=== PATIENT | female | born 1940 | race Caucasian/White ===

== ENCOUNTER 2020-09-13 15:53 | Emergency (ER) | payer MEDICARE, SELFPAY ==
[2020-08-11 14:41] VITALS: BMI 22.4
[2020-09-13 15:55] VITALS: BP 172/141; PULSE 96; RESP 16; TEMP 36.2; O2SAT 94; BMI 20.7
--- NOTE | 2020-09-13 16:03 | EKG12_ITS ---
Test Reason : NEURO Blood Pressure : / mmHG Vent. Rate : 099 BPM Atrial Rate : 104 BPM P-R Int : 000 ms QRS Dur : 072 ms QT Int : 366 ms P-R-T Axes : 000 054 046 degrees QTc Int : 469 ms Atrial fibrillation Abnormal ECG Confirmed by MARTIN BELLAMY, RENNY ([id number]), newspaper managing editor STEFANIA ALBERT ([id number]) on 09/16/2020 10:01:17 AM Referred By: Confirmed By:RENNY SALAZAR MD
--- NOTE | 2020-09-13 16:03 | CT_ITS ---
STUDY: CT BRAIN WITHOUT CONTRAST REASON FOR EXAM: Female, 80 years old. SYNCOPE RADIATION DOSAGE (If Supplied By Facility): CTDIvol = ( 38.43 ) mGy, DLP = ( 698.28 ) mGycm TECHNIQUE: Transaxial CT imaging of the brain was performed without administration of intravenous contrast material. Individualized dose optimization techniques were used for this CT. COMPARISON: No relevant priors. FINDINGS: Normal soft tissue structures. Normal calvarium. There is mild cerebral atrophy with widening of the extra-axial spaces and ventricular dilatation. There are areas of decreased attenuation within the white matter tracts of the supratentorial brain, consistent with microvascular disease changes. Old lacunar infarcts in the basal ganglia. Normal brainstem. There is mild cerebellar atrophy. There is no intracranial hemorrhage. There are no findings of an acute ischemic infarction. Normal visualized paranasal sinuses. CT/Brain/Head without Contrast IMPRESSION: Chronic involutional changes of the brain. No acute hemorrhage Electronically Signed: Jamey Givens MD at 16:43 EDT , Service support ,
--- NOTE | 2020-09-13 16:30 | RAD_ITS ---
STUDY: X-RAY CHEST REASON FOR EXAM: Female, 80 years old. Chest pain/pressure TECHNIQUE: PA and lateral views of the chest. COMPARISON: None. FINDINGS: Lungs are mildly hyperexpanded with chronic interstitial changes, no superimposed acute pulmonary process There is no demonstrated pleural abnormality. Normal size heart. Normal mediastinum and beth. Normal visualized pulmonary arteries. Normal visualized aortic arch and descending thoracic aorta. There are diffuse degenerative changes of the visualized thoracic spine. There is degenerative osteoarthritis of the bilateral shoulders. There is no demonstrated abnormality of the visualized soft tissue structures of the upper abdomen. RAD/Chest PA and Lateral IMPRESSION: Mildly hyperexpanded lungs with chronic interstitial changes, no superimposed acute pulmonary process Electronically Signed: Jamey Givens MD at 16:44 EDT , Service support ,
--- NOTE | 2020-09-13 16:32 | NURSING ---
NO OLD EKGS
--- NOTE | 2020-09-13 18:21 | EDS_ITS ---
HPI History of Present Illness Chief Complaint: Headache Informant: patient and spouse/S.O. Narrative Narrative: History is obtained from multiple people. Patient does have a history of dementia. She states that last she had a pulling sensation in the back of her head. This sensation is actually chronic and has been going on a long time. It is not pain but it is a pulling feeling. She states when she woke up the next day, she feels her vision is off and her balance is off. She states she cannot read the newspaper. However, her family contradicts this. Her states she was reading the newspaper for a while this morning with no problems whatsoever. They state that sometimes her vision comes and goes and is better and worse. states that the patient's been walking around the house is normal. She has some days where she steadier than others but he has noted no difference in the last 10 days. She does have a role levator as well as a cane but she does not usually use those. The patient's son states that 4 days ago she was great. Another family member who is not here thought she was a little bit unsteady today. The story I get from each individual is quite variable. But they all agree that she has had all the symptoms off and on in the past. She does have a history of TIAs or strokes. She had a left carotid stenting. She has a history of atrial fibrillation but takes baby aspirin and Coumadin. [facility] Medical History Anxiety BPPV (benign paroxysmal positional vertigo) CKD (chronic kidney disease) stage 3, GFR 30-59 ml/min COPD (chronic obstructive pulmonary disease) Diverticulosis of colon Essential hypertension GERD (gastroesophageal reflux disease) History of CVA (cerebrovascular accident) Hyperlipidemia Nonrheumatic mitral (valve) insufficiency Osteoarthritis Pericardial effusion Persistent atrial fibrillation PVD (peripheral vascular disease) Stenosis of left carotid artery Syncope Vascular dementia Home Medications acidophilus 7.5 mg (30 million cell)-pectin, citrus 100 mg capsule cap PO 08/10/20 [History Last Taken Unknown] aspirin 81 mg tablet,delayed release 81 mg PO DAILY 08/10/20 [History Last Taken Unknown] atorvastatin 40 mg tablet 40 mg PO QHS 08/10/20 [History Last Taken Unknown] budesonide-formoterol HFA 160 mcg-4.5 mcg/actuation aerosol inhaler 2 puff INHALATION BID 08/10/20 [History Last Taken Unknown] donepezil 10 mg tablet 10 mg PO QHS 08/10/20 [History Last Taken Unknown] ipratropium 0.5 mg-albuterol 3 mg (2.5 mg base)/3 mL nebulization soln 3 ml INHALATION Q6H PRN 08/10/20 [History Last Taken Unknown] metoprolol tartrate 25 mg tablet 25 mg PO BID 08/10/20 [History Last Taken Unk nown] paroxetine HCl 10 mg tablet 10 mg PO DAILY 08/10/20 [History Last Taken Unknown] tiotropium bromide 18 mcg capsule with inhalation device 1 cap INHALATION DAILY 08/10/20 [History Last Taken Unknown] docusate sodium 100 mg capsule 100 mg PO BID 08/11/20 [History Last Taken Unknown] guaifenesin 600 mg tablet, extended release 12 hr 600 mg PO DAILY tab 08/11/20 [History Last Taken Unknown] lisinopril 5 mg tablet 5 mg PO DAILY #90 tab 08/11/20 [Rx Last Taken Unknown] warfarin 2 mg tablet 2 mg PO .COMPLEX #1 tab 08/11/20 [Rx Last Taken Unknown] furosemide [Lasix] 40 mg PO DAILY 09/13/20 [History Last Taken Unknown] Allergy/AdvReac Type Severity Reaction Status Date / Time esomeprazole [From Nexium] Allergy Unknown unknown Verified 08/11/20 14:47 levofloxacin [From Levaquin] Allergy Unknown Rash Verified 08/11/20 14:47 mannitol [From Reclast] Allergy Unknown unknown Verified 08/11/20 14:47 omeprazole Allergy Unknown stomach Verified 08/11/20 14:47 cramps Sulfa (Sulfonamide Allergy Unknown unknown Verified 08/11/20 14:47 Antibiotics) water for injection,sterile Allergy Unknown unknown Verified 08/11/20 14:47 [From Reclast] zoledronic acid Allergy Unknown unknown Verified 08/11/20 14:47 [From Reclast] Family History Mother Parkinson's disease dementia Brother Lupus Sister Sayre's chorea Surgical History History of bilateral cataract extraction History of left common carotid artery stent placement (11/19/19) History of total abdominal hysterectomy History of tubal ligation Social History Smoking Status: Former smoker Tobacco: How many years used: 40 alcohol intake: current substance use type: does not use caffeine: Yes Type: coffee ROS ROS ED Constitutional Constitutional ED: Denies fever(s) or subjective Eyes Eyes: Reports blurry vision and change in vision; Denies diplopia ENT ENT ED: Denies rhinorrhea Cardiovascular Cardiovascular: Denies chest pain or palpitations Respiratory/Chest Respiratory/Chest: Denies cough or dyspnea Gastrointestinal Gastrointestinal: Denies abdominal pain, nausea or vomiting Genitourinary Genitourinary ED: Denies dysuria Musculoskeletal Musculoskeletal: Denies back pain or neck pain Integumentary Denies rash Neurologic Neurologic: Reports other; Denies headache(s), paresthesias or weakness Allergic/Immunologic Allergic/Immunologic ED: Denies urticaria EXAM Physical Exam Const Vital Signs: 09/13/20 15:55 09/13/20 18:28 09/13/20 20:10 Temperature 97.2 F L Temperature Source Temporal Pulse Rate 96 55 L 102 H Respiratory Rate 16 21 H 18 Blood Pressure 172/141 H 118/76 114/84 H Blood Pressure Mean 151 90 94 Pulse Ox 94 92 95 Oxygen Delivery Method Room Air Room Air Room Air Positive well nourished and well developed General Appearance ED: well developed and NAD HEENT Negative for trauma or tenderness Eyes EOMs intact bilaterally Chest Wall inspection of chest normal Resp normal respiratory effort and clear to auscultation bilaterally Cardio regular rate Rhythm: abnormal rhythm GI normal to inspection, nondistended, normoactive bowel sounds and non-tender Palpation: soft Back/Spine no CVA tenderness General Back: Negative for CVA tenderness Extremity normal to inspection Neuro oriented x3 Neuro Narrative: Patient even changed her story on occasion. I got her up and she walked well in the room. There is no discoordination. I find no focal deficit. By her history she states she was not seeing well but she sees well now. She states she can see this morning but according to her she was reading the paper. Sensorium / Orientation: alert Psych mental status grossly normal Skin no rashes or lesions noted MDM MDM MDM Narrative Medical decision making narrative: Patient's electrolytes show mild elevation in creatinine. I do not have old to compare to. CBC is overall normal. INR is just minimally low at 1.8. This is overall still relatively therapeutic. CT of the head shows chronic changes. Patient speech is clear. Her neuro exam is. Normal. She can read here. She is gotten up and walked. She walked to the bathroom. She is stable. She states she has been having trouble reading and walking but her family denies this. I am not sure if this is dementia. Even if this was a small TIA, it happened about 10 or 11 days ago and symptoms are really resolved. She is already on maximal therapy. I do not think the combination of all symptoms require admission. Lab Data Labs: Laboratory Results - last 24 hr 09/13/20 09/13/20 09/13/20 18:15 18:15 18:40 WBC 10.3 RBC 4.53 Hgb 13.0 Hct 42.6 MCV 94.0 MCH 28.7 MCHC 30.5 L RDW Std Deviation 55.7 H RDW Coeff of Jonathan 16.3 H Plt Count 169 MPV 11.8 Immature Gran % (Auto) 0.500 Neut % (Auto) 55.8 Lymph % (Auto) 32.4 [place] % (Auto) 8.2 Eos % (Auto) 2.6 Baso % (Auto) 0.5 Absolute Neuts (auto) 5.8 Absolute Lymphs (auto) 3.35 Nucleated RBC % 0 PT 19.8 H INR 1.8 Sodium 142 Potassium 4.0 Chloride 104 Carbon Dioxide 34.0 H Anion Gap 4 L BUN 26 H Creatinine 1.48 H Estim Creat Clear Calc 22.11 Est GFR (MDRD) Af Amer 43 L Est GFR (MDRD) Non-Af 36 L BUN/Creatinine Ratio 17.6 Glucose 94 Calcium 9.4 Radiography Diagnostic Testing: Radiology Impression Brain CT 09/13/20 16:03 IMPRESSION: Chronic involutional changes of the brain. No acute hemorrhage Electronically Signed: Jamey Givens MD at 16:43 EDT , Service support , Chest X-Ray 09/13/20 16:30 IMPRESSION: Mildly hyperexpanded lungs with chronic interstitial changes, no superimposed acute pulmonary process Electronically Signed: Jamey Givens MD at 16:44 EDT , Service support , EKG Initial EKG: Comments: EKG shows atrial fibrillation which is chronic. Overall rate is controlled at 99. No ventricular ectopy. No acute ST elevation or depression. QRS duration and QTc are normal. Discharge Plan Triage Chief Complaint: Headache ED Provider: Ar Nicole Dx/Rx/DC Orders Clinical Impression: Pressure in head Instructions: ED Headache Unspecified Prescriptions: No Action warfarin 2 mg tablet 2 mg PO .COMPLEX Qty: 1 RF: 0 guaifenesin [Mucus Relief ER] 600 mg tablet extended release 12hr 600 mg PO DAILY RF: 0 docusate sodium [Dulcolax Stool Softener (dss)] 100 mg capsule 100 mg PO BID RF: 0 lisinopril 5 mg tablet 5 mg PO DAILY Qty: 90 RF: 3 acidophilus-pectin, citrus 7.5 mg (30 mill cell)-100 mg capsule PO RF: 0 ipratropium-albuterol 0.5 mg-3 mg(2.5 mg base)/3 mL solution for nebulization 3 ml inhalation Q6H PRN (Reason: Wheezing) RF: 0 aspirin [Adult Low Dose Aspirin] 81 mg tablet,delayed release (DR/EC) 81 mg PO DAILY RF: 0 atorvastatin 40 mg tablet 40 mg PO QHS RF: 0 metoprolol tartrate 25 mg tablet 25 mg PO BID RF: 0 paroxetine HCl 10 mg tablet 10 mg PO DAILY RF: 0 donepezil 10 mg tablet 10 mg PO QHS RF: 0 Spiriva with HandiHaler 18 mcg capsule, w/inhalation device 1 cap inhalation DAILY RF: 0 budesonide-formoterol [Symbicort] 160-4.5 mcg/actuation HFA aerosol inhaler 2 puff inhalation BID RF: 0 furosemide [Lasix] 40 mg tablet 40 mg PO DAILY RF: 0 Primary Care Provider: Manfred Grewal Referrals: Manfred Grewal MD [Primary Care Provider] - 3-5 Days Disposition Disposition: Home, Self Care
[2020-09-13 18:28] VITALS: BP 118/76; PULSE 55; RESP 21; O2SAT 92
[2020-09-13 18:45] LABS: Absolute Lymphocyte Count 3.35 X10^3/uL (0.83-4.51); Absolute Neutrophil Count 5.8 X10^3/uL (2.0-7.7); Basophil# 0.05 X10^3/uL; Basophil% 0.5 % (0-1); Eosinophil# 0.27 X10^3/uL; Eosinophils% 2.6 % (0-5); Hematocrit 42.6 % (37-47); Lymphocyte # 3.35 X10^3/ul (0.83-4.51); Lymphocyte % 32.4 % (19-41); Mean Corp Hgb Conc 30.5 g/dL (32-36); Mean Corpuscular Hgb 28.7 pg (27.0-32.0); Mean Platelet Vol. 11.8 fl (6.2-12.0); Monocyte# 0.85 X10^3/uL; Monocyte% 8.2 % (0-10); NRBC Flagged by Analyzer 0 % (0-5); Neutrophil # 5.76 X10^3/uL (2.7-7.7); Neutrophil % 55.8 % (47-70); Platelet Count 169 K/mm3 (150-450); RBC Distribution Width CV 16.3 % (11.6-14.6); RBC Distribution Width SD 55.7 fl (35.1-43.9); Red Blood Count 4.53 M/mm3 (4.2-5.4); White Blood Count 10.3 K/mm3 (4.4-11.0)
[2020-09-13 19:08] LABS: Anion Gap 4 (5-15); BUN 26 mg/dL (7-18); BUN/Creat Ratio 17.6 RATIO (10-20); Calcium,Total 9.4 mg/dL (8.5-10.1); Chloride 104 mmol/L (98-107); Creatinine, Serum 1.48 mg/dL (0.55-1.02); EST Glomerular Filtration Rate 36 mL/min (>60); Est Glom Filt Rate - Afr Amer 43 mL/min (>60); Estimated Creatinine Clearance 22.11 ml/min; Glucose 94 mg/dL (74-106); Sodium Level 142 mmol/L (136-145)
[2020-09-13 19:18] LABS: International Normalized Ratio 1.8; Prothrombin Time (Protime)PT. 19.8 SECONDS (11.7-14.9)
[2020-09-13 20:10] VITALS: BP 114/84; PULSE 102; RESP 18; O2SAT 95
[2020-09-13 20:50] VITALS: BP 114/84; PULSE 85; RESP 21; O2SAT 95
== END 2020-09-13 20:51 | disposition home or self-care (01) ==
PROVIDERS: Emergency Provider Emergency Medicine; PCP Internal Medicine
DX: R51.9 Headache, unspecified (principal); I48.20 Chronic atrial fibrillation, unspecified; E78.5 Hyperlipidemia, unspecified; F01.50 Vascular dementia, unspecified severity, without behavioral disturbance, psychotic disturbance, mood disturbance, and anxiety; F41.9 Anxiety disorder, unspecified; I12.9 Hypertensive chronic kidney disease with stage 1 through stage 4 chronic kidney disease, or unspecified chronic kidney disease; J44.9 Chronic obstructive pulmonary disease, unspecified; K21.9 Gastro-esophageal reflux disease without esophagitis; M19.90 Unspecified osteoarthritis, unspecified site; K57.30 Diverticulosis of large intestine without perforation or abscess without bleeding; N18.30 Chronic kidney disease, stage 3 unspecified; Z79.01 Long term (current) use of anticoagulants; Z79.82 Long term (current) use of aspirin; Z79.899 Other long term (current) drug therapy; Z86.73 Personal history of transient ischemic attack (TIA), and cerebral infarction without residual deficits; Z87.891 Personal history of nicotine dependence
CPT/HCPCS: 70450; 71046; 80048; 85025; 85610; 93005; 99284; J7030

== ENCOUNTER 2022-06-08 08:30 | Outpatient (RCR) | payer MEDICARE, SELFPAY ==
[2022-05-25 09:10] VITALS: BP 105/60; PULSE 99; RESP 16; TEMP 35.5
--- NOTE | 2022-05-25 10:46 | PCM.WC.HP ---
History of Present Illness Date of Service: 05/25/22 Chief Complaint: Left lower extremity wound x2 History of Wound: Patient is an 81-year-old female who was referred to the wound care center for left lower extremity ulceration x2. She is a resident of [facility]. 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 Prior to being seen in the wound care center she was being treated by Anushka Dong CNP. She has undergone LEAS on 05/15/2022. She is not currently on antibiotics. Review of the notes state ulceration to the left anterior lower extremity is secondary to bumping her leg, while the posterior left lower extremity ulceration started as a eschar on the back of the leg and subsequently broke down. Patient states these wounds may have been present for a year, however her history seems poor. Stamp Pad Finisher states wounds have been present for a few weeks. [facility] Medical History (Updated 05/25/22 @ 12:[address] Asad Asher DPM) Anxiety BPPV (benign paroxysmal positional vertigo) CKD (chronic kidney disease) stage 3, GFR 30-59 ml/min COPD (chronic obstructive pulmonary disease) Diverticulosis of colon Essential hypertension GERD (gastroesophageal reflux disease) History of CVA (cerebrovascular accident) Hyperlipidemia Nonrheumatic mitral (valve) insufficiency Osteoarthritis Pericardial effusion Persistent atrial fibrillation PVD (peripheral vascular disease) Stenosis of left carotid artery Syncope Vascular dementia Home Medications acidophilus 7.5 mg (30 million cell)-pectin, citrus 100 mg capsule cap PO 08/10/20 [History Last Taken Unknown] aspirin 81 mg tablet,delayed release (Adult Low Dose Aspirin) 81 mg PO DAILY 08/10/20 [History Last Taken Unknown] atorvastatin 40 mg tablet 40 mg PO QHS 08/10/20 [History Last Taken Unknown] budesonide-formoterol HFA 160 mcg-4.5 mcg/actuation aerosol inhaler (Symbicort) 2 puff inhalation BID 08/10/20 [History Last Taken Unknown] donepezil 10 mg tablet 10 mg PO QHS 08/10/20 [History Last Taken Unknown] ipratropium 0.5 mg-albuterol 3 mg (2.5 mg base)/3 mL nebulization soln 3 ml inhalation Q6H PRN Wheezing 08/10/20 [History Last Taken Unknown] metoprolol tartrate 25 mg tablet 25 mg PO BID 08/10/20 [History Last Taken Unknown] paroxetine HCl 10 mg tablet 10 mg PO DAILY 08/10/20 [History Last Taken Unknown] tiotropium bromide 18 mcg capsule with inhalation device (Spiriva with HandiHaler) 1 cap inhalation DAILY 08/10/20 [History Last Taken Unknown] docusate sodium 100 mg capsule (Dulcolax Stool Softener (docusate)) 100 mg PO BID 08/11/20 [History Last Taken Unknown] guaifenesin 600 mg tablet, extended release 12 hr (Mucus Relief ER) 600 mg PO DAILY 08/11/20 [History Last Taken Unknown] lisinopril 5 mg tablet 5 mg PO DAILY #90 tabs 08/11/20 [Rx Last Taken Unknown] warfarin 2 mg tablet 2 mg PO .COMPLEX #1 TAB 08/11/20 [Rx Last Taken Unknown] furosemide 40 mg tablet (Lasix) 40 mg PO DAILY 09/13/20 [History Last Taken Unknown] Allergy/AdvReac Type Severity Reaction Status Date / Time esomeprazole [From Nexium] Allergy Unknown unknown Verified 08/11/20 14:47 levofloxacin [From Levaquin] Allergy Unknown Rash Verified 08/11/20 14:47 mannitol [From Reclast] Allergy Unknown unknown Verified 08/11/20 14:47 omeprazole Allergy Unknown stomach Verified 08/11/20 14:47 cramps Sulfa (Sulfonamide Allergy Unknown unknown Verified 08/11/20 14:47 Antibiotics) water for injection,sterile Allergy Unknown unknown Verified 08/11/20 14:47 [From Reclast] zoledronic acid Allergy Unknown unknown Verified 08/11/20 14:47 [From Reclast] Family History Mother Parkinson's disease dementia Brother Lupus Sister Donald's chorea Surgical History History of bilateral cataract extraction History of left common carotid artery stent placement (11/19/19) History of total abdominal hysterectomy History of tubal ligation Social History Smoking Status: Former smoker Tobacco: How many years used: 40 alcohol intake: current substance use type: does not use caffeine: Yes Type: coffee ROS Constitutional Constitutional: Denies chills, fatigue, fever(s) or malaise Eyes Eyes: Denies blurry vision, change in vision or eye pain ENT HEENT: Denies dysphagia, nasal congestion or sore throat Cardiovascular Cardiovascular: Denies chest pain, claudication or palpitations Respiratory/Chest Respiratory/Chest: Denies cough or shortness of breath at rest Gastrointestinal Gastrointestinal: Denies abdominal pain, constipation, diarrhea, nausea or vomiting Genitourinary Genitourinary: Denies dysuria, hematuria or urinary frequency Musculoskeletal Musculoskeletal: Denies back pain, joint pain, joint stiffness or joint swelling Integumentary Integumentary: Denies lesions, pruritus or rash Neurologic Neurologic: Denies dizziness, numbness or seizures Psychiatric Psychiatric: Reports anxiety Endocrine Endocrinology: Denies cold intolerance or heat intolerance Vital Signs Vital Signs Vital Signs: 05/25/22 09:10 Temperature 95.9 F L Temperature Source Temporal Pulse Rate 99 Respiratory Rate 16 Blood Pressure 105/60 Blood Pressure Mean 75 Blood Pressure Source Monitor Blood Pressure Position Sitting Blood Pressure Location Right Arm Oxygen Delivery Method Nasal Cannula Oxygen Flow Rate (L/min) 2 Physical Exam Const alert, oriented x3 and no apparent distress General Appearance: cooperative HEENT normocephalic Eyes General Eye: normal appearance of both eyes Neck General: normal visual inspection Lymph Lymphatic: no lymphadenopathy noted and no lymphedema noted Resp normal respiratory effort Cardio regular rate and regular rhythm Extremity normal capillary refill, no calf tenderness and no pedal edema Extremity Narrative: DP and PT pulses nonpalpable and monophasic on Doppler. Capillary fill time is delayed to the digits. Normal temperature gradient with absent hair growth to the digits. +2 pitting edema about the lower extremity. No pedal edema is noted. Musculoskeletal: Muscle strength 5/5 and age-appropriate. Skin no rashes or lesions noted, skin turgor normal and no jaundice Wound Narrative: Left lower extremity: Anterior leg ulceration with mixed fibrogranular layer and friable skin about the border of the wound. Posterior medial ulceration demonstrates mixed fibrogranular layer about the outer margins with thick dense eschar at the central aspect of the wound with slight malodor secondary to eschar breakdown and localized erythema about the wound margin. Ulcerations demonstrate no purulent drainage, no palpable fluctuance/bogginess, no visible abscess formation, no lymphangitis. Neuro moves all extremities Debridement Note Debridement Note Wound debrided: Left lower extremity x2 Laterality: Left Wound Grade/Stage: Chappell stage I Type of Debridement: Excisional debridement Anesthesia Used: 5% Lidocaine Gel Depth: Down to and including healthy tissue and in the subcutaneous layer Percentage of wound debrided: 100 Instrument Used: - (4 cc 1% lidocaine with epinephrine) Severity: Fat Layer Exposed Amount of bleeding with debridement: Mild Bleeding Controlled with: Compression and gauze Patient tolerated procedure: Patient tolerated procedure well Post-Debridement Measurements and Additional Note: Post-Debridement Measurements/Treatment - Nurse 1 - General Ulcer Assessment Start: 05/25/22 09:10 Freq: Status: Active Protocol: KENDALL Activity Type Activity Date Activity User E-sign Co-sign Detail Recorded Client Recorded Date Recorded By Document 05/25/22 09:10 DEBBY [id number] 05/25/22 09:21 DEBBY 05/25/22 09:10 - Today's Visit Information Type of service Initial Visit Arrival Mode Wheelchair Transfer Assistance Other Transfer Assist (Other) 2 stand by Accompanied by nurse Patient Identification Verified (Name & Yes ) Patient Requires Transmission-Based No Precautions Vital Signs Temperature (97.8 F-99.1 F) 95.9 F L Temperature Source Temporal Pulse Rate (60-100) 99 Pulse Location Monitor Respiratory Rate (12-18) 16 Respiratory rate source Observation Oxygen Delivery Method Nasal Cannula O2 L/MIN 2 Blood Pressure (90/60-120/80) 105/60 Blood Pressure Mean 75 Source Monitor Position Sitting Blood Pressure Location Right Arm History Since Last Visit- (Skip if this is Patient's initial visit) Left Footwear Regular Shoe Right Footwear Regular Shoe Pain Scale: 0-10 Numeric Is Patient Pain Free? Yes Communication Assessment Preferred language Ivorian Water Pollution Scientist Required No Right Hearing Abillity Hard of Hearing Left Hearing Abillity Hard of Hearing Visual Assistive Devices Glasses Teaching Assessment Preferences Verbal,Written, Audio/Visual, Demonstration Barriers to Learning None Anxiety Level Calm Cooperation Cooperative [facility] Nurse 1 - General Ulcer Measurement Start: 05/25/22 09:10 Freq: Status: Active Protocol: Activity Type Activity Date Activity User E-sign Co-sign Detail Recorded Client Recorded Date Recorded By Document 05/25/22 09:10 [id number] 05/25/22 09:21 05/25/22 09:10 Wound Center Nurse 1 #2- L MED CALF -Combined with other wound No -Current Size (cm) - Length 5.7 -Current Size (cm) - Width 3 -Current Size (cm) - Depth 0.3 -Total Square Cm 17.1 -Date of Last Picture (Recall this 05/25/22 field) -Photo Taken Yes -Epithelialization None Present -Tunneling No -Undermining/Tunneling No -Circular Undermining No -Exudate Amt Medium -Exudate Type Serosanguineous -Wound Margin Distinct, Outline Attached -Granulation Amt None Present (0 %) -Slough/Fibrin Yes -Necrosis Amt Large (67-100%) -Necrotic Tissue Type Eschar -Texture (Senia-wound Skin Appearance) Assessed, Scarring -Moisture (Senia-wound Skin Appearance) Assessed -Color (Senia-wound Skin Appearance) Assessed, Erythema -Temperature (Senia-wound Skin No Abnormality Appearance) (Pt Warm) -Tenderness on Palpation (Senia-wound No Skin Appearance) -Ulcer Cleansing Rinsed/ Irrigated with Saline -Foul Odor after Cleansing No -Anesthetic Used 5% Lidocaine Gel #1- L GARDNER -Combined with other wound No -Current Size (cm) - Length 0.7 -Current Size (cm) - Width 0.8 -Current Size (cm) - Depth 0.1 -Total Square Cm 0.56 -Date of Last Picture (Recall this 05/25/22 field) -Photo Taken Yes -Epithelialization None Present -Tunneling No -Undermining/Tunneling No -Circular Undermining No -Exudate Amt Medium -Exudate Type Serosanguineous -Wound Margin Distinct, Outline Attached -Granulation Amt Small (1-33%) -Granulation Quality Red -Slough/Fibrin Yes -Necrosis Amt Large (67-100%) -Necrotic Tissue Type Adherent Slough -Texture (Senia-wound Skin Appearance) Assessed, Scarring -Moisture (Senia-wound Skin Appearance) Assessed -Color (Senia-wound Skin Appearance) Assessed, Erythema -Temperature (Senia-wound Skin No Abnormality Appearance) (Pt Warm) -Tenderness on Palpation (Senia-wound Yes Skin Appearance) -Ulcer Cleansing Rinsed/ Irrigated with Saline -Foul Odor after Cleansing No -Anesthetic Used 5% Lidocaine Gel Lower Limb Edema Present Yes Right Calf (cm) 27.6 Right Ankle (cm) 21 Left Calf (cm) 28.5 Left Ankle (cm) 23.3 WC - Nurse 2 - General Ulcer CM Notes Start: 05/25/22 09:10 Freq: Status: Active Protocol: Activity Type Activity Date Activity User E-sign Co-sign Detail Recorded Client Recorded Date Recorded By Document 05/25/22 09:38 PL [id number] 05/25/22 09:41 PL Document 05/25/22 09:47 PL [id number] 05/25/22 10:14 PL 05/25/22 05/25/22 09:38 09:47 Wound Center Nurse 2 #2- L MED CALF -Time 09:50 -Correct Patient Yes -Correct Side, Site, Position Yes -Correct Procedure Yes -Procedure Performed Yes -Type of Procedure Debridement -Clinical Debridement Subcutaneous -Tissue Removed Epidermis, Subcutaneous -Post Debridement (cm) - Length 0.5 -Post Debridement (cm) - Width 0.6 -Post Debridement (cm) - Depth 0.1 -Total Square (Post) (cm) 0.30 -Area of Debridement (cm) - Length 0.5 -Area of Debridement (cm) - Width 0.6 -Total Square (Area) (cm) 0.30 -Tunneling No -Undermining/Tunneling No -Circular Undermining No -Wound/Ulcer Outcome Not Healed -Ulcer Cleansing Rinsed/ Irrigated with Saline -Foul Odor after Cleansing No -Bioengineered Tissue No -Bleeding Controlled with Pressure -Treatment Response Procedure Tolerated Well -Debridement - Subq, 1st 20sq cm No #1- L GARDNER -Time 09:50 -Correct Patient Yes -Correct Side, Site, Position Yes -Correct Procedure Yes -Procedure Performed Yes -Type of Procedure Debridement -Clinical Debridement Subcutaneous -Tissue Removed Subcutaneous -Post Debridement (cm) - Length 0.5 -Post Debridement (cm) - Width 0.5 -Post Debridement (cm) - Depth 0.1 -Total Square (Post) (cm) 0.25 -Area of Debridement (cm) - Length 0.5 -Area of Debridement (cm) - Width 0.5 -Total Square (Area) (cm) 0.25 -Tunneling No -Undermining/Tunneling No -Circular Undermining No -Wound/Ulcer Outcome Not Healed -Ulcer Cleansing Rinsed/ Irrigated with Saline -Foul Odor after Cleansing No -Bioengineered Tissue No -Bleeding Controlled with Pressure -Treatment Response Procedure Tolerated Well -Debridement - Subq, 1st 20sq cm Yes Pain Scale: 0-10 Numeric Is Patient Pain Free? Yes Yes - Nurse 3 - General Ulcer D/C NN Start: 05/25/22 09:10 Freq: Status: Active Protocol: Activity Type Activity Date Activity User E-sign Co-sign Detail Recorded Client Recorded Date Recorded By Document 05/25/22 10:20 [facility] [id number] 05/25/22 10:21 [facility] 05/25/22 10:20 Wound Care Center Nurse 3 #2- L MED CALF -Ulcer Cleansing Rinsed/ Irrigated with Saline -Foul Odor after Cleansing No -Primary Dressing Applied Promogran Nargis Matter -Other Dressing ABD -Primary Dressing Covered/Secured with Dry Gauze & Roll Gauze, Secured with Tape -Promogran Nargis Matter 1 #1- L GARDNER -Ulcer Cleansing Rinsed/ Irrigated with Saline -Foul Odor after Cleansing No -Primary Dressing Applied Promogran Nargis Matter -Primary Dressing Covered/Secured with Dry Gauze & Roll Gauze, Secured with Tape -Promogran Nargis Matter 0 Left -Tubular Bandage Single Layer -Size of Tubigrip Used Size C -Size C ($) 1 Treatment Response Procedure Tolerated Well Pain Scale: 0-10 Numeric Is Patient Pain Free? Yes - Visit Discharge Discharge Condition Stable Ambulatory Status Wheelchair Transportation ECF Facility Type Group Home Care Facility Assessment/Plan Assessment/Plan (1) CHF (congestive heart failure), NYHA class III: CODE(S): I50.9 - Heart failure, unspecified (2) Essential hypertension: CODE(S): I10 - Essential (primary) hypertension (3) Hyperlipidemia: CODE(S): E78.5 - Hyperlipidemia, unspecified (4) CKD (chronic kidney disease) stage 3, GFR 30-59 ml/min: CODE(S): N18.30 - Chronic kidney disease, stage 3 unspecified (5) Difficulty in walking, not elsewhere classified: CODE(S): R26.2 - Difficulty in walking, not elsewhere classified (6) Unspecified severe protein-calorie malnutrition: CODE(S): E43 - Unspecified severe protein-calorie malnutrition (7) Atherosclerosis of unga arteries of left leg with ulceration of calf: CODE(S): I70.242 - Atherosclerosis of unga arteries of left leg with ulceration of calf (8) Non-pressure chronic ulcer of left calf with fat layer exposed: CODE(S): L97.222 - Non-pressure chronic ulcer of left calf with fat layer exposed (9) PVD (peripheral vascular disease): CODE(S): I73.9 - Peripheral vascular disease, unspecified PLAN: Plan Patient seen and evaluated She did undergo LEAS on 05/15/2022. Doppler evaluation of bilateral lower extremity arteries was obtained and waveforms were noted to be multiphasic and monophasic continuously bilaterally. Velocities are as follows: Right: Common femoral artery 114; SFA proximal, mid, and distal 98, 98, and 45; popliteal artery 38; posterior tibial artery 12 mono; DP not visualized. Left: Common femoral artery 40 to continuity/parvus; SFA proximal, mid, distal 39, 24, 22 mono continuous/parvus; popliteal artery 19 mono continuous/parvus; posterior tibial artery not visualized; dorsalis pedis artery not visualized. Conclusion: Nonvisualization of bilateral dorsalis pedis and right posterior tibial does not exclude occlusion. There is greater than 50% stenosis throughout the entire left lower extremity and there is left aortoiliac disease. She will be referred to vascular surgeon, Dr. Easton for further evaluation. She has 2 left lower extremity ulcerations: #1 anterior leg ulceration with mixed fibrogranular layer and friable skin about the border of the wound measures 0.3 cm x 0.5 cm x 0.1 cm. No signs of infection. #2 posterior medial ulceration demonstrates mixed fibrogranular layer about the outer margins with thick dense eschar at the central aspect of the wound with slight malodor secondary to eschar breakdown and localized erythema about the wound margin, ulceration measures 5.5 cm x 3.1 cm x 0.1 cm. Ulcerations underwent debridement as noted in the clinical panel above. Due to the localized redness about the rim of the ulcerative site of the posterior medial wound she was placed on oral doxycycline 100 mg twice daily x 10 days. Nargis applied to the ulcerative sites and dressed with dry sterile dressing. Tubigrip compression applied to the left lower extremity. snf facility to change dressings daily. Encouraged pressure reduction of the site by ensuring the leg does not hang off the edge of the bed or have anything resting against the back of the leg this is including her contralateral heel as she often sleeps on her side. Encouraged continued protein intake and healthy amount of calories to aid in healing of her ulcerative sites. Signs and symptoms of infection were discussed today with the skilled nursing facilities professional and patient. She was instructed if she notices increasing redness about the wound site moving up the leg, any purulent drainage from the ulcer sites, increasing foul odor, or if she experiences fever greater than 101 degree, nausea, vomiting, or chills that these are signs of a progressing infection and she should report to the ED for IV antibiotics. The following work up and care recommendations were made: Dressing: Nargis dry sterile dressing, Tubigrip compression Wash: Tissue growth optimization: Offload: Offload left lower extremity at all times for pressure reduction about the ulcerative site Vascular: LEAS performed on 05/15/2022 demonstrate moderate arterial stenosis of the left lower extremity. Referral to vascular surgery placed with Dr. Easton Edema: Tubigrip compression and elevation of lower extremities at times of rest Pain: May take [id number] Tylenol extra strength for discomfort Host factors: PVD I answered all the patient's questions. To return to the wound healing center in 1 week or call sooner if the patient has any questions or concerns.
[2022-06-01 08:34] VITALS: BP 96/54; PULSE 99; RESP 16; TEMP 36.8
--- NOTE | 2022-06-01 08:47 | PCM.WC.PN ---
History of Present Illness Date of Service: 06/01/22 Chief Complaint: Left lower extremity wound x2 History of Wound: Patient is an 81-year-old female who was referred to the wound care center for left lower extremity ulceration x2. She is a resident of [facility]. 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 Prior to being seen in the wound care center she was being treated by Anushka Dong CNP. She has undergone LEAS on 05/15/2022. She is not currently on antibiotics. Review of the notes state ulceration to the left anterior lower extremity is secondary to bumping her leg, while the posterior left lower extremity ulceration started as a eschar on the back of the leg and subsequently broke down. Patient states these wounds may have been present for a year, however her history seems poor. Software Quality Assurance Engineer states wounds have been present for a few weeks. Subjective Subjective Patient is an 81-year-old female who presents to the wound care center for follow-up of to left lower extremity ulcerations. Nursing facility has been changing the dressings daily. She denies any constitutional symptoms today. Denies any further complaints today. Objective Data Objective Data Vital Signs: Vital Signs Temp Pulse Resp BP O2 Del Method O2 Flow Rate 98.3 F 99 16 96/54 L Nasal Cannula 2 06/01/22 08:34 06/01/22 08:34 06/01/22 08:34 06/01/22 08:34 05/25/22 09:10 05/25/22 09:10 Oxygen Flow Rate (L/min) 2 Oxygen Delivery Method Nasal Cannula Physical Exam Const alert, oriented x3 and no apparent distress General Appearance: cooperative HEENT normocephalic Eyes General Eye: normal appearance of both eyes Neck General: normal visual inspection Lymph Lymphatic: no lymphadenopathy noted and no lymphedema noted Resp normal respiratory effort Cardio regular rate and regular rhythm Extremity normal capillary refill, no calf tenderness and no pedal edema Extremity Narrative: DP and PT pulses nonpalpable and monophasic on Doppler. Capillary fill time is delayed to the digits. Normal temperature gradient with absent hair growth to the digits. +2 pitting edema about the lower extremity. No pedal edema is noted. Musculoskeletal: Muscle strength 5/5 and age-appropriate. Skin no rashes or lesions noted, skin turgor normal and no jaundice Wound Narrative: Left lower extremity: Anterior leg ulceration with mixed fibrogranular layer and friable skin about the border of the wound. Posterior medial ulceration demonstrates mixed fibrogranular layer about the outer margins with thick dense eschar at the central aspect of the wound with slight malodor secondary to eschar breakdown and localized erythema about the wound margin. Ulcerations demonstrate no purulent drainage, no palpable fluctuance/bogginess, no visible abscess formation, no lymphangitis. Neuro moves all extremities Debridement Note Debridement Note Wound debrided: Left lower extremity x2 Laterality: Left Wound Grade/Stage: Chappell stage I Type of Debridement: Excisional debridement Anesthesia Used: 5% Lidocaine Gel Depth: Down to and including healthy tissue and in the subcutaneous layer Percentage of wound debrided: 100 Instrument Used: 5mm curette Tissue Removed: Fibrous, devitalized subcutaneous, biofilm, slough Severity: Fat Layer Exposed Amount of bleeding with debridement: Mild Bleeding Controlled with: Compression and gauze Patient tolerated procedure: Patient tolerated procedure well Post-Debridement Measurements and Additional Note: Post-Debridement Measurements/Treatment - Nurse 1 - General Ulcer Assessment Start: 05/25/22 09:10 Freq: Status: Active Protocol: [email or web address].TIA Activity Type Activity Date Activity User E-sign Co-sign Detail Recorded Client Recorded Date Recorded By Document 05/25/22 09:10 [id number] 05/25/22 09:21 Document 06/01/22 08:34 [id number] 06/01/22 08:39 05/25/22 06/01/22 09:10 08:34 - Today's Visit Information Type of service Initial Visit Follow-up Visit (Physician/COMPENSATION ADMINISTRATOR ) Arrival Mode Wheelchair Wheelchair Transfer Assistance Other Manual Transfer Assist (Other) 2 stand by Accompanied by nurse Patient Identification Verified (Name & Yes Yes ) Patient Requires Transmission-Based No No Precautions Vital Signs Temperature (97.8 F-99.1 F) 95.9 F L 98.3 F Temperature Source Temporal Temporal Pulse Rate (60-100) 99 99 Pulse Location Monitor Monitor Respiratory Rate (12-18) 16 16 Respiratory rate source Observation Observation Oxygen Delivery Method Nasal Cannula O2 L/MIN (L/min) 2 Blood Pressure (90/60-120/80) 105/60 96/54 L Blood Pressure Mean (mm Hg) 75 68 Source Monitor Monitor Position Sitting Semi-Fowlers Blood Pressure Location Right Arm Right Arm History Since Last Visit- (Skip if this is Patient's initial visit) Have you changed medications since your No last visit? Any new allergies or adverse reactions No Had a fall/change in ADL's that may No increase risk of falls Signs or symptoms of abuse and/or No neglect since last visit Have you been in the hospital since your No last visit? Has dressing in place as prescribed Yes Has compression in place as prescribed Yes Has offloadiing in place as prescribed N/A Experienced any changes in pain level or No management Left Footwear Regular Shoe Slipper Right Footwear Regular Shoe Slipper Pain Scale: 0-10 Numeric Is Patient Pain Free? Yes Yes Communication Assessment Preferred language [place] Fiberglass Tube Molder Required No Right Hearing Abillity Hard of Hearing Left Hearing Abillity Hard of Hearing Visual Assistive Devices Glasses Teaching Assessment Preferences Verbal,Written, Audio/Visual, Demonstration Barriers to Learning None Anxiety Level Calm Cooperation Cooperative WC - Nurse 1 - General Ulcer Measurement Start: 05/25/22 09:10 Freq: Status: Active Protocol: Activity Type Activity Date Activity User E-sign Co-sign Detail Recorded Client Recorded Date Recorded By Document 05/25/22 09:10 [id number] 05/25/22 09:21 Document 06/01/22 08:34 [id number] 06/01/22 08:39 05/25/22 06/01/22 09:10 08:34 Wound Center Nurse 1 #2- L MED CALF -Combined with other wound No No -Current Size (cm) - Length 5.7 5.6 -Current Size (cm) - Width 3 2.8 -Current Size (cm) - Depth 0.3 0.9 -Total Square Cm 17.1 15.68 -Date of Last Picture (Recall this 05/25/22 field) -Photo Taken Yes Yes -Epithelialization None Present Small 1-33% -Tunneling No No -Undermining/Tunneling No No -Circular Undermining No No -Exudate Amt Medium Medium -Exudate Type Serosanguineous Serosanguineous -Wound Margin Distinct, Flat & Intact Outline Attached -Granulation Amt None Present (0 None Present (0 %) %) -Slough/Fibrin Yes Yes -Necrosis Amt Large (67-100%) Large (67-100%) -Necrotic Tissue Type Eschar Adherent Slough -Structure Exposed N/A -Texture (Senia-wound Skin Appearance) Assessed, Assessed Scarring -Moisture (Senia-wound Skin Appearance) Assessed Assessed,Dry/ Scaly -Color (Senia-wound Skin Appearance) Assessed, Assessed, Erythema Erythema -Temperature (Senia-wound Skin No Abnormality No Abnormality Appearance) (Pt Warm) (Pt Warm) -Tenderness on Palpation (Senia-wound No No Skin Appearance) -Ulcer Cleansing Rinsed/ Wound Cleanser Irrigated with Saline -Foul Odor after Cleansing No No -Anesthetic Used 5% Lidocaine 5% Lidocaine Gel Gel #1- L GARDNER -Combined with other wound No No -Current Size (cm) - Length 0.7 0.5 -Current Size (cm) - Width 0.8 0.5 -Current Size (cm) - Depth 0.1 0.1 -Total Square Cm 0.56 0.25 -Date of Last Picture (Recall this 05/25/22 field) -Photo Taken Yes Yes -Epithelialization None Present None Present -Tunneling No No -Undermining/Tunneling No No -Circular Undermining No No -Exudate Amt Medium None Present -Exudate Type Serosanguineous -Wound Margin Distinct, Fibrotic Scar, Outline Thickened Scar Attached -Granulation Amt Small (1-33%) None Present (0 %) -Granulation Quality Red -Slough/Fibrin Yes Yes -Necrosis Amt Large (67-100%) Large (67-100%) -Necrotic Tissue Type Adherent Slough Adherent Slough -Structure Exposed N/A -Texture (Senia-wound Skin Appearance) Assessed, Assessed, Scarring Localized Edema -Moisture (Senia-wound Skin Appearance) Assessed Assessed,Dry/ Scaly -Color (Senia-wound Skin Appearance) Assessed, Assessed Erythema -Temperature (Senia-wound Skin No Abnormality No Abnormality Appearance) (Pt Warm) (Pt Warm) -Tenderness on Palpation (Senia-wound Yes No Skin Appearance) -Ulcer Cleansing Rinsed/ Rinsed/ Irrigated with Irrigated with Saline Saline -Foul Odor after Cleansing No No -Anesthetic Used 5% Lidocaine 5% Lidocaine Gel Gel Lower Limb Edema Present Yes Yes Right Calf (cm) 27.6 Right Ankle (cm) 21 Left Calf (cm) 28.5 26.7 Left Ankle (cm) 23.3 22.3 WC - Nurse 2 - General Ulcer CM Notes Start: 05/25/22 09:10 Freq: Status: Active Protocol: Activity Type Activity Date Activity User E-sign Co-sign Detail Recorded Client Recorded Date Recorded By Document 05/25/22 09:38 PL [id number] 05/25/22 09:41 PL Document 05/25/22 09:47 PL [id number] 05/25/22 10:14 PL 05/25/22 05/25/22 09:38 09:47 Wound Center Nurse 2 #2- L MED CALF -Time 09:50 -Correct Patient Yes -Correct Side, Site, Position Yes -Correct Procedure Yes -Procedure Performed Yes -Type of Procedure Debridement -Clinical Debridement Subcutaneous -Tissue Removed Epidermis, Subcutaneous -Post Debridement (cm) - Length 0.5 -Post Debridement (cm) - Width 0.6 -Post Debridement (cm) - Depth 0.1 -Total Square (Post) (cm) 0.30 -Area of Debridement (cm) - Length 0.5 -Area of Debridement (cm) - Width 0.6 -Total Square (Area) (cm) 0.30 -Tunneling No -Undermining/Tunneling No -Circular Undermining No -Wound/Ulcer Outcome Not Healed -Ulcer Cleansing Rinsed/ Irrigated with Saline -Foul Odor after Cleansing No -Bioengineered Tissue No -Bleeding Controlled with Pressure -Treatment Response Procedure Tolerated Well -Debridement - Subq, 1st 20sq cm No #1- L GARDNER -Time 09:50 -Correct Patient Yes -Correct Side, Site, Position Yes -Correct Procedure Yes -Procedure Performed Yes -Type of Procedure Debridement -Clinical Debridement Subcutaneous -Tissue Removed Subcutaneous -Post Debridement (cm) - Length 0.5 -Post Debridement (cm) - Width 0.5 -Post Debridement (cm) - Depth 0.1 -Total Square (Post) (cm) 0.25 -Area of Debridement (cm) - Length 0.5 -Area of Debridement (cm) - Width 0.5 -Total Square (Area) (cm) 0.25 -Tunneling No -Undermining/Tunneling No -Circular Undermining No -Wound/Ulcer Outcome Not Healed -Ulcer Cleansing Rinsed/ Irrigated with Saline -Foul Odor after Cleansing No -Bioengineered Tissue No -Bleeding Controlled with Pressure -Treatment Response Procedure Tolerated Well -Debridement - Subq, 1st 20sq cm Yes Pain Scale: 0-10 Numeric Is Patient Pain Free? Yes Yes - Nurse 3 - General Ulcer D/C NN Start: 05/25/22 09:10 Freq: Status: Active Protocol: Activity Type Activity Date Activity User E-sign Co-sign Detail Recorded Client Recorded Date Recorded By Document 05/25/22 10:20 [facility] [id number] 05/25/22 10:21 [facility] 05/25/22 10:20 Wound Care Center Nurse 3 #2- L MED CALF -Ulcer Cleansing Rinsed/ Irrigated with Saline -Foul Odor after Cleansing No -Primary Dressing Applied Promogran Nargis Matter -Other Dressing ABD -Primary Dressing Covered/Secured with Dry Gauze & Roll Gauze, Secured with Tape -Promogran Nargis Matter 1 #1- L GARDNER -Ulcer Cleansing Rinsed/ Irrigated with Saline -Foul Odor after Cleansing No -Primary Dressing Applied Promogran Nargis Matter -Primary Dressing Covered/Secured with Dry Gauze & Roll Gauze, Secured with Tape -Promogran Nargis Matter 0 Left -Tubular Bandage Single Layer -Size of Tubigrip Used Size C -Size C ($) 1 Treatment Response Procedure Tolerated Well Pain Scale: 0-10 Numeric Is Patient Pain Free? Yes - Visit Discharge Discharge Condition Stable Ambulatory Status Wheelchair Transportation [facility]CF Facility [facility] Assessment/Plan Assessment/Plan (1) CHF (congestive heart failure), NYHA class III: CODE(S): I50.9 - Heart failure, unspecified (2) Essential hypertension: CODE(S): I10 - Essential (primary) hypertension (3) Hyperlipidemia: CODE(S): E78.5 - Hyperlipidemia, unspecified (4) CKD (chronic kidney disease) stage 3, GFR 30-59 ml/min: CODE(S): N18.30 - Chronic kidney disease, stage 3 unspecified (5) Difficulty in walking, not elsewhere classified: CODE(S): R26.2 - Difficulty in walking, not elsewhere classified (6) Unspecified severe protein-calorie malnutrition: CODE(S): E43 - Unspecified severe protein-calorie malnutrition (7) Atherosclerosis of [place] arteries of left leg with ulceration of calf: CODE(S): I70.242 - Atherosclerosis of [place] arteries of left leg with ulceration of calf (8) Non-pressure chronic ulcer of left calf with fat layer exposed: CODE(S): L97.222 - Non-pressure chronic ulcer of left calf with fat layer exposed (9) PVD (peripheral vascular disease): CODE(S): I73.9 - Peripheral vascular disease, unspecified PLAN: Plan Patient seen and evaluated She did undergo LEAS on 05/15/2022. Doppler evaluation of bilateral lower extremity arteries was obtained and waveforms were noted to be multiphasic and monophasic continuously bilaterally. Velocities are as follows: Right: Common femoral artery 114; SFA proximal, mid, and distal 98, 98, and 45; popliteal artery 38; posterior tibial artery 12 mono; DP not visualized. Left: Common femoral artery 40 to continuity/parvus; SFA proximal, mid, distal 39, 24, 22 mono continuous/parvus; popliteal artery 19 mono continuous/parvus; posterior tibial artery not visualized; dorsalis pedis artery not visualized. Conclusion: Nonvisualization of bilateral dorsalis pedis and right posterior tibial does not exclude occlusion. There is greater than 50% stenosis throughout the entire left lower extremity and there is left aortoiliac disease. She will be referred to vascular surgeon, Dr. Easton for further evaluation. She has 2 left lower extremity ulcerations: #1 anterior leg ulceration with mixed fibrogranular layer and friable skin about the border of the wound measures 1.0 cm x 0.4 cm x 0.1 cm. No signs of infection. #2 posterior medial ulceration demonstrates mixed fibrogranular layer about the outer margins with thick dense eschar at the central aspect of the wound with slight malodor secondary to eschar breakdown and localized erythema about the wound margin, ulceration measures 5.6 cm x 3.0 cm x 0.1 cm. Ulcerations underwent debridement as noted in the clinical panel above. Due to the localized redness about the rim of the ulcerative site of the posterior medial wound she was placed on oral doxycycline 100 mg twice daily x 10 days. Nargis applied to the ulcerative sites and dressed with dry sterile dressing. Tubigrip compression applied to the left lower extremity. senior care facility to change dressings daily. She is taking oral doxycycline and was instructed to finish the antibiotic to completion. Localized erythema has resolved. Due to returning eschar at the posterior medial ulceration I am prescribing application of Santyl to the wound site daily to aid in debridement. We will seek application of advanced wound care product. Encouraged pressure reduction of the site by ensuring the leg does not hang off the edge of the bed or have anything resting against the back of the leg this is including her contralateral heel as she often sleeps on her side. Encouraged continued protein intake and healthy amount of calories to aid in healing of her ulcerative sites. Signs and symptoms of infection were discussed today with the maintenance worker swimming pool and patient. She was instructed if she notices increasing redness about the wound site moving up the leg, any purulent drainage from the ulcer sites, increasing foul odor, or if she experiences fever greater than 101 degree, nausea, vomiting, or chills that these are signs of a progressing infection and she should report to the ED for IV antibiotics. The following work up and care recommendations were made: Dressing: Nargis dry sterile dressing, Tubigrip compression Wash: Tissue growth optimization: Offload: Offload left lower extremity at all times for pressure reduction about the ulcerative site Vascular: LEAS performed on 05/15/2022 demonstrate moderate arterial stenosis of the left lower extremity. Referral to vascular surgery placed with Dr. Easton Edema: Tubigrip compression and elevation of lower extremities at times of rest Pain: May take [id number] Tylenol extra strength for discomfort Host factors: PVD I answered all the patient's questions. To return to the wound healing center in 1 week or call sooner if the patient has any questions or concerns.
[2022-06-08 08:54] VITALS: BP 108/52; PULSE 102; RESP 16; TEMP 35.2
--- NOTE | 2022-06-08 09:23 | PCM.WC.PN ---
History of Present Illness Date of Service: 06/08/22 Chief Complaint: Left lower extremity wound x2 History of Wound: Patient is an 81-year-old female who was referred to the wound care center for left lower extremity ulceration x2. She is a resident of [facility] [address]. 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 Prior to being seen in the wound care center she was being treated by Anushka Dong CNP. She has undergone LEAS on 05/15/2022. She is not currently on antibiotics. Review of the notes state ulceration to the left anterior lower extremity is secondary to bumping her leg, while the posterior left lower extremity ulceration started as a eschar on the back of the leg and subsequently broke down. Patient states these wounds may have been present for a year, however her history seems poor. [employer] states wounds have been present for a few weeks. Subjective Subjective Patient is an 81-year-old female who presents to the wound care center for follow-up of to left lower extremity ulcerations.? Nursing facility has been changing the dressings daily. Nursing states they are using the Santyl daily and are worried about the depth. [employer] today is unsure of offloading at her facility.? She denies any constitutional symptoms today.? Denies any further complaints today. Objective Data Objective Data Vital Signs: Vital Signs Temp Pulse Resp BP O2 Del Method O2 Flow Rate 95.3 F L 102 H 16 108/52 L Nasal Cannula 2 06/08/22 08:54 06/08/22 08:54 06/08/22 08:54 06/08/22 08:54 06/08/22 08:54 05/25/22 09:10 Oxygen Flow Rate (L/min) 2 Oxygen Delivery Method Nasal Cannula Physical Exam Const alert, oriented x3 and no apparent distress General Appearance: cooperative HEENT normocephalic Eyes General Eye: normal appearance of both eyes Neck General: normal visual inspection Lymph Lymphatic: no lymphadenopathy noted and no lymphedema noted Resp normal respiratory effort Cardio regular rate and regular rhythm Extremity normal capillary refill, no calf tenderness and no pedal edema Extremity Narrative: DP and PT pulses nonpalpable and monophasic on Doppler. Capillary fill time is delayed to the digits. Normal temperature gradient with absent hair growth to the digits. +2 pitting edema about the lower extremity. No pedal edema is noted. Musculoskeletal: Muscle strength 5/5 and age-appropriate. Skin no rashes or lesions noted, skin turgor normal and no jaundice Wound Narrative: Left lower extremity: Anterior leg ulceration with mixed fibrogranular layer and friable skin about the border of the wound. Posterior medial ulceration demonstrates mixed fibrogranular layer about the outer margins with thick dense eschar at the central aspect of the wound with slight malodor secondary to eschar breakdown. Ulcerations demonstrate no purulent drainage, no palpable fluctuance/bogginess, no visible abscess formation, no lymphangitis. Neuro moves all extremities Debridement Note Debridement Note Wound debrided: Left posterior medial leg Laterality: Left Wound Grade/Stage: Pressure ulcer stage IV Type of Debridement: Excisional debridement Anesthesia Used: 5% Lidocaine Gel Depth: Down to and including healthy tissue, in the subcutaneous layer and to muscle Percentage of wound debrided: 100 Instrument Used: #15 blade, Forceps and - (Misonix) Tissue Removed: Fibrous, devitalized subcutaneous, biofilm, slough Severity: Necrosis of Muscle Amount of bleeding with debridement: Mild Bleeding Controlled with: Compression and gauze Patient tolerated procedure: Patient tolerated procedure well Post-Debridement Measurements and Additional Note: Post-Debridement Measurements/Treatment - Nurse 1 - General Ulcer Assessment Start: 05/25/22 09:10 Freq: Status: Active Protocol: .LOWEXT Activity Type Activity Date Activity User E-sign Co-sign Detail Recorded Client Recorded Date Recorded By Document 05/25/22 09:10 [id number] 05/25/22 09:21 Document 06/01/22 08:34 [id number] 06/01/22 08:39 Document 06/08/22 08:54 [facility] [id number] 06/08/22 08:58 [facility] 05/25/22 06/01/22 06/08/22 09:10 08:34 08:54 - Today's Visit Information Type of service Initial Visit Follow-up Visit Follow-up Visit (Physician/MILITARY COMMUNICATIONS SPECIALIST (Physician/MILITARY COMMUNICATIONS SPECIALIST ) ) Arrival Mode Wheelchair Wheelchair Wheelchair Transfer Assistance Other Manual Other Transfer Assist (Other) 2 stand by 2 Accompanied by nurse caregiver Patient Identification Verified (Name & Yes Yes Yes ) Patient Requires Transmission-Based No No No Precautions Vital Signs Temperature (97.8 F-99.1 F) 95.9 F L 98.3 F 95.3 F L Temperature Source Temporal Temporal Temporal Pulse Rate (60-100) 99 99 102 H Pulse Location Monitor Monitor Monitor Respiratory Rate (12-18) 16 16 16 Respiratory rate source Observation Observation Observation Oxygen Delivery Method Nasal Cannula Nasal Cannula O2 L/MIN (L/min) 2 Blood Pressure (90/60-120/80) 105/60 96/54 L 108/52 L Blood Pressure Mean (mm Hg) 75 68 70 Source Monitor Monitor Monitor Position Sitting Semi-Fowlers Sitting Blood Pressure Location Right Arm Right Arm Right Arm History Since Last Visit- (Skip if this is Patient's initial visit) Have you changed medications since your No No last visit? Any new allergies or adverse reactions No No Had a fall/change in ADL's that may No No increase risk of falls Signs or symptoms of abuse and/or No No neglect since last visit Have you been in the hospital since your No No last visit? Has dressing in place as prescribed Yes Yes Has compression in place as prescribed Yes Yes Has offloadiing in place as prescribed N/A N/A Experienced any changes in pain level or No No management Left Footwear Regular Shoe Slipper Right Footwear Regular Shoe Slipper Pain Scale: 0-10 Numeric Is Patient Pain Free? Yes Yes Yes Communication Assessment Preferred language Haitian Food Analyst Required No Right Hearing Abillity Hard of Hearing Left Hearing Abillity Hard of Hearing Visual Assistive Devices Glasses Teaching Assessment Preferences Verbal,Written, Audio/Visual, Demonstration Barriers to Learning None Anxiety Level Calm Cooperation Cooperative - Nurse 1 - General Ulcer Measurement Start: 05/25/22 09:10 Freq: Status: Active Protocol: Activity Type Activity Date Activity User E-sign Co-sign Detail Recorded Client Recorded Date Recorded By Document 05/25/22 09:10 [id number] 05/25/22 09:21 Document 06/01/22 08:34 [id number] 06/01/22 08:39 Document 06/08/22 08:54 [facility] [id number] 06/08/22 08:58 [facility] 05/25/22 06/01/22 06/08/22 09:10 08:34 08:54 Wound Center Nurse 1 #2- L MED CALF -Combined with other wound No No No -Current Size (cm) - Length 5.7 5.6 6.8 -Current Size (cm) - Width 3 2.8 2.6 -Current Size (cm) - Depth 0.3 0.9 2.3 -Total Square Cm 17.1 15.68 17.68 -Date of Last Picture (Recall this 05/25/22 06/08/22 field) -Photo Taken Yes Yes Yes -Epithelialization None Present Small 1-33% None Present -Tunneling No No No -Undermining/Tunneling No No No -Circular Undermining No No No -Exudate Amt Medium Medium Large -Exudate Type Serosanguineous Serosanguineous Serosanguineous -Wound Margin Distinct, Flat & Intact Distinct, Outline Outline Attached Attached -Granulation Amt None Present (0 None Present (0 None Present (0 %) %) %) -Slough/Fibrin Yes Yes Yes -Necrosis Amt Large (67-100%) Large (67-100%) Large (67-100%) -Necrotic Tissue Type Eschar Adherent Slough Eschar -Structure Exposed N/A -Texture (Senia-wound Skin Appearance) Assessed, Assessed Assessed, Scarring Localized Edema ,Scarring -Moisture (Senia-wound Skin Appearance) Assessed Assessed,Dry/ Assessed Scaly -Color (Senia-wound Skin Appearance) Assessed, Assessed, Assessed, Erythema Erythema Erythema -Temperature (Senia-wound Skin No Abnormality No Abnormality No Abnormality Appearance) (Pt Warm) (Pt Warm) (Pt Warm) -Tenderness on Palpation (Senia-wound No No No Skin Appearance) -Ulcer Cleansing Rinsed/ Wound Cleanser Soap and Water Irrigated with Saline -Foul Odor after Cleansing No No No -Anesthetic Used 5% Lidocaine 5% Lidocaine 5% Lidocaine Gel Gel Gel #1- L GARDNER -Combined with other wound No No No -Current Size (cm) - Length 0.7 0.5 0.5 -Current Size (cm) - Width 0.8 0.5 0.4 -Current Size (cm) - Depth 0.1 0.1 0.1 -Total Square Cm 0.56 0.25 0.20 -Date of Last Picture (Recall this 05/25/22 06/08/22 field) -Photo Taken Yes Yes Yes -Epithelialization None Present None Present None Present -Tunneling No No No -Undermining/Tunneling No No No -Circular Undermining No No No -Exudate Amt Medium None Present None Present -Exudate Type Serosanguineous -Wound Margin Distinct, Fibrotic Scar, Distinct, Outline Thickened Scar Outline Attached Attached -Granulation Amt Small (1-33%) None Present (0 None Present (0 %) %) -Granulation Quality Red -Slough/Fibrin Yes Yes Yes -Necrosis Amt Large (67-100%) Large (67-100%) Large (67-100%) -Necrotic Tissue Type Adherent Slough Adherent Slough Eschar -Structure Exposed N/A -Texture (Senia-wound Skin Appearance) Assessed, Assessed, Assessed, Scarring Localized Edema Scarring -Moisture (Senia-wound Skin Appearance) Assessed Assessed,Dry/ Assessed,Dry/ Scaly Scaly -Color (Senia-wound Skin Appearance) Assessed, Assessed Assessed Erythema -Temperature (Senia-wound Skin No Abnormality No Abnormality No Abnormality Appearance) (Pt Warm) (Pt Warm) (Pt Warm) -Tenderness on Palpation (Senia-wound Yes No No Skin Appearance) -Ulcer Cleansing Rinsed/ Rinsed/ Soap and Water Irrigated with Irrigated with Saline Saline -Foul Odor after Cleansing No No No -Anesthetic Used 5% Lidocaine 5% Lidocaine 5% Lidocaine Gel Gel Gel Lower Limb Edema Present Yes Yes Right Calf (cm) 27.6 Right Ankle (cm) 21 Left Calf (cm) 28.5 26.7 28.5 Left Ankle (cm) 23.3 22.3 22.6 WC - Nurse 2 - General Ulcer CM Notes Start: 05/25/22 09:10 Freq: Status: Active Protocol: Activity Type Activity Date Activity User E-sign Co-sign Detail Recorded Client Recorded Date Recorded By Document 05/25/22 09:38 PL [id number] 05/25/22 09:41 PL Document 05/25/22 09:47 PL [id number] 05/25/22 10:14 PL Document 06/01/22 09:39 PL [id number] 06/01/22 09:42 PL 05/25/22 05/25/22 06/01/22 09:38 09:47 09:39 Wound Center Nurse 2 #2- L MED CALF -Time 09:50 09:30 -Correct Patient Yes Yes -Correct Side, Site, Position Yes Yes -Correct Procedure Yes Yes -Procedure Performed Yes Yes -Type of Procedure Debridement Debridement -Clinical Debridement Subcutaneous Subcutaneous -Tissue Removed Epidermis, Subcutaneous Subcutaneous -Post Debridement (cm) - Length 0.5 5.6 -Post Debridement (cm) - Width 0.6 3.0 -Post Debridement (cm) - Depth 0.1 0.1 -Total Square (Post) (cm) 0.30 16.80 -Area of Debridement (cm) - Length 0.5 5.6 -Area of Debridement (cm) - Width 0.6 3.0 -Total Square (Area) (cm) 0.30 16.80 -Tunneling No No -Undermining/Tunneling No No -Circular Undermining No No -Wound/Ulcer Outcome Not Healed Not Healed -Ulcer Cleansing Rinsed/ Irrigated with Saline -Foul Odor after Cleansing No -Bioengineered Tissue No -Bleeding Controlled with Pressure Pressure -Treatment Response Procedure Procedure Tolerated Well Tolerated Well -Debridement - Subq, 1st 20sq cm No Yes #1- L GARDNER -Time 09:30 -Correct Patient Yes Yes -Correct Side, Site, Position Yes Yes -Correct Procedure Yes Yes -Procedure Performed Yes Yes -Type of Procedure Debridement Debridement -Clinical Debridement Subcutaneous Subcutaneous -Tissue Removed Subcutaneous Subcutaneous -Post Debridement (cm) - Length 0.5 1.0 -Post Debridement (cm) - Width 0.5 0.4 -Post Debridement (cm) - Depth 0.1 0.1 -Total Square (Post) (cm) 0.25 0.40 -Area of Debridement (cm) - Length 0.5 1.0 -Area of Debridement (cm) - Width 0.5 0.4 -Total Square (Area) (cm) 0.25 0.40 -Tunneling No No -Undermining/Tunneling No No -Circular Undermining No No -Wound/Ulcer Outcome Not Healed Not Healed -Ulcer Cleansing Rinsed/ Rinsed/ Irrigated with Irrigated with Saline Saline -Foul Odor after Cleansing No No -Bioengineered Tissue No No -Bleeding Controlled with Pressure Pressure -Treatment Response Procedure Procedure Tolerated Well Tolerated Well -Debridement - Subq, 1st 20sq cm Yes No Pain Scale: 0-10 Numeric Is Patient Pain Free? Yes Yes Yes WC - Nurse 3 - General Ulcer D/C NN Start: 05/25/22 09:10 Freq: Status: Active Protocol: Activity Type Activity Date Activity User E-sign Co-sign Detail Recorded Client Recorded Date Recorded By Document 05/25/22 10:20 [facility] [id number] 05/25/22 10:21 [facility] Document 06/01/22 09:55 RB [id number] 06/01/22 09:56 RB 05/25/22 06/01/22 10:20 09:55 Wound Care Center Nurse 3 #2- L MED CALF -Ulcer Cleansing Rinsed/ Irrigated with Saline -Foul Odor after Cleansing No -Primary Dressing Applied Promogran Nargis Matter -Other Dressing ABD hydrogel -Primary Dressing Covered/Secured with Dry Gauze & Dry Gauze,Dry Roll Gauze, Gauze & Roll Secured with Gauze,Secured Tape with Tape -Promogran Nargis Matter 1 #1- L GARDNER -Ulcer Cleansing Rinsed/ Irrigated with Saline -Foul Odor after Cleansing No -Primary Dressing Applied Promogran Promogran Nargis Matter Nargis Matter -Primary Dressing Covered/Secured with Dry Gauze & Dry Gauze,Dry Roll Gauze, Gauze & Roll Secured with Gauze,Secured Tape with Tape -Promogran Nargis Matter 0 1 Left -Tubular Bandage Single Layer -Size of Tubigrip Used Size C -Size C ($) 1 Treatment Response Procedure Procedure Tolerated Well Tolerated Well Pain Scale: 0-10 Numeric Is Patient Pain Free? Yes Yes WC - Visit Discharge Discharge Condition Stable Stable Ambulatory Status Wheelchair Wheelchair Transportation ECF Private Auto Medication Reconcilliation completed & No provided to patient/care provider Clinical Summary of Care Provided Yes Facility Type [employer] Condition[employer] Install[facility] Supervisor Care Facility Assessment/Plan Assessment/Plan (1) CHF (congestive heart failure), NYHA class III: CODE(S): I50.9 - Heart failure, unspecified (2) Essential hypertension: CODE(S): I10 - Essential (primary) hypertension (3) Hyperlipidemia: CODE(S): E78.5 - Hyperlipidemia, unspecified (4) CKD (chronic kidney disease) stage 3, GFR 30-59 ml/min: CODE(S): N18.30 - Chronic kidney disease, stage 3 unspecified (5) Difficulty in walking, not elsewhere classified: CODE(S): R26.2 - Difficulty in walking, not elsewhere classified (6) Unspecified severe protein-calorie malnutrition: CODE(S): E43 - Unspecified severe protein-calorie malnutrition (7) Atherosclerosis of tolowa dee-ni' arteries of left leg with ulceration of calf: CODE(S): I70.242 - Atherosclerosis of tolowa dee-ni' arteries of left leg with ulceration of calf (8) Non-pressure chronic ulcer of left calf with fat layer exposed: CODE(S): L97.222 - Non-pressure chronic ulcer of left calf with fat layer exposed (9) PVD (peripheral vascular disease): CODE(S): I73.9 - Peripheral vascular disease, unspecified PLAN: Plan Patient seen and evaluated She did undergo LEAS on 05/15/2022. Doppler evaluation of bilateral lower extremity arteries was obtained and waveforms were noted to be multiphasic and monophasic continuously bilaterally. Velocities are as follows: Right: Common femoral artery 114; SFA proximal, mid, and distal 98, 98, and 45; popliteal artery 38; posterior tibial artery 12 mono; DP not visualized. Left: Common femoral artery 40 to continuity/parvus; SFA proximal, mid, distal 39, 24, 22 mono continuous/parvus; popliteal artery 19 mono continuous/parvus; posterior tibial artery not visualized; dorsalis pedis artery not visualized. Conclusion: Nonvisualization of bilateral dorsalis pedis and right posterior tibial does not exclude occlusion. There is greater than 50% stenosis throughout the entire left lower extremity and there is left aortoiliac disease. She was referred to vascular surgeon, Dr. Easton for further evaluation. She needs to follow with vascular prior to further debridement. She has 2 left lower extremity ulcerations: #1 anterior leg ulceration with mixed fibrogranular layer and friable skin about the border of the wound measures 0.9 cm x 0.4 cm x 0.1 cm. No signs of infection. #2 posterior medial ulceration demonstrates mixed fibrogranular layer about the outer margins with thick dense eschar at the central aspect of the wound with slight malodor secondary to eschar breakdown and involvement of deep muscle, ulceration measures 6.4 cm x 3.0 cm x 1.7 cm. Ulcerations underwent debridement as noted in the clinical panel above. She has finished her oral antibiotic, Doxycycline. Santyl applied to anterior leg and Dakin's to posterior leg wound and dressed with dry sterile dressing. Tubigrip compression applied to the left lower extremity. [facility] facility to change dressings daily. She has been approved for application of advanced wound care product, will hold from placement at current time. Discussed with biostatistics manager taking patient to the OR for debridement with application of advanced wound care product following her vascular referral. Encouraged pressure reduction of the site by ensuring the leg does not hang off the edge of the bed or have anything resting against the back of the leg this is including her contralateral heel as she often sleeps on her side. Encouraged continued protein intake and healthy amount of calories to aid in healing of her ulcerative sites. Signs and symptoms of infection were discussed today with the biostatistics manager and patient. She was instructed if she notices increasing redness about the wound site moving up the leg, any purulent drainage from the ulcer sites, increasing foul odor, or if she experiences fever greater than 101 degree, nausea, vomiting, or chills that these are signs of a progressing infection and she should report to the ED for IV antibiotics. The following work up and care recommendations were made: Dressing: Santyl and dry sterile dressing anterior leg, Dakin's wet to dry posterior, Tubigrip compression Wash: Dakin's Tissue growth optimization: Santyl Offload: Offload left lower extremity at all times for pressure reduction about the ulcerative site Vascular: LEAS performed on 05/15/2022 demonstrate moderate arterial stenosis of the left lower extremity. Referral to vascular surgery placed with Dr. Easton Edema: Tubigrip compression and elevation of lower extremities at times of rest Pain: May take [id number] Tylenol extra strength for discomfort Host factors: PVD I answered all the patient's questions. To return to the wound healing center in 1 week or call sooner if the patient has any questions or concerns.
== END 2022-06-18 23:59 | disposition home or self-care (01) ==
LOC: WC 08:30
PROVIDERS: PCP Internal Medicine; Referring Provider Internal Medicine; Visit Provider Student in an Organized Health Care Education/Training Program
DX: L97.823 Non-pressure chronic ulcer of other part of left lower leg with necrosis of muscle (principal); L97.222 Non-pressure chronic ulcer of left calf with fat layer exposed; E43 Unspecified severe protein-calorie malnutrition; J44.9 Chronic obstructive pulmonary disease, unspecified; I13.0 Hypertensive heart and chronic kidney disease with heart failure and stage 1 through stage 4 chronic kidney disease, or unspecified chronic kidney disease; I50.9 Heart failure, unspecified; I73.9 Peripheral vascular disease, unspecified; N18.30 Chronic kidney disease, stage 3 unspecified; E78.5 Hyperlipidemia, unspecified; I65.22 Occlusion and stenosis of left carotid artery; R26.2 Difficulty in walking, not elsewhere classified; Z87.891 Personal history of nicotine dependence
CPT/HCPCS: 11042; 99213; G0463

== ENCOUNTER → 2022-06-16 | Outpatient (CLI) | payer MEDICARE, MEDICAID, SELFPAY ==
--- NOTE | 2022-06-16 10:01 | ART_ITS ---
Reason For Study: LLE Ulcer Procedure A bilateral lower extremity continuous wave Doppler with analog waveform analysis,segmental pressures,and ankle brachial indexes without exercise. Left Segmental Pressures Left brachial= 95mmHg. Left thigh = 46mmHg. Left calf = 48mmHg. Left posterior tibial artery = 43mmHg. Left dorsalis pedis artery = 37mmHg. The left posterior tibial artery waveforms are monophasic. The left dorsalis pedis waveforms are monophasic. Right Segmental Pressures Right brachial= 99mmHg. Right thigh = 100mmHg. Right calf = 79mmHg. Right posterior tibial artery = 90mmHg. Right dorsalis pedis artery = 89mmHg. The right posterior tibial artery waveforms are triphasic. The right dorsalis pedis waveforms are biphasic. Indices The right ankle brachial index by the posterior tibial artery is 0.91. The right ankle brachial index by the dorsalis pedis is 0.90. The left ankle brachial index by the posterior tibial artery is 0.43. The left ankle brachial index by the dorsalis pedis is 0.37. VL/Lower Ext Art Exam w/o Exercis Interpretation Summary Right LCO 0.91, mild arterial insufficiency. Doppler/PVR waveforms and segmenta l pressures reveal distal SFA/popliteal disease. Left LOC 0.43, severe arterial insufficiency. Doppler/PVR waveforms and segment al pressures reveal [id number] femoral disease Ordering Physician: Lulu Red Referring Physician: Yonatan Easton MD Performed By: Christiano Menjivar, RVT
== END | disposition home or self-care (01) ==
LOC: CVS 10:01
PROVIDERS: PCP Internal Medicine; Referring Provider Physician Assistant; Visit Provider Physician Assistant
DX: I73.9 Peripheral vascular disease, unspecified (principal)
CPT/HCPCS: 93923

== ENCOUNTER 2022-07-13 08:30 | Outpatient (RCR) | payer MEDICARE, SELFPAY ==
[2022-06-19 00:11] VITALS: BP 108/52; PULSE 102; RESP 16; TEMP 35.2
[2022-06-22 08:21] VITALS: BP 113/86; PULSE 104; RESP 20; TEMP 36.1
--- NOTE | 2022-06-22 08:36 | PCM.WC.PN ---
History of Present Illness Date of Service: 06/22/22 Chief Complaint: Left lower extremity wound x2 History of Wound: Patient is an 81-year-old female who was referred to the wound care center for left lower extremity ulceration x2. She is a resident of [facility]. She has history of PVD, atherosclerosis of [place] arteries of the leg, COPD, dementia, hypertension, occlusion and stenosis of the left carotid artery, and nonhealing ulceration to the left lower leg. Prior to being seen in the wound care center she was being treated by Anushka Dong CNP. She has undergone LEAS on 05/15/2022. She is not currently on antibiotics. Review of the notes state ulceration to the left anterior lower extremity is secondary to bumping her leg, while the posterior left lower extremity ulceration started as a eschar on the back of the leg and subsequently broke down. Patient states these wounds may have been present for a year, however her history seems poor. Press Tender states wounds have been present for a few weeks. Subjective Subjective Patient is an 81-year-old female who presents to the wound care center for follow-up of to left lower extremity ulcerations.? Nursing facility has been changing the dressings daily. They are changing dressings daily with Dakin's wet-to-dry. She denies any constitutional symptoms today.? Denies any further complaints today. Objective Data Objective Data Vital Signs: Vital Signs Temp Pulse Resp BP O2 Flow Rate 97.0 F L 104 H 20 H 113/86 H 2 06/22/22 08:21 06/22/22 08:21 06/22/22 08:21 06/22/22 08:21 06/19/22 00:11 Oxygen Flow Rate (L/min) 2 Physical Exam Const alert, oriented x3 and no apparent distress General Appearance: cooperative HEENT normocephalic Eyes General Eye: normal appearance of both eyes Neck General: normal visual inspection Lymph Lymphatic: no lymphadenopathy noted and no lymphedema noted Resp normal respiratory effort Cardio regular rate and regular rhythm Extremity no joint enlargement and no pedal edema Extremity Narrative: DP and PT pulses nonpalpable and monophasic on Doppler.? Capillary fill time is delayed to the digits.? Normal temperature gradient with absent hair growth to the digits.? +2 pitting edema about the lower extremity.? No pedal edema is noted. Musculoskeletal: Muscle strength 5/5 and age-appropriate. Skin no rashes or lesions noted, skin turgor normal and no jaundice Wound Narrative: Left lower extremity: Anterior leg ulceration with mixed fibrogranular layer and friable skin about the border of the wound.? Posterior medial ulceration demonstrates mixed fibrogranular layer about the outer margins with thick dense eschar at the central aspect of the wound with slight malodor secondary to eschar breakdown.? Ulcerations demonstrate no purulent drainage, no palpable fluctuance/bogginess, no visible abscess formation, no lymphangitis. Neuro moves all extremities Debridement Note Debridement Note Wound debrided: Left posterior leg Laterality: Left Wound Grade/Stage: Pressure wound stage IV Type of Debridement: Excisional debridement Anesthesia Used: 5% Lidocaine Gel Depth: Down to and including healthy tissue, in the subcutaneous layer and to muscle Percentage of wound debrided: 100 Instrument Used: 3mm curette Tissue Removed: Fibrous, devitalized subcutaneous, biofilm, slough Severity: Fat Layer Exposed Amount of bleeding with debridement: Mild Bleeding Controlled with: Compression and gauze Patient tolerated procedure: Patient tolerated procedure well Post-Debridement Measurements and Additional Note: Post-Debridement Measurements/Treatment - Nurse 1 - General Ulcer Assessment Start: 06/22/22 08:21 Freq: Status: Active Protocol: KENDALL Activity Type Activity Date Activity User E-sign Co-sign Detail Recorded Client Recorded Date Recorded By Document 06/22/22 08:21 [email or web address] [id number] 06/22/22 08:30 PL 06/22/22 08:21 - Today's Visit Information Type of service Follow-up Visit (Physician/AIRLINE MANAGERIAL SUPERVISOR ) Arrival Mode Wheelchair Transfer Assistance Manual Patient Identification Verified (Name & Yes ) Patient Requires Transmission-Based No Precautions Safety Precautions NA Vital Signs Temperature (97.8 F-99.1 F) 97.0 F L Temperature Source Temporal Pulse Rate (60-100) 104 H Respiratory Rate (12-18) 20 H Blood Pressure (90/60-120/80) 113/86 H Blood Pressure Mean (mm Hg) 95 History Since Last Visit- (Skip if this is Patient's initial visit) Have you changed medications since your No last visit? Any new allergies or adverse reactions No Had a fall/change in ADL's that may No increase risk of falls Signs or symptoms of abuse and/or No neglect since last visit Have you been in the hospital since your No last visit? Has dressing in place as prescribed Yes Has compression in place as prescribed Yes Has offloadiing in place as prescribed N/A Experienced any changes in pain level or No management Pain Scale: 0-10 Numeric Is Patient Pain Free? Yes WC - Nurse 1 - General Ulcer Measurement Start: 06/22/22 08:21 Freq: Status: Active Protocol: Activity Type Activity Date Activity User E-sign Co-sign Detail Recorded Client Recorded Date Recorded By Document 06/22/22 08:21 PL [id number] 06/22/22 08:30 PL 06/22/22 08:21 Wound Center Nurse 1 #2- L MED CALF -Current Size (cm) - Length 5.0 -Current Size (cm) - Width 2.5 -Current Size (cm) - Depth 0.5 -Total Square Cm 12.50 -Photo Taken No -Epithelialization Medium 34-66% -Tunneling No -Undermining/Tunneling No -Circular Undermining No -Granulation Amt Small (1-33%) -Granulation Quality [place] -Slough/Fibrin Yes -Necrosis Amt Large (67-100%) -Necrotic Tissue Type Adherent Slough -Texture (Senia-wound Skin Appearance) No Abnormality -Moisture (Senia-wound Skin Appearance) No Abnormality -Color (Senia-wound Skin Appearance) No Abnormality -Temperature (Senia-wound Skin No Abnormality Appearance) (Pt Warm) -Tenderness on Palpation (Senia-wound No Skin Appearance) -Ulcer Cleansing Rinsed/ Irrigated with Saline -Anesthetic Used 5% Lidocaine Gel #1- L GARD[place] -Current Size (cm) - Length 0.1 -Current Size (cm) - Width 0.1 -Current Size (cm) - Depth 0.1 -Total Square Cm 0.01 Assessment/Plan Assessment/Plan (1) Non-pressure chronic ulcer of left calf with fat layer exposed: CODE(S): L97.222 - Non-pressure chronic ulcer of left calf with fat layer exposed (2) PVD (peripheral vascular disease): CODE(S): I73.9 - Peripheral vascular disease, unspecified (3) Atherosclerosis of [place] arteries of left leg with ulceration of calf: CODE(S): I70.242 - Atherosclerosis of [place] arteries of left leg with ulceration of calf (4) Unspecified severe protein-calorie malnutrition: CODE(S): E43 - Unspecified severe protein-calorie malnutrition (5) Difficulty in walking, not elsewhere classified: CODE(S): R26.2 - Difficulty in walking, not elsewhere classified (6) Hyperlipidemia: CODE(S): E78.5 - Hyperlipidemia, unspecified (7) Essential hypertension: CODE(S): I10 - Essential (primary) hypertension (8) 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 Doppler evaluation of bilateral lower extremity arteries was obtained and waveforms were noted to be multiphasic and monophasic continuously bilaterally.? Velocities are as follows: Right: Common femoral artery 114; SFA proximal, mid, and distal 98, 98, and 45; popliteal artery 38; posterior tibial artery 12 mono; DP not visualized.? Left: Common femoral artery 40 to continuity/parvus; SFA proximal, mid, distal 39, 24, 22 mono continuous/parvus; popliteal artery 19 mono continuous/parvus; posterior tibial artery not visualized; dorsalis pedis artery not visualized.? Conclusion: Nonvisualization of bilateral dorsalis pedis and right posterior tibial does not exclude occlusion.? There is greater than 50% stenosis throughout the entire left lower extremity and there is left aortoiliac disease. She was referred to vascular surgeon, Dr. Easton for further evaluation. Dr. Easton performed updated LEAS on 06/19/2022 which demonstrated right LOC 0.91 mild arterial insufficiency, Doppler/PVR waveforms and segmental pressures demonstrate distal SFA/popliteal disease. Left LOC 0.43 severe arterial insufficiency, Doppler/PVR waveforms and segmental pressures demonstrate aortoiliac and proximal femoral disease. She has 2 left lower extremity ulcerations: #1 anterior leg ulceration has healed today. No signs of infection.?#2 posterior medial ulceration demonstrates mixed fibrogranular layer and involvement of deep muscle, ulceration measures 5.6 cm x 2.8 cm x 0.5 cm.? Ulcerations underwent debridement as noted in the clinical panel above. She has finished her oral antibiotic, Doxycycline.? Dakin's to posterior leg wound and dressed with dry sterile dressing.? Tubigrip compression applied to the left lower extremity.? nursing home facility to change dressings daily. Her ulcerations demonstrate improvement in healing from previous visit. She has been approved for application of advanced wound care product, will hold from placement at current time.? Discussed with part maker taking patient to the OR for debridement with application of advanced wound care product following her vascular referral if she fails to progress in healing. At this time she is healing well and I will consider application of the advanced wound care product at her next visit in the wound care center. Encouraged pressure reduction of the site by ensuring the leg does not hang off the edge of the bed or have anything resting against the back of the leg this is including her contralateral heel as she often sleeps on her side.? Encouraged continued protein intake and healthy amount of calories to aid in healing of her ulcerative sites. Signs and symptoms of infection were discussed today with the part maker and patient.? She was instructed if she notices increasing redness about the wound site moving up the leg, any purulent drainage from the ulcer sites, increasing foul odor, or if she experiences fever greater than 101 degree, nausea, vomiting, or chills that these are signs of a progressing infection and she should report to the ED for IV antibiotics. The following work up and care recommendations were made: Dressing: Dakin's wet to dry posterior, Tubigrip compression Wash: Dakin's Tissue growth optimization: None Offload: Offload left lower extremity at all times for pressure reduction about the ulcerative site Vascular: LEAS performed on 05/15/2022 demonstrate moderate arterial stenosis of the left lower extremity. Updated LEAS performed 06/19/2022 demonstrates severe arterial insufficiency of the left lower extremity. She is currently following with vascular surgery Dr. Easton Edema: Tubigrip compression and elevation of lower extremities at times of rest Pain: May take [id number] Tylenol extra strength for discomfort Host factors: PVD ? I answered all the patient's questions.? To return to the wound healing center in 1 week or call sooner if the patient has any questions or concerns.
--- NOTE | 2022-07-06 08:16 | PCM.WC.PN ---
History of Present Illness Chief Complaint: Left lower extremity wound x2 History of Wound: Patient is an 81-year-old female who was referred to the wound care center for left lower extremity ulceration x2. She is a resident of [facility]. 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 Prior to being seen in the wound care center she was being treated by Anushka Dong CNP. She has undergone LEAS on 05/15/2022. She is not currently on antibiotics. Review of the notes state ulceration to the left anterior lower extremity is secondary to bumping her leg, while the posterior left lower extremity ulceration started as a eschar on the back of the leg and subsequently broke down. Patient states these wounds may have been present for a year, however her history seems poor. Explosives Operator states wounds have been present for a few weeks. Subjective Subjective Patient is an 81-year-old female who presents to the wound care center for follow-up of to left lower extremity ulcerations.? Nursing facility has been changing the dressings daily.? They are changing dressings daily with Dakin's wet-to-dry.? She denies any constitutional symptoms today.? Denies any further complaints today. Objective Data Objective Data Vital Signs: Vital Signs Temp Pulse Resp BP O2 Flow Rate 97.0 F L 104 H 20 H 113/86 H 2 06/22/22 08:21 06/22/22 08:21 06/22/22 08:21 06/22/22 08:21 06/19/22 00:11 Oxygen Flow Rate (L/min) 2 Physical Exam Const alert, oriented x3 and no apparent distress General Appearance: cooperative HEENT normocephalic Eyes General Eye: normal appearance of both eyes Neck General: normal visual inspection Lymph Lymphatic: no lymphadenopathy noted and no lymphedema noted Resp normal respiratory effort Cardio regular rate and regular rhythm Extremity no joint enlargement and no pedal edema Extremity Narrative: DP and PT pulses nonpalpable and monophasic on Doppler.? Capillary fill time is delayed to the digits.? Normal temperature gradient with absent hair growth to the digits.? +2 pitting edema about the lower extremity.? No pedal edema is noted. Musculoskeletal: Muscle strength 5/5 and age-appropriate. Skin no rashes or lesions noted, skin turgor normal and no jaundice Wound Narrative: Left lower extremity: Anterior leg ulceration with mixed fibrogranular layer and friable skin about the border of the wound.? Posterior medial ulceration demonstrates mixed fibrogranular layer about the outer margins with thick dense eschar at the central aspect of the wound with slight malodor secondary to eschar breakdown.? Ulcerations demonstrate no purulent drainage, no palpable fluctuance/bogginess, no visible abscess formation, no lymphangitis. Neuro moves all extremities Debridement Note Debridement Note Post-Debridement Measurements and Additional Note: Post-Debridement Measurements/Treatment [id number] - Nurse 1 - General Ulcer Assessment Start: 06/22/22 08:21 Freq: Status: Active Protocol: KENDALL Activity Type Activity Date Activity User E-sign Co-sign Detail Recorded Client Recorded Date Recorded By Document 06/22/22 08:21 PL [id number] 06/22/22 08:30 PL 06/22/22 08:21 WC - Today's Visit Information Type of service Follow-up Visit (Physician/OFFICE MACHINE SERVICER ) Arrival Mode Wheelchair Transfer Assistance Manual Patient Identification Verified (Name & Yes ) Patient Requires Transmission-Based No Precautions Safety Precautions NA Vital Signs Temperature (97.8 F-99.1 F) 97.0 F L Temperature Source Temporal Pulse Rate (60-100) 104 H Respiratory Rate (12-18) 20 H Blood Pressure (90/60-120/80) 113/86 H Blood Pressure Mean (mm Hg) 95 History Since Last Visit- (Skip if this is Patient's initial visit) Have you changed medications since your No last visit? Any new allergies or adverse reactions No Had a fall/change in ADL's that may No increase risk of falls Signs or symptoms of abuse and/or No neglect since last visit Have you been in the hospital since your No last visit? Has dressing in place as prescribed Yes Has compression in place as prescribed Yes Has offloadiing in place as prescribed N/A Experienced any changes in pain level or No management Pain Scale: 0-10 Numeric Is Patient Pain Free? Yes - Nurse 1 - General Ulcer Measurement Start: 06/22/22 08:21 Freq: Status: Active Protocol: Activity Type Activity Date Activity User E-sign Co-sign Detail Recorded Client Recorded Date Recorded By Document 06/22/22 08:21 PL [id number] 06/22/22 08:30 PL 06/22/22 08:21 Wound Center Nurse 1 #1- L [place] -Current Size (cm) - Length 0.1 -Current Size (cm) - Width 0.1 -Current Size (cm) - Depth 0.1 -Total Square Cm 0.01 #2- L MED CALF -Current Size (cm) - Length 5.0 -Current Size (cm) - Width 2.5 -Current Size (cm) - Depth 0.5 -Total Square Cm 12.50 -Photo Taken No -Epithelialization Medium 34-66% -Tunneling No -Undermining/Tunneling No -Circular Undermining No -Granulation Amt Small (1-33%) -Granulation Quality [place] -Slough/Fibrin Yes -Necrosis Amt Large (67-100%) -Necrotic Tissue Type Adherent Slough -Texture (Senia-wound Skin Appearance) No Abnormality -Moisture (Senia-wound Skin Appearance) No Abnormality -Color (Senia-wound Skin Appearance) No Abnormality -Temperature (Senia-wound Skin No Abnormality Appearance) (Pt Warm) -Tenderness on Palpation (Senia-wound No Skin Appearance) -Ulcer Cleansing Rinsed/ Irrigated with Saline -Anesthetic Used 5% Lidocaine Gel WC - Nurse 2 - General Ulcer CM Notes Start: 06/22/22 08:21 Freq: Status: Active Protocol: Activity Type Activity Date Activity User E-sign Co-sign Detail Recorded Client Recorded Date Recorded By Document 06/22/22 08:49 [id number] 06/22/22 08:53 06/22/22 08:49 Wound Center Nurse 2 #1- L [place] -Correct Patient No -Correct Side, Site, Position No -Correct Procedure No -Procedure Performed No -Post Debridement (cm) - Length 0 -Post Debridement (cm) - Width 0 -Post Debridement (cm) - Depth 0 -Total Square (Post) (cm) 0 -Area of Debridement (cm) - Length 0 -Area of Debridement (cm) - Width 0 -Total Square (Area) (cm) 0 -Wound/Ulcer Outcome Healed- Epithelialized #2- L MED CALF -Time 08:49 -Correct Patient Yes -Correct Side, Site, Position Yes -Correct Procedure Yes -Procedure Performed Yes -Type of Procedure Debridement -Clinical Debridement Muscle / Fascia -Tissue Removed Muscle,Fascia -Post Debridement (cm) - Length 5.6 -Post Debridement (cm) - Width 2.8 -Post Debridement (cm) - Depth 0.5 -Total Square (Post) (cm) 15.68 -Area of Debridement (cm) - Length 5.6 -Area of Debridement (cm) - Width 2.8 -Total Square (Area) (cm) 15.68 -Tunneling No -Undermining/Tunneling No -Circular Undermining No -Wound/Ulcer Outcome Not Healed -Ulcer Cleansing Rinsed/ Irrigated with Saline -Foul Odor after Cleansing No -Bioengineered Tissue No -Bleeding Controlled with Pressure -Treatment Response Procedure Tolerated Well -Offloading No -Debridement - Subq, 1st 20sq cm No -Debridement - Muscle / Fascia, 1st Yes 20sq cm Pain Scale: 0-10 Numeric Is Patient Pain Free? Yes - Nurse 3 - General Ulcer D/C NN Start: 06/22/22 08:21 Freq: Status: Active Protocol: Activity Type Activity Date Activity User E-sign Co-sign Detail Recorded Client Recorded Date Recorded By Document 06/22/22 09:41 [email or web address] [id number] 06/22/22 09:42 PL 06/22/22 09:41 Wound Care Center Nurse 3 #2- L MED CALF -Ulcer Cleansing Rinsed/ Irrigated with Saline -Foul Odor after Cleansing No -Other Dressing Dakin gauze -Primary Dressing Covered/Secured with Dry Gauze & Roll Gauze, Secured with Tape Pain Scale: 0-10 Numeric Is Patient Pain Free? Yes - Visit Discharge Discharge Condition Stable Ambulatory Status Wheelchair Transportation Private Auto Assessment/Plan Assessment/Plan (1) Non-pressure chronic ulcer of left calf with fat layer exposed: CODE(S): L97.222 - Non-pressure chronic ulcer of left calf with fat layer exposed (2) PVD (peripheral vascular disease): CODE(S): I73.9 - Peripheral vascular disease, unspecified (3) Atherosclerosis of [place] arteries of left leg with ulceration of calf: CODE(S): I70.242 - Atherosclerosis of [place] arteries of left leg with ulceration of calf (4) Unspecified severe protein-calorie malnutrition: CODE(S): E43 - Unspecified severe protein-calorie malnutrition (5) Difficulty in walking, not elsewhere classified: CODE(S): R26.2 - Difficulty in walking, not elsewhere classified (6) Hyperlipidemia: CODE(S): E78.5 - Hyperlipidemia, unspecified (7) Essential hypertension: CODE(S): I10 - Essential (primary) hypertension (8) 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 Doppler evaluation of bilateral lower extremity arteries was obtained and waveforms were noted to be multiphasic and monophasic continuously bilaterally.? Velocities are as follows: Right: Common femoral artery 114; SFA proximal, mid, and distal 98, 98, and 45; popliteal artery 38; posterior tibial artery 12 mono; DP not visualized.? Left: Common femoral artery 40 to continuity/parvus; SFA proximal, mid, distal 39, 24, 22 mono continuous/parvus; popliteal artery 19 mono continuous/parvus; posterior tibial artery not visualized; dorsalis pedis artery not visualized.? Conclusion: Nonvisualization of bilateral dorsalis pedis and right posterior tibial does not exclude occlusion.? There is greater than 50% stenosis throughout the entire left lower extremity and there is left aortoiliac disease. She was referred to vascular surgeon, Dr. Easton for further evaluation. Dr. Easton performed updated LEAS on 06/19/2022 which demonstrated right LOC 0.91 mild arterial insufficiency, Doppler/PVR waveforms and segmental pressures demonstrate distal SFA/popliteal disease. Left LOC 0.43 severe arterial insufficiency, Doppler/PVR waveforms and segmental pressures demonstrate aortoiliac and proximal femoral disease. She has 2 left lower extremity ulcerations: #1 anterior leg ulceration has healed today. No signs of infection.?#2 posterior medial ulceration demonstrates mixed fibrogranular layer and involvement of deep muscle, ulceration measures 5.6 cm x 2.8 cm x 0.5 cm.? Ulcerations underwent debridement as noted in the clinical panel above. She has finished her oral antibiotic, Doxycycline.? Dakin's to posterior leg wound and dressed with dry sterile dressing.? Tubigrip compression applied to the left lower extremity.? [facility] to [facility] daily. Her ulcerations demonstrate improvement in healing from previous visit. She has been approved for application of advanced wound care product, will hold from placement at current time.? Discussed with business banking manager taking patient to the OR for debridement with application of advanced wound care product following her vascular referral if she fails to progress in healing. At this time she is healing well and I will consider application of the advanced wound care product at her next visit in the wound care center. Encouraged pressure reduction of the site by ensuring the leg does not hang off the edge of the bed or have anything resting against the back of the leg this is including her contralateral heel as she often sleeps on her side.? Encouraged continued protein intake and healthy amount of calories to aid in healing of her ulcerative sites. Signs and symptoms of infection were discussed today with the business banking manager and patient.? She was instructed if she notices increasing redness about the wound site moving up the leg, any purulent drainage from the ulcer sites, increasing foul odor, or if she experiences fever greater than 101 degree, nausea, vomiting, or chills that these are signs of a progressing infection and she should report to the ED for IV antibiotics. The following work up and care recommendations were made: Dressing: Dakin's wet to dry posterior, Tubigrip compression Wash: Dakin's Tissue growth optimization: None Offload: Offload left lower extremity at all times for pressure reduction about the ulcerative site Vascular: LEAS performed on 05/15/2022 demonstrate moderate arterial stenosis of the left lower extremity. Updated LEAS performed 06/19/2022 demonstrates severe arterial insufficiency of the left lower extremity. She is currently following with vascular surgery Dr. Easton Edema: Tubigrip compression and elevation of lower extremities at times of rest Pain: May take [id number] Tylenol extra strength for discomfort Host factors: PVD ? I answered all the patient's questions.? To return to the wound healing center in 1 week or call sooner if the patient has any questions or concerns.
[2022-07-13 08:32] VITALS: TEMP 35.6
--- NOTE | 2022-07-13 08:40 | PCM.WC.PN ---
History of Present Illness Date of Service: 07/13/22 Chief Complaint: Left lower extremity wound x2 History of Wound: Patient is an 81-year-old female who was referred to the wound care center for left lower extremity ulceration x2. She is a resident of [facility]. She has history of PVD, atherosclerosis of [place] arteries of the leg, COPD, dementia, hypertension, occlusion and stenosis of the left carotid artery, and nonhealing ulceration to the left lower leg. Prior to being seen in the wound care center she was being treated by Anushka Dong CNP. She has undergone LEAS on 05/15/2022. She is not currently on antibiotics. Review of the notes state ulceration to the left anterior lower extremity is secondary to bumping her leg, while the posterior left lower extremity ulceration started as a eschar on the back of the leg and subsequently broke down. Patient states these wounds may have been present for a year, however her history seems poor. Baler states wounds have been present for a few weeks. Subjective Subjective Patient is an 82-year-old female who presents to the wound care center for follow-up of to left lower extremity ulcerations.? Nursing facility has been changing the dressings daily.? They are changing dressings daily with Dakin's wet-to-dry.? States she recently got over COVID. She denies any constitutional symptoms today.? Denies any further complaints today. Objective Data Objective Data Vital Signs: Vital Signs Temp Pulse Resp BP O2 Flow Rate 96.1 F L 104 H 20 H 113/86 H 2 07/13/22 08:32 06/22/22 08:21 06/22/22 08:21 06/22/22 08:21 06/19/22 00:11 Oxygen Flow Rate (L/min) 2 Physical Exam Const alert, oriented x3 and no apparent distress General Appearance: cooperative HEENT normocephalic Eyes General Eye: normal appearance of both eyes Neck General: normal visual inspection Lymph Lymphatic: no lymphadenopathy noted and no lymphedema noted Resp normal respiratory effort Cardio regular rate and regular rhythm Extremity normal capillary refill, no joint enlargement, no calf tenderness and no pedal edema Extremity Narrative: DP and PT pulses nonpalpable and monophasic on Doppler.? Capillary fill time is delayed to the digits.? Normal temperature gradient with absent hair growth to the digits.? +2 pitting edema about the lower extremity.? No pedal edema is noted. Musculoskeletal: Muscle strength 5/5 and age-appropriate. Skin no rashes or lesions noted, skin turgor normal and no jaundice Wound Narrative: Left lower extremity: Anterior leg ulceration healed.? Posterior medial ulceration demonstrates mixed fibrogranular layer. Ulcerations demonstrate no purulent drainage, no palpable fluctuance/bogginess, no visible abscess formation, no lymphangitis. Neuro moves all extremities Debridement Note Debridement Note Wound debrided: Left posterior leg Laterality: Left Wound Grade/Stage: Grade 4 pressure ulcer Type of Debridement: Excisional debridement Anesthesia Used: 5% Lidocaine Gel Depth: Down to and including healthy tissue and in the subcutaneous layer Percentage of wound debrided: 100 Instrument Used: 5mm curette Tissue Removed: Fibrous, devitalized subcutaneous, biofilm, slough Severity: Fat Layer Exposed Amount of bleeding with debridement: Mild Bleeding Controlled with: Compression and gauze Patient tolerated procedure: Patient tolerated procedure well Post-Debridement Measurements and Additional Note: Post-Debridement Measurements/Treatment - Nurse 1 - General Ulcer Assessment Start: 06/22/22 08:21 Freq: Status: Active Protocol: [email or web address].TIA Activity Type Activity Date Activity User E-sign Co-sign Detail Recorded Client Recorded Date Recorded By Document 06/22/22 08:21 PL [id number] 06/22/22 08:30 PL Document 07/13/22 08:32 AK [id number] 07/13/22 08:40 AK 06/22/22 07/13/22 08:21 08:32 - Today's Visit Information Type of service Follow-up Visit Follow-up Visit (Physician/FURNITURE FINISHER APPRENTICE (Physician/FURNITURE FINISHER APPRENTICE ) ) Arrival Mode Wheelchair Wheelchair Transfer Assistance Manual Patient Identification Verified (Name & Yes Yes ) Patient Requires Transmission-Based No No Precautions Safety Precautions NA NA Vital Signs Temperature (97.8 F-99.1 F) 97.0 F L 96.1 F L Temperature Source Temporal Temporal Pulse Rate (60-100) 104 H Respiratory Rate (12-18) 20 H Blood Pressure (90/60-120/80) 113/86 H Blood Pressure Mean (mm Hg) 95 History Since Last Visit- (Skip if this is Patient's initial visit) Have you changed medications since your No No last visit? Any new allergies or adverse reactions No No Had a fall/change in ADL's that may No No increase risk of falls Signs or symptoms of abuse and/or No No neglect since last visit Have you been in the hospital since your No No last visit? Has dressing in place as prescribed Yes Yes Has compression in place as prescribed Yes N/A Has offloadiing in place as prescribed N/A N/A Experienced any changes in pain level or No No management Left Footwear Regular Shoe Right Footwear Regular Shoe Pain Scale: 0-10 Numeric Is Patient Pain Free? Yes No WC - Nurse 1 - General Ulcer Measurement Start: 06/22/22 08:21 Freq: Status: Active Protocol: Activity Type Activity Date Activity User E-sign Co-sign Detail Recorded Client Recorded Date Recorded By Document 06/22/22 08:21 PL [id number] 06/22/22 08:30 PL Document 07/13/22 08:32 AK [id number] 07/13/22 08:40 AK 06/22/22 07/13/22 08:21 08:32 Wound Center Nurse 1 #1- L GARDNER -Current Size (cm) - Length 0.1 -Current Size (cm) - Width 0.1 -Current Size (cm) - Depth 0.1 -Total Square Cm 0.01 #2- L MED CALF -Current Size (cm) - Length 5.0 5.3 -Current Size (cm) - Width 2.5 1.8 -Current Size (cm) - Depth 0.5 0.8 -Total Square Cm 12.50 9.54 -Date of Last Picture (Recall this 07/13/22 field) -Photo Taken No Yes -Epithelialization Medium 34-66% -Tunneling No No -Undermining/Tunneling No No -Circular Undermining No No -Change in Wound Grade/Stage No -Exudate Amt Medium -Exudate Type Serosanguineous -Wound Margin Distinct, Outline Attached -Granulation Amt Small (1-33%) Large (67-100%) -Granulation Quality [place] -Slough/Fibrin Yes Yes -Necrosis Amt Large (67-100%) Small (1-33%) -Necrotic Tissue Type Adherent Slough Adherent Slough -Structure Exposed N/A -Texture (Senia-wound Skin Appearance) No Abnormality Assessed, Localized Edema ,Scarring -Moisture (Senia-wound Skin Appearance) No Abnormality Assessed -Color (Senia-wound Skin Appearance) No Abnormality Assessed -Temperature (Senia-wound Skin No Abnormality No Abnormality Appearance) (Pt Warm) (Pt Warm) -Tenderness on Palpation (Senia-wound No No Skin Appearance) -Ulcer Cleansing Rinsed/ Rinsed/ Irrigated with Irrigated with Saline Saline -Foul Odor after Cleansing No -Anesthetic Used 5% Lidocaine 5% Lidocaine Gel Gel WC - Nurse 2 - General Ulcer CM Notes Start: 06/22/22 08:21 Freq: Status: Active Protocol: Activity Type Activity Date Activity User E-sign Co-sign Detail Recorded Client Recorded Date Recorded By Document 06/22/22 08:49 [id number] 06/22/22 08:53 [id number] 06/22/22 08:49 Wound Center Nurse 2 #1- L GARDNER -Correct Patient No -Correct Side, Site, Position No -Correct Procedure No -Procedure Performed No -Post Debridement (cm) - Length 0 -Post Debridement (cm) - Width 0 -Post Debridement (cm) - Depth 0 -Total Square (Post) (cm) 0 -Area of Debridement (cm) - Length 0 -Area of Debridement (cm) - Width 0 -Total Square (Area) (cm) 0 -Wound/Ulcer Outcome Healed- Epithelialized #2- L MED CALF -Time 08:49 -Correct Patient Yes -Correct Side, Site, Position Yes -Correct Procedure Yes -Procedure Performed Yes -Type of Procedure Debridement -Clinical Debridement Muscle / Fascia -Tissue Removed Muscle,Fascia -Post Debridement (cm) - Length 5.6 -Post Debridement (cm) - Width 2.8 -Post Debridement (cm) - Depth 0.5 -Total Square (Post) (cm) 15.68 -Area of Debridement (cm) - Length 5.6 -Area of Debridement (cm) - Width 2.8 -Total Square (Area) (cm) 15.68 -Tunneling No -Undermining/Tunneling No -Circular Undermining No -Wound/Ulcer Outcome Not Healed -Ulcer Cleansing Rinsed/ Irrigated with Saline -Foul Odor after Cleansing No -Bioengineered Tissue No -Bleeding Controlled with Pressure -Treatment Response Procedure Tolerated Well -Offloading No -Debridement - Subq, 1st 20sq cm No -Debridement - Muscle / Fascia, 1st Yes 20sq cm Pain Scale: 0-10 Numeric Is Patient Pain Free? Yes WC - Nurse 3 - General Ulcer D/C NN Start: 06/22/22 08:21 Freq: Status: Active Protocol: Activity Type Activity Date Activity User E-sign Co-sign Detail Recorded Client Recorded Date Recorded By Document 06/22/22 09:41 PL [id number] 06/22/22 09:42 PL 06/22/22 09:41 Wound Care Center Nurse 3 #2- L MED CALF -Ulcer Cleansing Rinsed/ Irrigated with Saline -Foul Odor after Cleansing No -Other Dressing Dakin gauze -Primary Dressing Covered/Secured with Dry Gauze & Roll Gauze, Secured with Tape Pain Scale: 0-10 Numeric Is Patient Pain Free? Yes WC - Visit Discharge Discharge Condition Stable Ambulatory Status Wheelchair Transportation Private Auto Assessment/Plan Assessment/Plan (1) Non-pressure chronic ulcer of left calf with fat layer exposed: CODE(S): L97.222 - Non-pressure chronic ulcer of left calf with fat layer exposed (2) PVD (peripheral vascular disease): CODE(S): I73.9 - Peripheral vascular disease, unspecified (3) Atherosclerosis of [place] arteries of left leg with ulceration of calf: CODE(S): I70.242 - Atherosclerosis of [place] arteries of left leg with ulceration of calf (4) Unspecified severe protein-calorie malnutrition: CODE(S): E43 - Unspecified severe protein-calorie malnutrition (5) Difficulty in walking, not elsewhere classified: CODE(S): R26.2 - Difficulty in walking, not elsewhere classified (6) Hyperlipidemia: CODE(S): E78.5 - Hyperlipidemia, unspecified (7) Essential hypertension: CODE(S): I10 - Essential (primary) hypertension (8) 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 Doppler evaluation of bilateral lower extremity arteries was obtained and waveforms were noted to be multiphasic and monophasic continuously bilaterally.? Velocities are as follows: Right: Common femoral artery 114; SFA proximal, mid, and distal 98, 98, and 45; popliteal artery 38; posterior tibial artery 12 mono; DP not visualized.? Left: Common femoral artery 40 to continuity/parvus; SFA proximal, mid, distal 39, 24, 22 mono continuous/parvus; popliteal artery 19 mono continuous/parvus; posterior tibial artery not visualized; dorsalis pedis artery not visualized.? Conclusion: Nonvisualization of bilateral dorsalis pedis and right posterior tibial does not exclude occlusion.? There is greater than 50% stenosis throughout the entire left lower extremity and there is left aortoiliac disease. She was referred to vascular surgeon, Dr. Easton for further evaluation.? Dr. Easton performed updated LEAS on 06/19/2022 which demonstrated right LOC 0.91 mild arterial insufficiency, Doppler/PVR waveforms and segmental pressures demonstrate distal SFA/popliteal disease.? Left LOC 0.43 severe arterial insufficiency, Doppler/PVR waveforms and segmental pressures demonstrate aortoiliac and proximal femoral disease. She has 2 left lower extremity ulcerations: #1 anterior leg ulceration remains healed. No signs of infection.?#2 posterior medial ulceration demonstrates mixed fibrogranular layer and involvement of deep muscle, ulceration measures 5.6 cm x 2.0 cm x 0.5 cm.? Ulcerations underwent debridement as noted in the clinical panel above. She has finished her oral antibiotic, Doxycycline.? Discontinued Dakin's to posterior leg wound. EpiFix graft #1 applied to posterior leg wound and dressed with Adaptic touch, Steri-Strip, and dry sterile dressing. Tubigrip compression applied to the left lower extremity.? [facility] facility to change outer dressings as needed. She was instructed to not get the site wet. Her ulcerations demonstrate improvement in healing from previous visit. Encouraged pressure reduction of the site by ensuring the leg does not hang off the edge of the bed or have anything resting against the back of the leg this is including her contralateral heel as she often sleeps on her side.? Encouraged continued protein intake and healthy amount of calories to aid in healing of her ulcerative sites. Signs and symptoms of infection were discussed today with the education and training manager and patient.? She was instructed if she notices increasing redness about the wound site moving up the leg, any purulent drainage from the ulcer sites, increasing foul odor, or if she experiences fever greater than 101 degree, nausea, vomiting, or chills that these are signs of a progressing infection and she should report to the ED for IV antibiotics. The following work up and care recommendations were made: Dressing: EpiFix, Adaptic touch, Steri-Strips, dry sterile dressing, Tubigrip compression Wash: Do not get wet Tissue growth optimization: EpiFix Offload: Offload left lower extremity at all times for pressure reduction about the ulcerative site Vascular: LEAS performed on 05/15/2022 demonstrate moderate arterial stenosis of the left lower extremity.? Updated LEAS performed 06/19/2022 demonstrates severe arterial insufficiency of the left lower extremity.? She is currently following with vascular surgery Dr. Easton Edema: Tubigrip compression and elevation of lower extremities at times of rest Pain: May take [id number] Tylenol extra strength for discomfort Host factors: PVD ? I answered all the patient's questions.? To return to the wound healing center in 1 week or call sooner if the patient has any questions or concerns.
== END 2022-07-19 23:59 | disposition home or self-care (01) ==
LOC: WC 08:30
PROVIDERS: PCP Internal Medicine; Referring Provider Internal Medicine; Visit Provider Student in an Organized Health Care Education/Training Program
DX: L97.223 Non-pressure chronic ulcer of left calf with necrosis of muscle (principal); I70.242 Atherosclerosis of native arteries of left leg with ulceration of calf; L97.222 Non-pressure chronic ulcer of left calf with fat layer exposed; E43 Unspecified severe protein-calorie malnutrition; J44.9 Chronic obstructive pulmonary disease, unspecified; I65.22 Occlusion and stenosis of left carotid artery; R26.2 Difficulty in walking, not elsewhere classified; I10 Essential (primary) hypertension; E78.5 Hyperlipidemia, unspecified
CPT/HCPCS: 11043; 15271; Q4186

== ENCOUNTER 2022-08-17 08:30 | Outpatient (RCR) | payer MEDICARE, MEDICAID, SELFPAY ==
[2022-07-20 00:15] VITALS: BP 113/86; PULSE 104; RESP 20; TEMP 35.6
--- NOTE | 2022-07-20 08:22 | PN.PCM_ITS ---
History of Present Illness
--- NOTE | 2022-07-20 08:22 | PCM.WC.PN ---
History of Present Illness Date of Service: 07/20/22 Chief Complaint: Left lower extremity wound x2 History of Wound: Patient is an 81-year-old female who was referred to the wound care center for left lower extremity ulceration x2. She is a resident of [facility]. 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 Prior to being seen in the wound care center she was being treated by Anushka Dong CNP. She has undergone LEAS on 05/15/2022. She is not currently on antibiotics. Review of the notes state ulceration to the left anterior lower extremity is secondary to bumping her leg, while the posterior left lower extremity ulceration started as a eschar on the back of the leg and subsequently broke down. Patient states these wounds may have been present for a year, however her history seems poor. Copy Director states wounds have been present for a few weeks. Subjective Subjective Patient is an 82-year-old female who presents to the wound care center for follow-up of to left lower extremity ulcerations.? Nursing facility has been changing the dressings as needed and have left graft in place.? She denies any constitutional symptoms today.? Denies any further complaints today. Objective Data Objective Data Vital Signs: Vital Signs Temp Pulse Resp BP O2 Flow Rate 96.1 F L 104 H 20 H 113/86 H 2 07/20/22 00:15 07/20/22 00:15 07/20/22 00:15 07/20/22 00:15 07/20/22 00:15 Oxygen Flow Rate (L/min) 2 Physical Exam Const alert, oriented x3 and no apparent distress General Appearance: cooperative HEENT normocephalic Eyes General Eye: normal appearance of both eyes Neck General: normal visual inspection Lymph Lymphatic: no lymphadenopathy noted and no lymphedema noted Resp normal respiratory effort Cardio regular rate and regular rhythm Extremity normal capillary refill, no joint enlargement, no calf tenderness and no pedal edema Extremity Narrative: DP and PT pulses nonpalpable and monophasic on Doppler.? Capillary fill time is delayed to the digits.? Normal temperature gradient with absent hair growth to the digits.? +2 pitting edema about the lower extremity - improved.? No pedal edema is noted. Musculoskeletal: Muscle strength 5/5 and age-appropriate. Skin no rashes or lesions noted, skin turgor normal and no jaundice Wound Narrative: Left lower extremity: Anterior leg ulceration healed.? Posterior medial ulceration demonstrates mixed fibrogranular layer. Ulcerations demonstrate no purulent drainage, no palpable fluctuance/bogginess, no visible abscess formation, no lymphangitis. Neuro moves all extremities Debridement Note Debridement Note Wound debrided: Left posterior leg Laterality: Left Wound Grade/Stage: Stage IV pressure ulcer Type of Debridement: Excisional debridement Anesthesia Used: 5% Lidocaine Gel Depth: Down to and including healthy tissue and in the subcutaneous layer Percentage of wound debrided: 100 Instrument Used: 5mm curette Tissue Removed: Fibrous, devitalized subcutaneous, biofilm, slough Severity: Fat Layer Exposed Amount of bleeding with debridement: Mild Bleeding Controlled with: Compression and gauze Patient tolerated procedure: Patient tolerated procedure well 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 (2) Non-pressure chronic ulcer of left calf with fat layer exposed: CODE(S): L97.222 - Non-pressure chronic ulcer of left calf with fat layer exposed (3) PVD (peripheral vascular disease): CODE(S): I73.9 - Peripheral vascular disease, unspecified (4) Atherosclerosis of [place] arteries of left leg with ulceration of calf: CODE(S): I70.242 - Atherosclerosis of [place] arteries of left leg with ulceration of calf (5) Unspecified severe protein-calorie malnutrition: CODE(S): E43 - Unspecified severe protein-calorie malnutrition (6) Difficulty in walking, not elsewhere classified: CODE(S): R26.2 - Difficulty in walking, not elsewhere classified (7) Hyperlipidemia: CODE(S): E78.5 - Hyperlipidemia, unspecified (8) Essential hypertension: CODE(S): I10 - Essential (primary) hypertension PLAN: Plan Patient seen and evaluated She did undergo LEAS on 05/15/2022.? Doppler evaluation of bilateral lower extremity arteries was obtained and waveforms were noted to be multiphasic and monophasic continuously bilaterally.? Velocities are as follows: Right: Common femoral artery 114; SFA proximal, mid, and distal 98, 98, and 45; popliteal artery 38; posterior tibial artery 12 mono; DP not visualized.? Left: Common femoral artery 40 to continuity/parvus; SFA proximal, mid, distal 39, 24, 22 mono continuous/parvus; popliteal artery 19 mono continuous/parvus; posterior tibial artery not visualized; dorsalis pedis artery not visualized.? Conclusion: Nonvisualization of bilateral dorsalis pedis and right posterior tibial does not exclude occlusion.? There is greater than 50% stenosis throughout the entire left lower extremity and there is left aortoiliac disease. She was referred to vascular surgeon, Dr. Easton for further evaluation.? Dr. Easton performed updated LEAS on 06/19/2022 which demonstrated right LOC 0.91 mild arterial insufficiency, Doppler/PVR waveforms and segmental pressures demonstrate distal SFA/popliteal disease.? Left LOC 0.43 severe arterial insufficiency, Doppler/PVR waveforms and segmental pressures demonstrate aortoiliac and proximal femoral disease. Recommended to patient to proceed with intervention to aid in her healing status. She has left lower extremity ulceration: #1 anterior leg ulceration remains healed. No signs of infection.?#2 posterior medial ulceration demonstrates mixed fibrogranular layer and involvement of deep muscle, ulceration measures 5.0 cm x 1.5 cm x 0.8 cm.? Ulcerations underwent debridement as noted in the clinical panel above. She has finished her oral antibiotic, Doxycycline.? Discontinued Dakin's to posterior leg wound.? EpiFix graft #2 applied to posterior leg wound and dressed with Adaptic touch, Steri-Strip, and dry sterile dressing.? Tubigrip compression applied to the left lower extremity.? care home facility to change outer dressings as needed.? She was instructed to not get the site wet. Her ulcerations demonstrate improvement in healing from previous visit. Encouraged pressure reduction of the site by ensuring the leg does not hang off the edge of the bed or have anything resting against the back of the leg this is including her contralateral heel as she often sleeps on her side.? Encouraged continued protein intake and healthy amount of calories to aid in healing of her ulcerative sites. Signs and symptoms of infection were discussed today with the electronics processor and patient.? She was instructed if she notices increasing redness about the wound site moving up the leg, any purulent drainage from the ulcer sites, increasing foul odor, or if she experiences fever greater than 101 degree, nausea, vomiting, or chills that these are signs of a progressing infection and she should report to the ED for IV antibiotics. The following work up and care recommendations were made: Dressing: EpiFix, Adaptic touch, Steri-Strips, dry sterile dressing, Tubigrip compression Wash: Do not get wet Tissue growth optimization: EpiFix Offload: Offload left lower extremity at all times for pressure reduction about the ulcerative site Vascular: LEAS performed on 05/15/2022 demonstrate moderate arterial stenosis of the left lower extremity.? Updated LEAS performed 06/19/2022 demonstrates severe arterial insufficiency of the left lower extremity.? She is currently following with vascular surgery Dr. Easton Edema: Tubigrip compression and elevation of lower extremities at times of rest Pain: May take [id number] Tylenol extra strength for discomfort Host factors: PVD ? I answered all the patient's questions.? To return to the wound healing center in 1 week or call sooner if the patient has any questions or concerns.
[2022-07-20 09:45] VITALS: BP 104/70; PULSE 95; TEMP 35.9
--- NOTE | 2022-07-27 08:19 | PCM.WC.PN ---
History of Present Illness Date of Service: 07/27/22 Chief Complaint: Left lower extremity wound x2 History of Wound: Patient is an 81-year-old female who was referred to the wound care center for left lower extremity ulceration x2. She is a resident of [facility]. 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 Prior to being seen in the wound care center she was being treated by Anushka Dong CNP. She has undergone LEAS on 05/15/2022. She is not currently on antibiotics. Review of the notes state ulceration to the left anterior lower extremity is secondary to bumping her leg, while the posterior left lower extremity ulceration started as a eschar on the back of the leg and subsequently broke down. Patient states these wounds may have been present for a year, however her history seems poor. [place] states wounds have been present for a few weeks. Subjective Subjective Patient is an 82-year-old female who presents to the wound care center for follow-up of to left lower extremity ulcerations.? Nursing facility has been changing the dressings as needed and have left graft in place. She states that her pain is improving. She denies any constitutional symptoms today.? Denies any further complaints today. Objective Data Objective Data Vital Signs: Vital Signs Temp Pulse Resp BP O2 Flow Rate 96.7 F L 95 20 H 104/70 2 07/20/22 09:45 07/20/22 09:45 07/20/22 00:15 07/20/22 09:45 07/20/22 00:15 Oxygen Flow Rate (L/min) 2 Physical Exam Const alert, oriented x3 and no apparent distress General Appearance: cooperative HEENT normocephalic Eyes General Eye: normal appearance of both eyes Neck General: normal visual inspection Lymph Lymphatic: no lymphadenopathy noted and no lymphedema noted Resp normal respiratory effort Cardio regular rate and regular rhythm Extremity normal capillary refill, no joint enlargement, no calf tenderness and no pedal edema Extremity Narrative: DP and PT pulses nonpalpable and monophasic on Doppler.? Capillary fill time is delayed to the digits.? Normal temperature gradient with absent hair growth to the digits.? +2 pitting edema about the lower extremity - improved.? No pedal edema is noted. Musculoskeletal: Muscle strength 5/5 and age-appropriate. Skin no rashes or lesions noted, skin turgor normal and no jaundice Wound Narrative: Left lower extremity: Anterior leg ulceration healed.? Posterior medial ulceration demonstrates mixed fibrogranular layer. Ulcerations demonstrate no purulent drainage, no palpable fluctuance/bogginess, no visible abscess formation, no lymphangitis. Neuro moves all extremities Debridement Note Debridement Note Wound debrided: Left lower extremity Laterality: Left Wound Grade/Stage: Stage IV pressure ulcer Type of Debridement: Excisional debridement Anesthesia Used: 5% Lidocaine Gel Depth: Down to and including healthy tissue and in the subcutaneous layer Percentage of wound debrided: 100 Instrument Used: 5mm curette Tissue Removed: Fibrous, devitalized subcutaneous, biofilm, slough Severity: Fat Layer Exposed Amount of bleeding with debridement: Mild Bleeding Controlled with: Compression and gauze Patient tolerated procedure: Patient tolerated procedure well Post-Debridement Measurements and Additional Note: Post-Debridement Measurements/Treatment [id number] - Nurse 1 - General Ulcer Assessment Start: 07/20/22 09:45 Freq: Status: Active Protocol: KENDALL Activity Type Activity Date Activity User E-sign Co-sign Detail Recorded Client Recorded Date Recorded By Document 07/20/22 09:45 [email or web address] [id number] 07/20/22 09:47 LEFTY 07/20/22 09:45 - Today's Visit Information Type of service Follow-up Visit (Physician/MANAGER SALES SUPPORT ) Arrival Mode Wheelchair Patient Identification Verified (Name & Yes ) Patient Requires Transmission-Based No Precautions Safety Precautions NA Vital Signs Temperature (97.8 F-99.1 F) 96.7 F L Temperature Source Temporal Pulse Rate (60-100) 95 Pulse Location Monitor Blood Pressure (90/60-120/80) 104/70 Blood Pressure Mean (mm Hg) 81 Source Monitor History Since Last Visit- (Skip if this is Patient's initial visit) Have you changed medications since your No last visit? Any new allergies or adverse reactions No Had a fall/change in ADL's that may No increase risk of falls Signs or symptoms of abuse and/or No neglect since last visit Have you been in the hospital since your No last visit? Has dressing in place as prescribed Yes Has compression in place as prescribed N/A Has offloadiing in place as prescribed N/A Experienced any changes in pain level or No management Left Footwear Slipper Right Footwear Slipper Pain Scale: 0-10 Numeric Is Patient Pain Free? Yes WC - Nurse 1 - General Ulcer Measurement Start: 07/20/22 09:45 Freq: Status: Active Protocol: Activity Type Activity Date Activity User E-sign Co-sign Detail Recorded Client Recorded Date Recorded By Document 07/20/22 09:45 AK [id number] 07/20/22 09:47 AK 07/20/22 09:45 Wound Center Nurse 1 #2- L MED CALF -Combined with other wound No -Current Size (cm) - Length 5 -Current Size (cm) - Width 1.5 -Current Size (cm) - Depth 0.5 -Total Square Cm 7.5 -Date of Last Picture (Recall this 07/20/22 field) -Photo Taken Yes -Tunneling No -Undermining/Tunneling No -Circular Undermining No -Change in Wound Grade/Stage No -Exudate Amt Medium -Exudate Type Serosanguineous -Wound Margin Distinct, Outline Attached -Granulation Amt Large (67-100%) -Granulation Quality Red -Slough/Fibrin Yes -Necrosis Amt Small (1-33%) -Necrotic Tissue Type Adherent Slough -Structure Exposed Muscle -Texture (Senia-wound Skin Appearance) Assessed, Scarring -Moisture (Senia-wound Skin Appearance) Assessed,Dry/ Scaly -Color (Senia-wound Skin Appearance) Assessed, Hemosiderin Staining -Temperature (Senia-wound Skin No Abnormality Appearance) (Pt Warm) -Tenderness on Palpation (Senia-wound No Skin Appearance) -Ulcer Cleansing Soap and Water -Foul Odor after Cleansing No -Anesthetic Used 5% Lidocaine Gel WC - Nurse 2 - General Ulcer CM Notes Start: 07/20/22 09:45 Freq: Status: Active Protocol: Activity Type Activity Date Activity User E-sign Co-sign Detail Recorded Client Recorded Date Recorded By Document 07/20/22 12:09 [email or web address] [id number] 07/20/22 12:11 PL 07/20/22 12:09 Wound Center Nurse 2 -Time 08:42 -Correct Patient Yes -Correct Side, Site, Position Yes -Correct Procedure Yes -Procedure Performed Yes -Type of Procedure Debridement -Clinical Debridement Subcutaneous -Tissue Removed Subcutaneous -Post Debridement (cm) - Length 5.0 -Post Debridement (cm) - Width 1.5 -Post Debridement (cm) - Depth 0.8 -Total Square (Post) (cm) 7.50 -Area of Debridement (cm) - Length 5.0 -Area of Debridement (cm) - Width 1.5 -Total Square (Area) (cm) 7.50 -Tunneling No -Undermining/Tunneling No -Circular Undermining No -Wound/Ulcer Outcome Not Healed -Ulcer Cleansing Rinsed/ Irrigated with Saline -Foul Odor after Cleansing No -Bioengineered Tissue Yes -Type of Bioengineered Tissue Epifix Mesh -Expiration Date 04/20/27 -Product Lot Number [id number] -Percent Used 100 -Bleeding Controlled with Pressure -Treatment Response Procedure Tolerated Well -Debridement - Subq, 1st 20sq cm No -Apply Skin Sub - 1st 25 sq cm - Legs 1 -Epifix Mesh (per sq cm) 11 Pain Scale: 0-10 Numeric Is Patient Pain Free? Yes - Nurse 3 - General Ulcer D/C NN Start: 07/20/22 09:45 Freq: Status: Active Protocol: Activity Type Activity Date Activity User E-sign Co-sign Detail Recorded Client Recorded Date Recorded By Document 07/20/22 09:45 [email or web address] [id number] 07/20/22 09:47 AK 07/20/22 09:45 Vital Signs Temperature (97.8 F-99.1 F) 96.7 F L Temperature Source Temporal Pulse Rate (60-100) 95 Pulse Location Monitor Blood Pressure (90/60-120/80) 104/70 Blood Pressure Mean (mm Hg) 81 Source Monitor Pain Scale: 0-10 Numeric Is Patient Pain Free? 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 (2) Non-pressure chronic ulcer of left calf with fat layer exposed: CODE(S): L97.222 - Non-pressure chronic ulcer of left calf with fat layer exposed (3) PVD (peripheral vascular disease): CODE(S): I73.9 - Peripheral vascular disease, unspecified (4) Atherosclerosis of habematolel arteries of left leg with ulceration of calf: CODE(S): I70.242 - Atherosclerosis of habematolel arteries of left leg with ulceration of calf (5) Unspecified severe protein-calorie malnutrition: CODE(S): E43 - Unspecified severe protein-calorie malnutrition (6) Difficulty in walking, not elsewhere classified: CODE(S): R26.2 - Difficulty in walking, not elsewhere classified (7) Hyperlipidemia: CODE(S): E78.5 - Hyperlipidemia, unspecified (8) Essential hypertension: CODE(S): I10 - Essential (primary) hypertension PLAN: Plan Patient seen and evaluated She did undergo LEAS on 05/15/2022.? Doppler evaluation of bilateral lower extremity arteries was obtained and waveforms were noted to be multiphasic and monophasic continuously bilaterally.? Velocities are as follows: Right: Common femoral artery 114; SFA proximal, mid, and distal 98, 98, and 45; popliteal artery 38; posterior tibial artery 12 mono; DP not visualized.? Left: Common femoral artery 40 to continuity/parvus; SFA proximal, mid, distal 39, 24, 22 mono continuous/parvus; popliteal artery 19 mono continuous/parvus; posterior tibial artery not visualized; dorsalis pedis artery not visualized.? Conclusion: Nonvisualization of bilateral dorsalis pedis and right posterior tibial does not exclude occlusion.? There is greater than 50% stenosis throughout the entire left lower extremity and there is left aortoiliac disease. She was referred to vascular surgeon, Dr. Easton for further evaluation.? Dr. Easton performed updated LEAS on 06/19/2022 which demonstrated right LOC 0.91 mild arterial insufficiency, Doppler/PVR waveforms and segmental pressures demonstrate distal SFA/popliteal disease.? Left LOC 0.43 severe arterial insufficiency, Doppler/PVR waveforms and segmental pressures demonstrate aortoiliac and proximal femoral disease. Recommended to patient to proceed with intervention to aid in her healing status. She has left lower extremity ulceration: #1 anterior leg ulceration remains healed. No signs of infection.?#2 posterior medial ulceration demonstrates mixed fibrogranular layer and involvement of deep muscle, ulceration measures 4.8 cm x 1.4 cm x 0.5 cm.? Ulcerations underwent debridement as noted in the clinical panel above. EpiFix graft #3 applied to posterior leg wound and dressed with Adaptic touch, Steri-Strip, and dry sterile dressing.? Tubigrip compression applied to the left lower extremity.? snf facility to change outer dressings as needed.? She was instructed to not get the site wet. Her ulcerations demonstrate improvement in healing from previous visit. Encouraged pressure reduction of the site by ensuring the leg does not hang off the edge of the bed or have anything resting against the back of the leg this is including her contralateral heel as she often sleeps on her side.? Encouraged continued protein intake and healthy amount of calories to aid in healing of her ulcerative sites. Signs and symptoms of infection were discussed today with the preschool substitute teacher and patient.? She was instructed if she notices increasing redness about the wound site moving up the leg, any purulent drainage from the ulcer sites, increasing foul odor, or if she experiences fever greater than 101 degree, nausea, vomiting, or chills that these are signs of a progressing infection and she should report to the ED for IV antibiotics. The following work up and care recommendations were made: Dressing: EpiFix, Adaptic touch, Steri-Strips, dry sterile dressing, Tubigrip compression Wash: Do not get wet Tissue growth optimization: EpiFix Offload: Offload left lower extremity at all times for pressure reduction about the ulcerative site Vascular: LEAS performed on 05/15/2022 demonstrate moderate arterial stenosis of the left lower extremity.? Updated LEAS performed 06/19/2022 demonstrates severe arterial insufficiency of the left lower extremity.? She is currently following with vascular surgery Dr. Easton Edema: Tubigrip compression and elevation of lower extremities at times of rest Pain: May take [id number] Tylenol extra strength for discomfort Host factors: PVD ? I answered all the patient's questions.? To return to the wound healing center in 1 week or call sooner if the patient has any questions or concerns.
[2022-07-27 08:21] VITALS: BP 110/64; PULSE 95; RESP 16; TEMP 35.3
--- NOTE | 2022-08-03 08:55 | PCM.WC.PN ---
History of Present Illness Date of Service: 08/03/22 Chief Complaint: Left lower extremity wound x2 History of Wound: Patient is an 81-year-old female who was referred to the wound care center for left lower extremity ulceration x2. She is a resident of [facility]. 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 Prior to being seen in the wound care center she was being treated by Anushka Dong CNP. She has undergone LEAS on 05/15/2022. She is not currently on antibiotics. Review of the notes state ulceration to the left anterior lower extremity is secondary to bumping her leg, while the posterior left lower extremity ulceration started as a eschar on the back of the leg and subsequently broke down. Patient states these wounds may have been present for a year, however her history seems poor. Talent Partner states wounds have been present for a few weeks. Subjective Subjective Patient is an 82-year-old female who presents to the wound care center for follow-up of to left lower extremity ulcerations.? Nursing facility has been changing the dressings as needed and have left graft in place.? She states that her pain is improving and family is noticing the wound is getting smaller.? She denies any constitutional symptoms today.? Denies any further complaints today. Objective Data Objective Data Vital Signs: Vital Signs Temp Pulse Resp BP O2 Flow Rate 95.5 F L 95 16 110/64 2 07/27/22 08:21 07/27/22 08:21 07/27/22 08:21 07/27/22 08:21 07/20/22 00:15 Oxygen Flow Rate (L/min) 2 Physical Exam Const alert, oriented x3 and no apparent distress General Appearance: cooperative HEENT normocephalic Eyes General Eye: normal appearance of both eyes Neck General: normal visual inspection Lymph Lymphatic: no lymphadenopathy noted and no lymphedema noted Resp normal respiratory effort Cardio regular rate and regular rhythm Extremity normal capillary refill, no joint enlargement, no calf tenderness and no pedal edema Extremity Narrative: DP and PT pulses nonpalpable and monophasic on Doppler.? Capillary fill time is delayed to the digits.? Normal temperature gradient with absent hair growth to the digits.? +2 pitting edema about the lower extremity - improved.? No pedal edema is noted. Musculoskeletal: Muscle strength 5/5 and age-appropriate. Skin no rashes or lesions noted, skin turgor normal and no jaundice Wound Narrative: Left lower extremity: Anterior leg ulceration healed.? Posterior medial ulceration demonstrates mixed fibrogranular layer. Ulcerations demonstrate no purulent drainage, no palpable fluctuance/bogginess, no visible abscess formation, no lymphangitis. Neuro moves all extremities Debridement Note Debridement Note Wound debrided: Left lower extremity Laterality: Left Wound Grade/Stage: Pressure ulcer stage IV Type of Debridement: Excisional debridement Anesthesia Used: 5% Lidocaine Gel Depth: Down to and including healthy tissue and in the subcutaneous layer Percentage of wound debrided: 100 Instrument Used: 5mm curette Tissue Removed: Fibrous, devitalized subcutaneous, biofilm, slough Severity: Fat Layer Exposed Amount of bleeding with debridement: Mild Bleeding Controlled with: Compression and gauze Patient tolerated procedure: Patient tolerated procedure well Post-Debridement Measurements and Additional Note: Post-Debridement Measurements/Treatment - Nurse 1 - General Ulcer Assessment Start: 07/20/22 09:45 Freq: Status: Active Protocol: SHAHZAD.TIA Activity Type Activity Date Activity User E-sign Co-sign Detail Recorded Client Recorded Date Recorded By Document 07/20/22 09:45 DC [id number] 07/20/22 09:47 DC Document 07/27/22 08:21 [id number] 07/27/22 08:28 07/20/22 07/27/22 09:45 08:21 - Today's Visit Information Type of service Follow-up Visit Follow-up Visit (Physician/CLAY TEMPERER (Physician/CLAY TEMPERER ) ) Arrival Mode Wheelchair Wheelchair Transfer Assistance Manual Patient Identification Verified (Name & Yes Yes ) Patient Requires Transmission-Based No No Precautions Safety Precautions NA Vital Signs Temperature (97.8 F-99.1 F) 96.7 F L 95.5 F L Temperature Source Temporal Temporal Pulse Rate (60-100) 95 95 Pulse Location Monitor Monitor Respiratory Rate (12-18) 16 Respiratory rate source Observation Blood Pressure (90/60-120/80) 104/70 110/64 Blood Pressure Mean (mm Hg) 81 79 Source Monitor Monitor Position Sitting Blood Pressure Location Left Arm History Since Last Visit- (Skip if this is Patient's initial visit) Have you changed medications since your No No last visit? Any new allergies or adverse reactions No No Had a fall/change in ADL's that may No No increase risk of falls Signs or symptoms of abuse and/or No No neglect since last visit Have you been in the hospital since your No No last visit? Has dressing in place as prescribed Yes Yes Has compression in place as prescribed N/A N/A Has offloadiing in place as prescribed N/A N/A Experienced any changes in pain level or No No management Left Footwear Slipper Regular Shoe Right Footwear Slipper Regular Shoe Pain Scale: 0-10 Numeric Is Patient Pain Free? Yes Yes WC - Nurse 1 - General Ulcer Measurement Start: 07/20/22 09:45 Freq: Status: Active Protocol: Activity Type Activity Date Activity User E-sign Co-sign Detail Recorded Client Recorded Date Recorded By Document 07/20/22 09:45 DC [id number] 07/20/22 09:47 AK Document 07/27/22 08:21 JF [id number] 07/27/22 08:28 07/20/22 07/27/22 09:45 08:21 Wound Center Nurse 1 #2- L MED CALF -Combined with other wound No No -Current Size (cm) - Length 5 4.5 -Current Size (cm) - Width 1.5 1.2 -Current Size (cm) - Depth 0.5 0.5 -Total Square Cm 7.5 5.40 -Date of Last Picture (Recall this 07/20/22 field) -Photo Taken Yes Yes -Epithelialization Medium 34-66% -Tunneling No No -Undermining/Tunneling No No -Circular Undermining No No -Change in Wound Grade/Stage No -Exudate Amt Medium Medium -Exudate Type Serosanguineous Serosanguineous -Wound Margin Distinct, Flat & Intact Outline Attached -Granulation Amt Large (67-100%) Small (1-33%) -Granulation Quality [place] -Slough/Fibrin Yes Yes -Necrosis Amt Small (1-33%) Large (67-100%) -Necrotic Tissue Type Adherent Slough Adherent Slough -Structure Exposed Muscle N/A -Texture (Senia-wound Skin Appearance) Assessed, Assessed Scarring -Moisture (Senia-wound Skin Appearance) Assessed,Dry/ Assessed,Dry/ Scaly Scaly -Color (Senia-wound Skin Appearance) Assessed, Assessed Hemosiderin Staining -Temperature (Senia-wound Skin No Abnormality No Abnormality Appearance) (Pt Warm) (Pt Warm) -Tenderness on Palpation (Senia-wound No No Skin Appearance) -Ulcer Cleansing Soap and Water Wound Cleanser -Foul Odor after Cleansing No No -Anesthetic Used 5% Lidocaine 5% Lidocaine Gel Gel Lower Limb Edema Present NA WC - Nurse 2 - General Ulcer CM Notes Start: 07/20/22 09:45 Freq: Status: Active Protocol: Activity Type Activity Date Activity User E-sign Co-sign Detail Recorded Client Recorded Date Recorded By Document 07/20/22 12:09 PL [id number] 07/20/22 12:11 PL Document 07/27/22 12:33 PL [id number] 07/27/22 12:35 PL 07/20/22 07/27/22 12:09 12:33 Wound Center Nurse 2 #2- L MED CALF -Time 08:42 08:30 -Correct Patient Yes Yes -Correct Side, Site, Position Yes Yes -Correct Procedure Yes Yes -Procedure Performed Yes Yes -Type of Procedure Debridement Debridement -Clinical Debridement Subcutaneous Subcutaneous -Tissue Removed Subcutaneous Subcutaneous -Post Debridement (cm) - Length 5.0 4.8 -Post Debridement (cm) - Width 1.5 1.4 -Post Debridement (cm) - Depth 0.8 0.5 -Total Square (Post) (cm) 7.50 6.72 -Area of Debridement (cm) - Length 5.0 4.8 -Area of Debridement (cm) - Width 1.5 1.4 -Total Square (Area) (cm) 7.50 6.72 -Tunneling No No -Undermining/Tunneling No No -Circular Undermining No No -Wound/Ulcer Outcome Not Healed Not Healed -Ulcer Cleansing Rinsed/ Rinsed/ Irrigated with Irrigated with Saline Saline -Foul Odor after Cleansing No No -Bioengineered Tissue Yes Yes -Type of Bioengineered Tissue Epifix Mesh Epifix Mesh -Expiration Date 04/20/27 05/21/27 -Product Lot Number [id number] -Percent Used 100 100 -Bleeding Controlled with Pressure Pressure -Treatment Response Procedure Procedure Tolerated Well Tolerated Well -Debridement - Subq, 1st 20sq cm No No -Apply Skin Sub - 1st 25 sq cm - Legs 1 1 -Epifix Mesh (per sq cm) 11 11 Pain Scale: 0-10 Numeric Is Patient Pain Free? Yes Yes - Nurse 3 - General Ulcer D/C NN Start: 07/20/22 09:45 Freq: Status: Active Protocol: Activity Type Activity Date Activity User E-sign Co-sign Detail Recorded Client Recorded Date Recorded By Document 07/20/22 09:45 AK [id number] 07/20/22 09:47 AK Document 07/27/22 08:57 JF [id number] 07/27/22 08:58 JF 07/20/22 07/27/22 09:45 08:57 Vital Signs Temperature (97.8 F-99.1 F) 96.7 F L Temperature Source Temporal Pulse Rate (60-100) 95 Pulse Location Monitor Blood Pressure (90/60-120/80) 104/70 Blood Pressure Mean (mm Hg) 81 Source Monitor Pain Scale: 0-10 Numeric Is Patient Pain Free? 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 (2) Non-pressure chronic ulcer of left calf with fat layer exposed: CODE(S): L97.222 - Non-pressure chronic ulcer of left calf with fat layer exposed (3) PVD (peripheral vascular disease): CODE(S): I73.9 - Peripheral vascular disease, unspecified (4) Atherosclerosis of cachil dehe arteries of left leg with ulceration of calf: CODE(S): I70.242 - Atherosclerosis of cachil dehe arteries of left leg with ulceration of calf (5) Unspecified severe protein-calorie malnutrition: CODE(S): E43 - Unspecified severe protein-calorie malnutrition (6) Difficulty in walking, not elsewhere classified: CODE(S): R26.2 - Difficulty in walking, not elsewhere classified (7) Hyperlipidemia: CODE(S): E78.5 - Hyperlipidemia, unspecified (8) Essential hypertension: CODE(S): I10 - Essential (primary) hypertension PLAN: Plan Patient seen and evaluated She did undergo LEAS on 05/15/2022.? Doppler evaluation of bilateral lower extremity arteries was obtained and waveforms were noted to be multiphasic and monophasic continuously bilaterally.? Velocities are as follows: Right: Common femoral artery 114; SFA proximal, mid, and distal 98, 98, and 45; popliteal artery 38; posterior tibial artery 12 mono; DP not visualized.? Left: Common femoral artery 40 to continuity/parvus; SFA proximal, mid, distal 39, 24, 22 mono continuous/parvus; popliteal artery 19 mono continuous/parvus; posterior tibial artery not visualized; dorsalis pedis artery not visualized.? Conclusion: Nonvisualization of bilateral dorsalis pedis and right posterior tibial does not exclude occlusion.? There is greater than 50% stenosis throughout the entire left lower extremity and there is left aortoiliac disease. She was referred to vascular surgeon, Dr. Easton for further evaluation.? Dr. Easton performed updated LEAS on 06/19/2022 which demonstrated right LOC 0.91 mild arterial insufficiency, Doppler/PVR waveforms and segmental pressures demonstrate distal SFA/popliteal disease.? Left LOC 0.43 severe arterial insufficiency, Doppler/PVR waveforms and segmental pressures demonstrate aortoiliac and proximal femoral disease. Recommended to patient to proceed with intervention to aid in her healing status. She has left lower extremity ulceration: #1 anterior leg ulceration remains healed. No signs of infection.?#2 posterior medial ulceration demonstrates mixed fibrogranular layer and involvement of deep muscle, ulceration measures 4.8 cm x 1.1 cm x 0.4 cm.? Ulcerations underwent debridement as noted in the clinical panel above. EpiFix graft #4 applied to posterior leg wound and dressed with Adaptic touch, Steri-Strip, and dry sterile dressing.? Tubigrip compression applied to the left lower extremity.? [facility] facility to change outer dressings as needed.? She was instructed to not get the site wet. Her ulcerations demonstrate continued improvement in healing from previous visit. Encouraged pressure reduction of the site by ensuring the leg does not hang off the edge of the bed or have anything resting against the back of the leg this is including her contralateral heel as she often sleeps on her side.? Encouraged continued protein intake and healthy amount of calories to aid in healing of her ulcerative sites. Signs and symptoms of infection were discussed today with the water filtration technician and patient.? She was instructed if she notices increasing redness about the wound site moving up the leg, any purulent drainage from the ulcer sites, increasing foul odor, or if she experiences fever greater than 101 degree, nausea, vomiting, or chills that these are signs of a progressing infection and she should report to the ED for IV antibiotics. The following work up and care recommendations were made: Dressing: EpiFix, Adaptic touch, Steri-Strips, dry sterile dressing, Tubigrip compression Wash: Do not get wet Tissue growth optimization: EpiFix Offload: Offload left lower extremity at all times for pressure reduction about the ulcerative site Vascular: LEAS performed on 05/15/2022 demonstrate moderate arterial stenosis of the left lower extremity.? Updated LEAS performed 06/19/2022 demonstrates severe arterial insufficiency of the left lower extremity.? She is currently following with vascular surgery Dr. Easton Edema: Tubigrip compression and elevation of lower extremities at times of rest Pain: May take [id number] Tylenol extra strength for discomfort Host factors: PVD ? I answered all the patient's questions.? To return to the wound healing center in 1 week or call sooner if the patient has any questions or concerns.
[2022-08-03 09:01] VITALS: BP 79/52; PULSE 96; RESP 18
--- NOTE | 2022-08-10 09:41 | PCM.WC.PN ---
History of Present Illness Date of Service: 08/10/22 Chief Complaint: Left lower extremity wound x2 History of Wound: Patient is an 81-year-old female who was referred to the wound care center for left lower extremity ulceration x2. She is a resident of [facility]. 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 Prior to being seen in the wound care center she was being treated by Anushka Dong CNP. She has undergone LEAS on 05/15/2022. She is not currently on antibiotics. Review of the notes state ulceration to the left anterior lower extremity is secondary to bumping her leg, while the posterior left lower extremity ulceration started as a eschar on the back of the leg and subsequently broke down. Patient states these wounds may have been present for a year, however her history seems poor. Victim Advocate states wounds have been present for a few weeks. Subjective Subjective Patient is an 82-year-old female who presents to the wound care center for follow-up of to left lower extremity ulcerations.? Nursing facility has been changing the dressings as needed and have left graft in place.? She states that her pain is improving and family is noticing the wound is continuing to get smaller.? She denies any constitutional symptoms today.? Denies any further complaints today. Objective Data Objective Data Vital Signs: Vital Signs Temp Pulse Resp BP O2 Flow Rate 95.5 F L 96 18 79/52 L 2 07/27/22 08:21 08/03/22 09:01 08/03/22 09:01 08/03/22 09:01 07/20/22 00:15 Oxygen Flow Rate (L/min) 2 Physical Exam Const alert, oriented x3 and no apparent distress General Appearance: cooperative HEENT normocephalic Eyes General Eye: normal appearance of both eyes Neck General: normal visual inspection Lymph Lymphatic: no lymphadenopathy noted and no lymphedema noted Resp normal respiratory effort Cardio regular rate and regular rhythm Extremity normal capillary refill, no joint enlargement, no calf tenderness and no pedal edema Extremity Narrative: DP and PT pulses nonpalpable and monophasic on Doppler.? Capillary fill time is delayed to the digits.? Normal temperature gradient with absent hair growth to the digits.? +2 pitting edema about the lower extremity - improved.? No pedal edema is noted. Musculoskeletal: Muscle strength 5/5 and age-appropriate. Skin no rashes or lesions noted, skin turgor normal and no jaundice Wound Narrative: Left lower extremity: Anterior leg ulceration healed.? Posterior medial ulceration demonstrates mixed fibrogranular layer. Ulcerations demonstrate no purulent drainage, no palpable fluctuance/bogginess, no visible abscess formation, no lymphangitis. Neuro moves all extremities Debridement Note Debridement Note Wound debrided: Left lower extremity Laterality: Left Wound Grade/Stage: Pressure ulcer stage IV Type of Debridement: Excisional debridement Anesthesia Used: 5% Lidocaine Gel Depth: Down to and including healthy tissue and in the subcutaneous layer Percentage of wound debrided: 100 Instrument Used: 5mm curette Tissue Removed: Fibrous, devitalized subcutaneous, biofilm, slough Severity: Fat Layer Exposed Amount of bleeding with debridement: Mild Bleeding Controlled with: Compression and gauze Patient tolerated procedure: Patient tolerated procedure well Post-Debridement Measurements and Additional Note: Post-Debridement Measurements/Treatment - Nurse 1 - General Ulcer Assessment Start: 07/20/22 09:45 Freq: Status: Active Protocol: SHAHZAD.TIA Activity Type Activity Date Activity User E-sign Co-sign Detail Recorded Client Recorded Date Recorded By Document 07/20/22 09:45 CT [id number] 07/20/22 09:47 CT Document 07/27/22 08:21 [id number] 07/27/22 08:28 Document 08/03/22 09:01 [id number] 08/03/22 09:02 07/20/22 07/27/22 08/03/22 09:45 08:21 09:01 - Today's Visit Information Type of service Follow-up Visit Follow-up Visit Follow-up Visit (Physician/BENEFIT DIRECTOR (Physician/BENEFIT DIRECTOR (Physician/BENEFIT DIRECTOR ) ) ) Arrival Mode Wheelchair Wheelchair Wheelchair Transfer Assistance Manual Manual Accompanied by spouse Patient Identification Verified (Name & Yes Yes Yes ) Patient Requires Transmission-Based No No No Precautions Safety Precautions NA Vital Signs Temperature (97.8 F-99.1 F) 96.7 F L 95.5 F L Temperature Source Temporal Temporal Pulse Rate (60-100) 95 95 96 Pulse Location Monitor Monitor Monitor Respiratory Rate (12-18) 16 18 Respiratory rate source Observation Observation Blood Pressure (90/60-120/80) 104/70 110/64 79/52 L Blood Pressure Mean (mm Hg) 81 79 61 Source Monitor Monitor Monitor Position Sitting Sitting Blood Pressure Location Left Arm Left Arm History Since Last Visit- (Skip if this is Patient's initial visit) Have you changed medications since your No No No last visit? Any new allergies or adverse reactions No No No Had a fall/change in ADL's that may No No No increase risk of falls Signs or symptoms of abuse and/or No No No neglect since last visit Have you been in the hospital since your No No No last visit? Has dressing in place as prescribed Yes Yes Yes Has compression in place as prescribed N/A N/A No Has offloadiing in place as prescribed N/A N/A Yes Experienced any changes in pain level or No No No management Left Footwear Slipper Regular Shoe Slipper Right Footwear Slipper Regular Shoe Slipper Pain Scale: 0-10 Numeric Is Patient Pain Free? Yes Yes Yes - Nurse 1 - General Ulcer Measurement Start: 07/20/22 09:45 Freq: Status: Active Protocol: Activity Type Activity Date Activity User E-sign Co-sign Detail Recorded Client Recorded Date Recorded By Document 07/20/22 09:45 CT [id number] 07/20/22 09:47 AK Document 07/27/22 08:21 [id number] 07/27/22 08:28 Document 08/03/22 09:02 [id number] 08/03/22 09:03 07/20/22 07/27/22 08/03/22 09:45 08:21 09:02 Wound Center Nurse 1 #2- L MED CALF -Combined with other wound No No -Current Size (cm) - Length 5 4.5 4.5 -Current Size (cm) - Width 1.5 1.2 1.0 -Current Size (cm) - Depth 0.5 0.5 0.5 -Total Square Cm 7.5 5.40 4.50 -Date of Last Picture (Recall this 07/20/22 field) -Photo Taken Yes Yes No -Epithelialization Medium 34-66% Small 1-33% -Tunneling No No No -Undermining/Tunneling No No No -Circular Undermining No No No -Change in Wound Grade/Stage No -Exudate Amt Medium Medium Small -Exudate Type Serosanguineous Serosanguineous -Wound Margin Distinct, Flat & Intact Flat & Intact Outline Attached -Granulation Amt Large (67-100%) Small (1-33%) Medium (34-66%) -Granulation Quality [place] -Slough/Fibrin Yes Yes Yes -Necrosis Amt Small (1-33%) Large (67-100%) Small (1-33%) -Necrotic Tissue Type Adherent Slough Adherent Slough Adherent Slough -Structure Exposed Muscle N/A N/A -Texture (Senia-wound Skin Appearance) Assessed, Assessed Assessed Scarring -Moisture (Senia-wound Skin Appearance) Assessed,Dry/ Assessed,Dry/ Assessed,Dry/ Scaly Scaly Scaly -Color (Senia-wound Skin Appearance) Assessed, Assessed Assessed Hemosiderin Staining -Temperature (Senia-wound Skin No Abnormality No Abnormality No Abnormality Appearance) (Pt Warm) (Pt Warm) (Pt Warm) -Tenderness on Palpation (Senia-wound No No No Skin Appearance) -Ulcer Cleansing Soap and Water Wound Cleanser Wound Cleanser -Foul Odor after Cleansing No No No -Anesthetic Used 5% Lidocaine 5% Lidocaine 5% Lidocaine Gel Gel Gel Lower Limb Edema Present NA NA WC - Nurse 2 - General Ulcer CM Notes Start: 07/20/22 09:45 Freq: Status: Active Protocol: Activity Type Activity Date Activity User E-sign Co-sign Detail Recorded Client Recorded Date Recorded By Document 07/20/22 12:09 [id number] 07/20/22 12:11 Document 07/27/22 12:33 [id number] 07/27/22 12:35 Document 08/03/22 12:01 [id number] 08/03/22 12:03 PL 07/20/22 07/27/22 08/03/22 12:09 12:33 12:01 Wound Center Nurse 2 #2- L MED CALF -Time 08:42 08:30 09:08 -Correct Patient Yes Yes Yes -Correct Side, Site, Position Yes Yes Yes -Correct Procedure Yes Yes Yes -Procedure Performed Yes Yes Yes -Type of Procedure Debridement Debridement Debridement -Clinical Debridement Subcutaneous Subcutaneous Subcutaneous -Tissue Removed Subcutaneous Subcutaneous Subcutaneous -Post Debridement (cm) - Length 5.0 4.8 4.8 -Post Debridement (cm) - Width 1.5 1.4 1.1 -Post Debridement (cm) - Depth 0.8 0.5 0.4 -Total Square (Post) (cm) 7.50 6.72 5.28 -Area of Debridement (cm) - Length 5.0 4.8 4.8 -Area of Debridement (cm) - Width 1.5 1.4 1.1 -Total Square (Area) (cm) 7.50 6.72 5.28 -Tunneling No No No -Undermining/Tunneling No No No -Circular Undermining No No No -Wound/Ulcer Outcome Not Healed Not Healed Not Healed -Ulcer Cleansing Rinsed/ Rinsed/ Rinsed/ Irrigated with Irrigated with Irrigated with Saline Saline Saline -Foul Odor after Cleansing No No No -Bioengineered Tissue Yes Yes Yes -Type of Bioengineered Tissue Epifix Mesh Epifix Mesh Epifix Mesh -Expiration Date 04/20/27 05/21/27 05/21/27 -Product Lot Number [id number] -Percent Used 100 100 100 -Bleeding Controlled with Pressure Pressure Pressure -Treatment Response Procedure Procedure Procedure Tolerated Well Tolerated Well Tolerated Well -Debridement - Subq, 1st 20sq cm No No No -Apply Skin Sub - 1st 25 sq cm - Legs 1 1 1 -Epifix Mesh (per sq cm) 11 11 11 Pain Scale: 0-10 Numeric Is Patient Pain Free? Yes Yes Yes WC - Nurse 3 - General Ulcer D/C NN Start: 07/20/22 09:45 Freq: Status: Active Protocol: Activity Type Activity Date Activity User E-sign Co-sign Detail Recorded Client Recorded Date Recorded By Document 07/20/22 09:45 AK [id number] 07/20/22 09:47 AK Document 07/27/22 08:57 JF [id number] 07/27/22 08:58 JF Document 08/03/22 12:01 PL [id number] 08/03/22 12:03 PL 07/20/22 07/27/22 08/03/22 09:45 08:57 12:01 Vital Signs Temperature (97.8 F-99.1 F) 96.7 F L Temperature Source Temporal Pulse Rate (60-100) 95 Pulse Location Monitor Blood Pressure (90/60-120/80) 104/70 Blood Pressure Mean (mm Hg) 81 Source Monitor Pain Scale: 0-10 Numeric Is Patient Pain Free? 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 Medication Reconcilliation completed & Yes No provided to patient/care provider Clinical Summary of Care Provided Yes No 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 (2) Non-pressure chronic ulcer of left calf with fat layer exposed: CODE(S): L97.222 - Non-pressure chronic ulcer of left calf with fat layer exposed (3) PVD (peripheral vascular disease): CODE(S): I73.9 - Peripheral vascular disease, unspecified (4) Atherosclerosis of [place] arteries of left leg with ulceration of calf: CODE(S): I70.242 - Atherosclerosis of [place] arteries of left leg with ulceration of calf (5) Unspecified severe protein-calorie malnutrition: CODE(S): E43 - Unspecified severe protein-calorie malnutrition (6) Difficulty in walking, not elsewhere classified: CODE(S): R26.2 - Difficulty in walking, not elsewhere classified (7) Hyperlipidemia: CODE(S): E78.5 - Hyperlipidemia, unspecified (8) Essential hypertension: CODE(S): I10 - Essential (primary) hypertension PLAN: Plan Patient seen and evaluated She did undergo LEAS on 05/15/2022.? Doppler evaluation of bilateral lower extremity arteries was obtained and waveforms were noted to be multiphasic and monophasic continuously bilaterally.? Velocities are as follows: Right: Common femoral artery 114; SFA proximal, mid, and distal 98, 98, and 45; popliteal artery 38; posterior tibial artery 12 mono; DP not visualized.? Left: Common femoral artery 40 to continuity/parvus; SFA proximal, mid, distal 39, 24, 22 mono continuous/parvus; popliteal artery 19 mono continuous/parvus; posterior tibial artery not visualized; dorsalis pedis artery not visualized.? Conclusion: Nonvisualization of bilateral dorsalis pedis and right posterior tibial does not exclude occlusion.? There is greater than 50% stenosis throughout the entire left lower extremity and there is left aortoiliac disease. She was referred to vascular surgeon, Dr. Easton for further evaluation.? Dr. Easton performed updated LEAS on 06/19/2022 which demonstrated right LOC 0.91 mild arterial insufficiency, Doppler/PVR waveforms and segmental pressures demonstrate distal SFA/popliteal disease.? Left LOC 0.43 severe arterial insufficiency, Doppler/PVR waveforms and segmental pressures demonstrate aortoiliac and proximal femoral disease. Recommended to patient to proceed with intervention to aid in her healing status. She has left lower extremity ulceration: #1 anterior leg ulceration remains healed. No signs of infection.?#2 posterior medial ulceration demonstrates mixed fibrogranular layer and involvement of deep muscle, ulceration measures 3.9 cm x 1.1 cm x 0.3 cm.? Ulcerations underwent debridement as noted in the clinical panel above. EpiFix graft #5 applied to posterior leg wound and dressed with Adaptic touch, Steri-Strip, and dry sterile dressing.? Tubigrip compression applied to the left lower extremity.? nursing home facility to change outer dressings as needed.? She was instructed to not get the site wet. Her ulcerations demonstrate continued improvement in healing from previous visit. Encouraged pressure reduction of the site by ensuring the leg does not hang off the edge of the bed or have anything resting against the back of the leg this is including her contralateral heel as she often sleeps on her side.? Encouraged continued protein intake and healthy amount of calories to aid in healing of her ulcerative sites. Signs and symptoms of infection were discussed today with the field rep and patient.? She was instructed if she notices increasing redness about the wound site moving up the leg, any purulent drainage from the ulcer sites, increasing foul odor, or if she experiences fever greater than 101 degree, nausea, vomiting, or chills that these are signs of a progressing infection and she should report to the ED for IV antibiotics. The following work up and care recommendations were made: Dressing: EpiFix, Adaptic touch, Steri-Strips, dry sterile dressing, Tubigrip compression Wash: Do not get wet Tissue growth optimization: EpiFix Offload: Offload left lower extremity at all times for pressure reduction about the ulcerative site Vascular: LEAS performed on 05/15/2022 demonstrate moderate arterial stenosis of the left lower extremity.? Updated LEAS performed 06/19/2022 demonstrates severe arterial insufficiency of the left lower extremity.? She is currently following with vascular surgery Dr. Easton Edema: Tubigrip compression and elevation of lower extremities at times of rest Pain: May take [id number] Tylenol extra strength for discomfort Host factors: PVD ? I answered all the patient's questions.? To return to the wound healing center in 1 week or call sooner if the patient has any questions or concerns.
[2022-08-10 11:15] VITALS: BP 142/68; PULSE 68; TEMP 36.2
[2022-08-17 08:38] VITALS: BP 89/71; PULSE 77; RESP 20; TEMP 35.6
--- NOTE | 2022-08-17 09:08 | PN.PCM_ITS ---
History of Present Illness Date of Service: 08/17/22 Chief Complaint: Left lower extremity wound x2 History of Wound: Patient is an 81-year-old female who was referred to the wound care center for left lower extremity ulceration x2. She is a resident of [facility]. 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 Prior to being seen in the wound care center she was being treated by Anushka Dong CNP. She has undergone LEAS on 05/15/2022. She is not currently on antibiotics. Review of the notes state ulceration to the left anterior lower extremity is secondary to bumping her leg, while the posterior left lower extremity ulceration started as a eschar on the back of the leg and subsequently broke down. Patient states these wounds may have been present for a year, however her history seems poor. Rehanger states wounds have been present for a few weeks. Subjective Subjective Patient is an 82-year-old female who presents to the wound care center for follow-up of to left lower extremity ulcerations.? Nursing facility has been changing the outer dressings as needed and have left graft in place.? She denies any constitutional symptoms today.? Denies any further complaints today. Objective Data Objective Data Vital Signs: Vital Signs Temp Pulse Resp BP O2 Flow Rate 96.1 F L 77 20 H 89/71 L 2 08/17/22 08:38 08/17/22 08:38 08/17/22 08:38 08/17/22 08:38 07/20/22 00:15 Oxygen Flow Rate (L/min) 2 Physical Exam Const alert, oriented x3 and no apparent distress General Appearance: cooperative HEENT normocephalic Eyes General Eye: normal appearance of both eyes Neck General: normal visual inspection Lymph Lymphatic: no lymphadenopathy noted and no lymphedema noted Resp normal respiratory effort Cardio regular rate and regular rhythm Extremity normal capillary refill, no joint enlargement, no calf tenderness and no pedal edema Extremity Narrative: DP and PT pulses nonpalpable and monophasic on Doppler.? Capillary fill time is delayed to the digits.? Normal temperature gradient with absent hair growth to the digits.? +2 pitting edema about the lower extremity - improved.? No pedal edema is noted. Musculoskeletal: Muscle strength 5/5 and age-appropriate. Skin no rashes or lesions noted, skin turgor normal and no jaundice Wound Narrative: Left lower extremity: Anterior leg ulceration healed.? Posterior medial ulcera tion demonstrates mixed fibrogranular layer. Ulcerations demonstrate no purulent drainage, no palpable fluctuance/bogginess, no visible abscess formation, no lymphangitis. Neuro moves all extremities Debridement Note Debridement Note Wound debrided: Left lower extremity Laterality: Left Wound Grade/Stage: Pressure wound stage IV Type of Debridement: Excisional debridement Anesthesia Used: 5% Lidocaine Gel Depth: Down to and including healthy tissue and in the subcutaneous layer Percentage of wound debrided: 100 Instrument Used: 5mm curette Tissue Removed: Fibrous, devitalized subcutaneous, biofilm, slough Severity: Fat Layer Exposed Amount of bleeding with debridement: Mild Bleeding Controlled with: Compression and gauze Patient tolerated procedure: Patient tolerated procedure well Post-Debridement Measurements and Additional Note: Post-Debridement Measurements/Treatment - Nurse 1 - General Ulcer Assessment Start: 07/20/22 09:45 Freq: Status: Active Protocol: KENDALL Activity Type Activity Date Activity User E-sign Co-sign Detail Recorded Client Recorded Date Recorded By Document 07/20/22 09:45 MA [id number] 07/20/22 09:47 MA Document 07/27/22 08:21 [id number] 07/27/22 08:28 Document 08/03/22 09:01 [id number] 08/03/22 09:02 Document 08/10/22 11:15 AK [id number] 08/10/22 11:18 MA Document 08/17/22 08:38 DL [id number] 08/17/22 08:45 DL 07/20/22 07/27/22 08/03/22 09:45 08:21 09:01 - Today's Visit Information Type of service Follow-up Visit Follow-up Visit Follow-up Visit (Physician/RECRUITING AND SELECTION CONSULTANT (Physician/RECRUITING AND SELECTION CONSULTANT (Physician/RECRUITING AND SELECTION CONSULTANT ) ) ) Arrival Mode Wheelchair Wheelchair Wheelchair Transfer Assistance Manual Manual Transfer Assist (Other) Accompanied by spouse Patient Identification Verified (Name & Yes Yes Yes ) Patient Requires Transmission-Based No No No Precautions Safety Precautions NA Vital Signs Temperature (97.8 F-99.1 F) 96.7 F L 95.5 F L Temperature Source Temporal Temporal Pulse Rate (60-100) 95 95 96 Pulse Location Monitor Monitor Monitor Respiratory Rate (12-18) 16 18 Respiratory rate source Observation Observation Blood Pressure (90/60-120/80) 104/70 110/64 79/52 L Blood Pressure Mean (mm Hg) 81 79 61 Source Monitor Monitor Monitor Position Sitting Sitting Blood Pressure Location Left Arm Left Arm History Since Last Visit- (Skip if this is Patient's initial visit) Have you changed medications since your No No No last visit? Any new allergies or adverse reactions No No No Had a fall/change in ADL's that may No No No increase risk of falls Signs or symptoms of abuse and/or No No No neglect since last visit Have you been in the hospital since your No No No last visit? Has dressing in place as prescribed Yes Yes Yes Has compression in place as prescribed N/A N/A No Has offloadiing in place as prescribed N/A N/A Yes Experienced any changes in pain level or No No No management Left Footwear Slipper Regular Shoe Slipper Right Footwear Slipper Regular Shoe Slipper Pain Scale: 0-10 Numeric Is Patient Pain Free? Yes Yes Yes 08/10/22 08/17/22 11:15 08:38 WC - Today's Visit Information Type of service Follow-up Visit Follow-up Visit (Physician/RECRUITING AND SELECTION CONSULTANT (Physician/RECRUITING AND SELECTION CONSULTANT ) ) Arrival Mode Wheelchair Wheelchair Transfer Assistance Manual Transfer Assist (Other) x2 Accompanied by Patient Identification Verified (Name & Yes Yes ) Patient Requires Transmission-Based No No Precautions Safety Precautions Vital Signs Temperature (97.8 F-99.1 F) 97.1 F L 96.1 F L Temperature Source Temporal Temporal Pulse Rate (60-100) 68 77 Pulse Location Monitor Monitor Respiratory Rate (12-18) 20 H Respiratory rate source Observation Blood Pressure (90/60-120/80) 142/68 H 89/71 L Blood Pressure Mean (mm Hg) 92 77 Source Monitor Monitor Position Blood Pressure Location History Since Last Visit- (Skip if this is Patient's initial visit) Have you changed medications since your No No last visit? Any new allergies or adverse reactions No No Had a fall/change in ADL's that may No No increase risk of falls Signs or symptoms of abuse and/or No No neglect since last visit Have you been in the hospital since your No No last visit? Has dressing in place as prescribed Yes Yes Has compression in place as prescribed N/A No Has offloadiing in place as prescribed N/A N/A Experienced any changes in pain level or No No management Left Footwear Slipper Right Footwear Slipper Pain Scale: 0-10 Numeric Is Patient Pain Free? Yes Yes WC - Nurse 1 - General Ulcer Measurement Start: 07/20/22 09:45 Freq: Status: Active Protocol: Activity Type Activity Date Activity User E-sign Co-sign Detail Recorded Client Recorded Date Recorded By Document 07/20/22 09:45 AK [id number] 07/20/22 09:47 AK Document 07/27/22 08:21 JF [id number] 07/27/22 08:28 JF Document 08/03/22 09:02 JF [id number] 08/03/22 09:03 JF Document 08/10/22 11:15 AK [id number] 08/10/22 11:18 AK Document 08/17/22 08:38 DL [id number] 08/17/22 08:45 DL 07/20/22 07/27/22 08/03/22 09:45 08:21 09:02 Wound Center Nurse 1 #2- L MED CALF -Combined with other wound No No -Current Size (cm) - Length 5 4.5 4.5 -Current Size (cm) - Width 1.5 1.2 1.0 -Current Size (cm) - Depth 0.5 0.5 0.5 -Total Square Cm 7.5 5.40 4.50 -Date of Last Picture (Recall this 07/20/22 field) -Photo Taken Yes Yes No -Epithelialization Medium 34-66% Small 1-33% -Tunneling No No No -Undermining/Tunneling No No No -Circular Undermining No No No -Change in Wound Grade/Stage No -Exudate Amt Medium Medium Small -Exudate Type Serosanguineous Serosanguineous -Wound Margin Distinct, Flat & Intact Flat & Intact Outline Attached -Granulation Amt Large (67-100%) Small (1-33%) Medium (34-66%) -Granulation Quality Red [place] -Slough/Fibrin Yes Yes Yes -Necrosis Amt Small (1-33%) Large (67-100%) Small (1-33%) -Necrotic Tissue Type Adherent Slough Adherent Slough Adherent Slough -Structure Exposed Muscle N/A N/A -Texture (Senia-wound Skin Appearance) Assessed, Assessed Assessed Scarring -Moisture (Senia-wound Skin Appearance) Assessed,Dry/ Assessed,Dry/ Assessed,Dry/ Scaly Scaly Scaly -Color (Senia-wound Skin Appearance) Assessed, Assessed Assessed Hemosiderin Staining -Temperature (Senia-wound Skin No Abnormality No Abnormality No Abnormality Appearance) (Pt Warm) (Pt Warm) (Pt Warm) -Tenderness on Palpation (Senia-wound No No No Skin Appearance) -Ulcer Cleansing Soap and Water Wound Cleanser Wound Cleanser -Foul Odor after Cleansing No No No -Anesthetic Used 5% Lidocaine 5% Lidocaine 5% Lidocaine Gel Gel Gel Lower Limb Edema Present NA NA 08/10/22 08/17/22 11:15 08:38 Wound Center Nurse 1 #2- L MED CALF -Combined with other wound No -Current Size (cm) - Length 4.2 3.6 -Current Size (cm) - Width 1.4 0.7 -Current Size (cm) - Depth 0.5 0.2 -Total Square Cm 5.88 2.52 -Date of Last Picture (Recall this 08/10/22 field) -Photo Taken Yes Yes -Epithelialization -Tunneling No -Undermining/Tunneling No -Circular Undermining No -Change in Wound Grade/Stage No -Exudate Amt Medium Medium -Exudate Type Serosanguineous Serosanguineous -Wound Margin Distinct, Distinct, Outline Outline Attached Attached -Granulation Amt Medium (34-66%) Large (67-100%) -Granulation Quality [place] Pale,[place] -Slough/Fibrin Yes -Necrosis Amt Medium (34-66%) Small (1-33%) -Necrotic Tissue Type Adherent Slough Adherent Slough -Structure Exposed N/A N/A -Texture (Senia-wound Skin Appearance) No Abnormality, Scarring Assessed -Moisture (Senia-wound Skin Appearance) No Abnormality, No Abnormality Assessed -Color (Senia-wound Skin Appearance) No Abnormality, Hemosiderin Assessed Staining -Temperature (Senia-wound Skin No Abnormality No Abnormality Appearance) (Pt Warm) (Pt Warm) -Tenderness on Palpation (Senia-wound No Skin Appearance) -Ulcer Cleansing Soap and Water Soap and Water -Foul Odor after Cleansing No No -Anesthetic Used 5% Lidocaine 5% Lidocaine Gel Gel Lower Limb Edema Present WC - Nurse 2 - General Ulcer CM Notes Start: 07/20/22 09:45 Freq: Status: Active Protocol: Activity Type Activity Date Activity User E-sign Co-sign Detail Recorded Client Recorded Date Recorded By Document 07/20/22 12:09 PL [id number] 07/20/22 12:11 PL Document 07/27/22 12:33 PL [id number] 07/27/22 12:35 PL Document 08/03/22 12:01 PL [id number] 08/03/22 12:03 PL Document 08/10/22 12:11 PL [id number] 08/10/22 12:12 PL 07/20/22 07/27/22 08/03/22 12:09 12:33 12:01 Wound Center Nurse 2 #2- L MED CALF -Time 08:42 08:30 09:08 -Correct Patient Yes Yes Yes -Correct Side, Site, Position Yes Yes Yes -Correct Procedure Yes Yes Yes -Procedure Performed Yes Yes Yes -Type of Procedure Debridement Debridement Debridement -Clinical Debridement Subcutaneous Subcutaneous Subcutaneous -Tissue Removed Subcutaneous Subcutaneous Subcutaneous -Post Debridement (cm) - Length 5.0 4.8 4.8 -Post Debridement (cm) - Width 1.5 1.4 1.1 -Post Debridement (cm) - Depth 0.8 0.5 0.4 -Total Square (Post) (cm) 7.50 6.72 5.28 -Area of Debridement (cm) - Length 5.0 4.8 4.8 -Area of Debridement (cm) - Width 1.5 1.4 1.1 -Total Square (Area) (cm) 7.50 6.72 5.28 -Tunneling No No No -Undermining/Tunneling No No No -Circular Undermining No No No -Wound/Ulcer Outcome Not Healed Not Healed Not Healed -Ulcer Cleansing Rinsed/ Rinsed/ Rinsed/ Irrigated with Irrigated with Irrigated with Saline Saline Saline -Foul Odor after Cleansing No No No -Bioengineered Tissue Yes Yes Yes -Type of Bioengineered Tissue Epifix Mesh Epifix Mesh Epifix Mesh -Expiration Date 04/20/27 05/21/27 05/21/27 -Product Lot Number [id number] -Percent Used 100 100 100 -Bleeding Controlled with Pressure Pressure Pressure -Treatment Response Procedure Procedure Procedure Tolerated Well Tolerated Well Tolerated Well -Debridement - Subq, 1st 20sq cm No No No -Apply Skin Sub - 1st 25 sq cm - Legs 1 1 1 -Epifix Mesh (per sq cm) 11 11 11 Pain Scale: 0-10 Numeric Is Patient Pain Free? Yes Yes Yes 08/10/22 12:11 Wound Center Nurse 2 #2- L MED CALF -Time 09:58 -Correct Patient Yes -Correct Side, Site, Position Yes -Correct Procedure Yes -Procedure Performed Yes -Type of Procedure Debridement -Clinical Debridement Subcutaneous -Tissue Removed Subcutaneous -Post Debridement (cm) - Length 3.9 -Post Debridement (cm) - Width 1.0 -Post Debridement (cm) - Depth 0.3 -Total Square (Post) (cm) 3.90 -Area of Debridement (cm) - Length 3.9 -Area of Debridement (cm) - Width 1.0 -Total Square (Area) (cm) 3.90 -Tunneling No -Undermining/Tunneling No -Circular Undermining No -Wound/Ulcer Outcome Not Healed -Ulcer Cleansing Rinsed/ Irrigated with Saline -Foul Odor after Cleansing No -Bioengineered Tissue Yes -Type of Bioengineered Tissue Epifix Mesh -Expiration Date 05/21/27 -Product Lot Number [id number] -Percent Used 100 -Bleeding Controlled with Pressure -Treatment Response Procedure Tolerated Well -Debridement - Subq, 1st 20sq cm No -Apply Skin Sub - 1st 25 sq cm - Legs 1 -Epifix Mesh (per sq cm) 11 Pain Scale: 0-10 Numeric Is Patient Pain Free? Yes - Nurse 3 - General Ulcer D/C NN Start: 07/20/22 09:45 Freq: Status: Active Protocol: Activity Type Activity Date Activity User E-sign Co-sign Detail Recorded Client Recorded Date Recorded By Document 07/20/22 09:45 AK [id number] 07/20/22 09:47 AK Document 07/27/22 08:57 JF [id number] 07/27/22 08:58 JF Document 08/03/22 12:01 PL [id number] 08/03/22 12:03 PL Document 08/10/22 11:15 AK [id number] 08/10/22 11:18 AK 07/20/22 07/27/22 08/03/22 09:45 08:57 12:01 Vital Signs Temperature (97.8 F-99.1 F) 96.7 F L Temperature Source Temporal Pulse Rate (60-100) 95 Pulse Location Monitor Blood Pressure (90/60-120/80) 104/70 Blood Pressure Mean (mm Hg) 81 Source Monitor Pain Scale: 0-10 Numeric Is Patient Pain Free? Yes Yes Yes Wound Care Center Nurse 3 #2- L MED CALF -Ulcer Cleansing Not Cleansed -Foul Odor after Cleansing -Negative Pressure Wound Therapy -Other Dressing ABD, Kerlix -Primary Dressing Covered/Secured with Dry Gauze & Dry Gauze & Secured with Roll Gauze, Roll Gauze, Tape Secured with Secured with Tape Tape -Other Covering ABD pad WC - Visit Discharge Discharge Condition Stable Stable Stable Ambulatory Status Wheelchair Wheelchair Wheelchair Transportation Private Auto Private Auto Accompanied by aid snfhome aid and spouse Medication Reconcilliation completed & Yes No provided to patient/care provider Clinical Summary of Care Provided Yes No 08/10/22 11:15 Vital Signs Temperature (97.8 F-99.1 F) 97.1 F L Temperature Source Temporal Pulse Rate (60-100) 68 Pulse Location Monitor Blood Pressure (90/60-120/80) 142/68 H Blood Pressure Mean (mm Hg) 92 Source Monitor Pain Scale: 0-10 Numeric Is Patient Pain Free? 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2 - Difficulty in walking, not elsewhere classified (7) Hyperlipidemia: CODE(S): E78.5 - Hyperlipidemia, unspecified (8) Essential hypertension: CODE(S): I10 - Essential (primary) hypertension PLAN: Plan Patient seen and evaluated She did undergo LEAS on 05/15/2022.? Doppler evaluation of bilateral lower extremity arteries was obtained and waveforms were noted to be multiphasic and monophasic continuously bilaterally.? Velocities are as follows: Right: Common femoral artery 114; SFA proximal, mid, and distal 98, 98, and 45; popliteal artery 38; posterior tibial artery 12 mono; DP not visualized.? Left: Common femoral artery 40 to continuity/parvus; SFA proximal, mid, distal 39, 24, 22 mono continuous/parvus; popliteal artery 19 mono continuous/parvus; posterior tibial artery not visualized; dorsalis pedis artery not visualized.? Conclusion: Nonvisualization of bilateral dorsalis pedis and right posterior tibial does not exclude occlusion.? There is greater than 50% stenosis throughout the entire left lower extremity and there is left aortoiliac disease. She was referred to vascular surgeon, Dr. Easton for further evaluation.? Dr. Easton performed updated LEAS on 06/19/2022 which demonstrated right LOC 0.91 mild arterial insufficiency, Doppler/PVR waveforms and segmental pressures demonstrate distal SFA/popliteal disease.? Left LOC 0.43 severe arterial insufficiency, Doppler/PVR waveforms and segmental pressures demonstrate aortoiliac and proximal femoral disease. Recommended to patient to proceed with intervention to aid in her healing status. She has left lower extremity ulceration: #1 anterior leg ulceration remains healed. No signs of infection.?#2 posterior medial ulceration demonstrates mixed fibrogranular layer and involvement of deep muscle, ulceration measures 3.8 cm x 0.9 cm x 0.3 cm.? Ulcerations underwent debridement as noted in the clinical panel above. EpiFix graft #6 applied to posterior leg wound and dressed with Adaptic touch, Steri-Strip, and dry sterile dressing.? Tubigrip compression applied to the left lower extremity.? senior living facility to change outer dressings as needed.? She was instructed to not get the site wet. Her ulcerations demonstrate continued improvement in healing from previous visit. Encouraged pressure reduction of the site by ensuring the leg does not hang off the edge of the bed or have anything resting against the back of the leg this is including her contralateral heel as she often sleeps on her side.? Encouraged continued protein intake and healthy amount of calories to aid in healing of her ulcerative sites. Signs and symptoms of infection were discussed today with the records administrator and patient.? She was instructed if she notices increasing redness about the wound site moving up the leg, any purulent drainage from the ulcer sites, increasing foul odor, or if she experiences fever greater than 101 degree, nausea, vomiting, or chills that these are signs of a progressing infection and she should report to the ED for IV antibiotics. The following work up and care recommendations were made: Dressing: EpiFix, Adaptic touch, Steri-Strips, dry sterile dressing, Tubigrip compression Wash: Do not get wet Tissue growth optimization: EpiFix Offload: Offload left lower extremity at all times for pressure reduction about the ulcerative site Vascular: LEAS performed on 05/15/2022 demonstrate moderate arterial stenosis of the left lower extremity.? Updated LEAS performed 06/19/2022 demonstrates severe arterial insufficiency of the left lower extremity.? She is currently following with vascular surgery Dr. Easton Edema: Tubigrip compression and elevation of lower extremities at times of rest Pain: May take [id number] Tylenol extra strength for discomfort Host factors: PVD ? I answered all the patient's questions.? To return to the wound healing center in 1 week or call sooner if the patient has any questions or concerns.
== END 2022-08-18 23:59 | disposition home or self-care (01) ==
LOC: WC 08:30
PROVIDERS: PCP Internal Medicine; Referring Provider Internal Medicine; Visit Provider Student in an Organized Health Care Education/Training Program
DX: I70.242 Atherosclerosis of native arteries of left leg with ulceration of calf (principal); L97.222 Non-pressure chronic ulcer of left calf with fat layer exposed; L97.223 Non-pressure chronic ulcer of left calf with necrosis of muscle; E43 Unspecified severe protein-calorie malnutrition; F03.90 Unspecified dementia, unspecified severity, without behavioral disturbance, psychotic disturbance, mood disturbance, and anxiety; J44.9 Chronic obstructive pulmonary disease, unspecified; I73.9 Peripheral vascular disease, unspecified; I65.22 Occlusion and stenosis of left carotid artery; E78.5 Hyperlipidemia, unspecified; I10 Essential (primary) hypertension; R26.2 Difficulty in walking, not elsewhere classified
CPT/HCPCS: 15271; Q4186

== ENCOUNTER 2022-09-07 08:30 | Outpatient (RCR) | payer MEDICARE, MEDICAID, SELFPAY ==
[2022-08-19 00:39] VITALS: BP 89/71; PULSE 77; RESP 20; TEMP 35.6
[2022-08-24 08:34] VITALS: BP 95/60; PULSE 91; RESP 18; TEMP 36.1
--- NOTE | 2022-08-24 08:36 | PN.PCM_ITS ---
History of Present Illness Date of Service: 08/24/22 Chief Complaint: Left lower extremity wound x2 History of Wound: Patient is an 81-year-old female who was referred to the wound care center for left lower extremity ulceration x2. She is a resident of [facility]. 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 Prior to being seen in the wound care center she was being treated by Anushka Dong CNP. She has undergone LEAS on 05/15/2022. She is not currently on antibiotics. Review of the notes state ulceration to the left anterior lower extremity is secondary to bumping her leg, while the posterior left lower extremity ulceration started as a eschar on the back of the leg and subsequently broke down. Patient states these wounds may have been present for a year, however her history seems poor. [employer] Member states wounds have been present for a few weeks. Subjective Subjective Patient is an 82-year-old female who presents to the wound care center for follow-up of to left lower extremity ulcerations.? Nursing facility has been changing the outer dressings as needed and have left graft in place. She states she has less pain each visit.? She denies any constitutional symptoms today.? Denies any further complaints today. Objective Data Objective Data Vital Signs: Vital Signs Temp Pulse Resp BP O2 Flow Rate 96.1 F L 77 20 H 89/71 L 2 08/19/22 00:39 08/19/22 00:39 08/19/22 00:39 08/19/22 00:39 08/19/22 00:39 Oxygen Flow Rate (L/min) 2 Physical Exam Const alert, oriented x3 and no apparent distress General Appearance: cooperative HEENT normocephalic Eyes General Eye: normal appearance of both eyes Neck General: normal visual inspection Lymph Lymphatic: no lymphadenopathy noted and no lymphedema noted Resp normal respiratory effort Cardio regular rate and regular rhythm Extremity normal capillary refill, no joint enlargement, no calf tenderness and no pedal edema Extremity Narrative: DP and PT pulses nonpalpable and monophasic on Doppler.? Capillary fill time is delayed to the digits.? Normal temperature gradient with absent hair growth to the digits.? +2 pitting edema about the lower extremity - improved.? No pedal edema is noted. Musculoskeletal: Muscle strength 5/5 and age-appropriate. Skin no rashes or lesions noted, skin turgor normal and no jaundice Wound Narrative: Left lower extremity: Anterior leg ulceration healed.? Posterior medial ulceration demonstrates mixed fibrogranular layer. Ulcerations demonstrate no purulent drainage, no palpable fluctuance/bogginess, no visible abscess formation, no lymphangitis. Neuro moves all extremities Debridement Note Debridement Note Wound debrided: Left lower extremity Laterality: Left Wound Grade/Stage: Pressure wound stage IV Type of Debridement: Excisional debridement Anesthesia Used: 5% Lidocaine Gel Depth: Down to and including healthy tissue and in the subcutaneous layer Percentage of wound debrided: 100 Instrument Used: 5mm curette Tissue Removed: Fibrous, devitalized subcutaneous, biofilm, slough Severity: Fat Layer Exposed Amount of bleeding with debridement: Mild Bleeding Controlled with: Compression and gauze Patient tolerated procedure: Patient tolerated procedure well 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 (2) Non-pressure chronic ulcer of left calf with fat layer exposed: CODE(S): L97.222 - Non-pressure chronic ulcer of left calf with fat layer exposed (3) PVD (peripheral vascular disease): CODE(S): I73.9 - Peripheral vascular disease, unspecified (4) Atherosclerosis of [place] arteries of left leg with ulceration of calf: CODE(S): I70.242 - Atherosclerosis of [place] arteries of left leg with ulceration of calf (5) Unspecified severe protein-calorie malnutrition: CODE(S): E43 - Unspecified severe protein-calorie malnutrition (6) Difficulty in walking, not elsewhere classified: CODE(S): R26.2 - Difficulty in walking, not elsewhere classified (7) Essential hypertension: CODE(S): I10 - Essential (primary) hypertension (8) Hyperlipidemia: CODE(S): E78.5 - Hyperlipidemia, unspecified PLAN: Plan Patient seen and evaluated She did undergo LEAS on 05/15/2022.? Doppler evaluation of bilateral lower extremity arteries was obtained and waveforms were noted to be multiphasic and monophasic continuously bilaterally.? Velocities are as follows: Right: Common femoral artery 114; SFA proximal, mid, and distal 98, 98, and 45; popliteal artery 38; posterior tibial artery 12 mono; DP not visualized.? Left: Common femoral artery 40 to continuity/parvus; SFA proximal, mid, distal 39, 24, 22 mono continuous/parvus; popliteal artery 19 mono continuous/parvus; posterior tibial artery not visualized; dorsalis pedis artery not visualized.? Conclusion: Nonvisualization of bilateral dorsalis pedis and right posterior tibial does not exclude occlusion.? There is greater than 50% stenosis throughout the entire left lower extremity and there is left aortoiliac disease. She was referred to vascular surgeon, Dr. Easton for further evaluation.? Dr. Easton performed updated LEAS on 06/19/2022 which demonstrated right LOC 0.91 mild arterial insufficiency, Doppler/PVR waveforms and segmental pressures demonstrate distal SFA/popliteal disease.? Left LOC 0.43 severe arterial insufficiency, Doppler/PVR waveforms and segmental pressures demonstrate aortoiliac and proximal femoral disease. Recommended to patient to proceed with intervention to aid in her healing status. She has left lower extremity ulceration: #1 anterior leg ulceration remains healed. No signs of infection.?#2 posterior medial ulceration demonstrates mixed fibrogranular layer and involvement of deep muscle, ulceration measures 3.8 cm x 0.7 cm x 0.3 cm.? Ulcerations underwent debridement as noted in the clinical panel above. EpiFix graft #7 applied to posterior leg wound and dressed with Adaptic touch, Steri-Strip, and dry sterile dressing.? Tubigrip compression applied to the left lower extremity.? [facility] facility to change outer dressings as needed.? She was instructed to not get the site wet. Her ulcerations demonstrate continued improvement in healing from previous visit. Encouraged pressure reduction of the site by ensuring the leg does not hang off the edge of the bed or have anything resting against the back of the leg this is including her contralateral heel as she often sleeps on her side.? Encouraged continued protein intake and healthy amount of calories to aid in healing of her ulcerative sites. Signs and symptoms of infection were discussed today with the party director and patient.? She was instructed if she notices increasing redness about the wound site moving up the leg, any purulent drainage from the ulcer sites, increasing foul odor, or if she experiences fever greater than 101 degree, nausea, vomiting, or chills that these are signs of a progressing infection and she should report to the ED for IV antibiotics. The following work up and care recommendations were made: Dressing: EpiFix, Adaptic touch, Steri-Strips, dry sterile dressing, Tubigrip compression Wash: Do not get wet Tissue growth optimization: EpiFix Offload: Offload left lower extremity at all times for pressure reduction about the ulcerative site Vascular: LEAS performed on 05/15/2022 demonstrate moderate arterial stenosis of the left lower extremity.? Updated LEAS performed 06/19/2022 demonstrates severe arterial insufficiency of the left lower extremity.? She is currently following with vascular surgery Dr. Easton Edema: Tubigrip compression and elevation of lower extremities at times of rest Pain: May take [id number] Tylenol extra strength for discomfort Host factors: PVD ? I answered all the patient's questions.? To return to the wound healing center in 2 weeks or call sooner if the patient has any questions or concerns.
--- NOTE | 2022-09-07 08:34 | PN.PCM_ITS ---
History of Present Illness Date of Service: 09/07/22 Chief Complaint: Left lower extremity wound x2 History of Wound: Patient is an 81-year-old female who was referred to the wound care center for left lower extremity ulceration x2. She is a resident of [facility]. 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 Prior to being seen in the wound care center she was being treated by Anushka Dong CNP. She has undergone LEAS on 05/15/2022. She is not currently on antibiotics. Review of the notes state ulceration to the left anterior lower extremity is secondary to bumping her leg, while the posterior left lower extremity ulceration started as a eschar on the back of the leg and subsequently broke down. Patient states these wounds may have been present for a year, however her history seems poor. Medical Laboratory Technical Officer states wounds have been present for a few weeks. Subjective Subjective Patient is an 82-year-old female who presents to the wound care center for follow-up of to left lower extremity ulcerations.? Nursing facility has been changing the outer dressings as needed and have left graft in place. feels the wound is continuing to get smaller. She denies any constitutional symptoms today.? Denies any further complaints today. Objective Data Objective Data Vital Signs: Vital Signs Temp Pulse Resp BP O2 Del Method O2 Flow Rate 96.9 F L 91 18 95/60 Nasal Cannula 2 08/24/22 08:34 08/24/22 08:34 08/24/22 08:34 08/24/22 08:34 08/24/22 08:34 08/24/22 08:34 Oxygen Flow Rate (L/min) 2 Oxygen Delivery Method Nasal Cannula Physical Exam Const alert, oriented x3 and no apparent distress General Appearance: cooperative HEENT normocephalic Eyes General Eye: normal appearance of both eyes Neck General: normal visual inspection Lymph Lymphatic: no lymphadenopathy noted and no lymphedema noted Resp normal respiratory effort Cardio regular rate and regular rhythm Extremity normal capillary refill, no joint enlargement, no calf tenderness and no pedal edema Extremity Narrative: DP and PT pulses nonpalpable and monophasic on Doppler.? Capillary fill time is delayed to the digits.? Normal temperature gradient with absent hair growth to the digits.? +2 pitting edema about the lower extremity - improved.? No pedal edema is noted. Musculoskeletal: Muscle strength 5/5 and age-appropriate. Skin no rashes or lesions noted, skin turgor normal and no jaundice Wound Narrative: Left lower extremity: Anterior leg ulceration healed.? Posterior medial ulceration demonstrates mixed fibrogranular layer. Ulcerations demonstrate no purulent drainage, no palpable fluctuance/bogginess, no visible abscess formation, no lymphangitis. Neuro moves all extremities Debridement Note Debridement Note Wound debrided: Left posterior leg Laterality: Left Wound Grade/Stage: Pressure wound stage IV Type of Debridement: Excisional debridement Anesthesia Used: 5% Lidocaine Gel Depth: Down to and including healthy tissue and in the subcutaneous layer Percentage of wound debrided: 100 Instrument Used: 5mm curette Tissue Removed: Fibrous, devitalized subcutaneous, biofilm, slough Severity: Fat Layer Exposed Amount of bleeding with debridement: Mild Bleeding Controlled with: Compression and gauze Patient tolerated procedure: Patient tolerated procedure well Post-Debridement Measurements and Additional Note: Post-Debridement Measurements/Treatment - Nurse 1 - General Ulcer Assessment Start: 08/24/22 08:34 Freq: Status: Active Protocol: [email or web address] Activity Type Activity Date Activity User E-sign Co-sign Detail Recorded Client Recorded Date Recorded By Document 08/24/22 08:34 [id number] 08/24/22 08:45 KW 08/24/22 08:34 - Today's Visit Information Type of service Follow-up Visit (Physician/FUNERAL WORKERS ) Arrival Mode Wheelchair Transfer Assistance Manual Transfer Assist (Other) VENEER SAMPLE MAKER Accompanied by and Daughter Patient Identification Verified (Name & Yes ) Patient Requires Transmission-Based No Precautions Vital Signs Temperature (97.8 F-99.1 F) 96.9 F L Temperature Source Temporal Pulse Rate (60-100) 91 Respiratory Rate (12-18) 18 Respiratory rate source Observation Oxygen Delivery Method Nasal Cannula O2 L/MIN (L/min) 2 Blood Pressure (90/60-120/80) 95/60 Blood Pressure Mean (mm Hg) 71 Source Monitor Position Semi-Fowlers Blood Pressure Location Right Arm History Since Last Visit- (Skip if this is Patient's initial visit) Have you changed medications since your No last visit? Any new allergies or adverse reactions No Had a fall/change in ADL's that may No increase risk of falls Signs or symptoms of abuse and/or No neglect since last visit Have you been in the hospital since your No last visit? Has dressing in place as prescribed Yes Has compression in place as prescribed No Has offloadiing in place as prescribed No Experienced any changes in pain level or No management Left Footwear No Footwear Right Footwear No Footwear Pain Scale: 0-10 Numeric Is Patient Pain Free? Yes WC - Nurse 1 - General Ulcer Measurement Start: 08/24/22 08:34 Freq: Status: Active Protocol: Activity Type Activity Date Activity User E-sign Co-sign Detail Recorded Client Recorded Date Recorded By Document 08/24/22 08:34 KW [id number] 08/24/22 08:45 KW 08/24/22 08:34 Wound Center Nurse 1 #2- L MED CALF -Current Size (cm) - Length 4.5 -Current Size (cm) - Width 1.0 -Current Size (cm) - Depth 0.4 -Total Square Cm 4.50 -Epithelialization Small 1-33% -Tunneling No -Undermining/Tunneling No -Circular Undermining No -Wound Margin Thickened & Rolled Under -Granulation Amt Small (1-33%) -Granulation Quality Red -Slough/Fibrin Yes -Necrosis Amt Small (1-33%) -Texture (Senia-wound Skin Appearance) Assessed -Moisture (Senia-wound Skin Appearance) Assessed -Color (Senia-wound Skin Appearance) Assessed -Temperature (Senia-wound Skin No Abnormality Appearance) (Pt Warm) -Ulcer Cleansing Soap and Water -Anesthetic Used 5% Lidocaine Gel Lower Limb Edema Present NA WC - Nurse 2 - General Ulcer CM Notes Start: 08/24/22 08:34 Freq: Status: Active Protocol: Activity Type Activity Date Activity User E-sign Co-sign Detail Recorded Client Recorded Date Recorded By Document 08/24/22 11:55 PL [id number] 08/24/22 11:56 PL 08/24/22 11:55 Wound Center Nurse 2 #2- L MED CALF -Time 09:09 -Correct Patient Yes -Correct Side, Site, Position Yes -Correct Procedure Yes -Procedure Performed Yes -Type of Procedure Debridement -Clinical Debridement Subcutaneous -Tissue Removed Subcutaneous -Post Debridement (cm) - Length 3.8 -Post Debridement (cm) - Width 0.7 -Post Debridement (cm) - Depth 0.3 -Total Square (Post) (cm) 2.66 -Area of Debridement (cm) - Length 3.8 -Area of Debridement (cm) - Width 0.7 -Total Square (Area) (cm) 2.66 -Tunneling No -Undermining/Tunneling No -Circular Undermining No -Wound/Ulcer Outcome Not Healed -Ulcer Cleansing Rinsed/ Irrigated with Saline -Foul Odor after Cleansing No -Bioengineered Tissue Yes -Type of Bioengineered Tissue Epifix -Expiration Date 03/22/27 -Product Lot Number [id number] -Percent Used 100 -Bleeding Controlled with Pressure -Treatment Response Procedure Tolerated Well -Debridement - Subq, 1st 20sq cm No -Apply Skin Sub - 1st 25 sq cm - Legs 1 -Epifix (per sq cm) 4 Pain Scale: 0-10 Numeric Is Patient Pain Free? 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 (2) Non-pressure chronic ulcer of left calf with fat layer exposed: CODE(S): L97.222 - Non-pressure chronic ulcer of left calf with fat layer exposed (3) PVD (peripheral vascular disease): CODE(S): I73.9 - Peripheral vascular disease, unspecified (4) Atherosclerosis of [place] arteries of left leg with ulceration of calf: CODE(S): I70.242 - Atherosclerosis of [place] arteries of left leg with ulceration of calf (5) Unspecified severe protein-calorie malnutrition: CODE(S): E43 - Unspecified severe protein-calorie malnutrition (6) Difficulty in walking, not elsewhere classified: CODE(S): R26.2 - Difficulty in walking, not elsewhere classified (7) Essential hypertension: CODE(S): I10 - Essential (primary) hypertension (8) Hyperlipidemia: CODE(S): E78.5 - Hyperlipidemia, unspecified PLAN: Plan Patient seen and evaluated She did undergo LEAS on 05/15/2022.? Doppler evaluation of bilateral lower extremity arteries was obtained and waveforms were noted to be multiphasic and monophasic continuously bilaterally.? Velocities are as follows: Right: Common femoral artery 114; SFA proximal, mid, and distal 98, 98, and 45; popliteal artery 38; posterior tibial artery 12 mono; DP not visualized.? Left: Common femoral artery 40 to continuity/parvus; SFA proximal, mid, distal 39, 24, 22 mono continuous/parvus; popliteal artery 19 mono continuous/parvus; posterior tibial artery not visualized; dorsalis pedis artery not visualized.? Conclusion: Nonvisualization of bilateral dorsalis pedis and right posterior tibial does not exclude occlusion.? There is greater than 50% stenosis throughout the entire left lower extremity and there is left aortoiliac disease. She was referred to vascular surgeon, Dr. Easton for further evaluation.? Dr. Easton performed updated LEAS on 06/19/2022 which demonstrated right LOC 0.91 mild arterial insufficiency, Doppler/PVR waveforms and segmental pressures demonstrate distal SFA/popliteal disease.? Left LOC 0.43 severe arterial insufficiency, Doppler/PVR waveforms and segmental pressures demonstrate aortoiliac and proximal femoral disease. Recommended to patient to proceed with intervention to aid in her healing status. She has left lower extremity ulceration: #1 anterior leg ulceration remains healed. No signs of infection.?#2 posterior medial ulceration demonstrates mixed fibrogranular layer and involvement of deep muscle, ulceration measures 2.6 cm x 0.4 cm x 0.2 cm.? Ulcerations underwent debridement as noted in the clinical panel above. EpiFix graft #8 applied to posterior leg wound and dressed with Adaptic touch, Steri-Strip, and dry sterile dressing.? Tubigrip compression applied to the left lower extremity.? senior living facility to change outer dressings as needed.? She was instructed to not get the site wet. Her ulceration demonstrates continued improvement in healing from previous visit. Encouraged pressure reduction of the site by ensuring the leg does not hang off the edge of the bed or have anything resting against the back of the leg this is including her contralateral heel as she often sleeps on her side.? Encouraged continued protein intake and healthy amount of calories to aid in healing of her ulcerative sites. Signs and symptoms of infection were discussed today with the principal planner and patient.? She was instructed if she notices increasing redness about the wound site moving up the leg, any purulent drainage from the ulcer sites, increasing foul odor, or if she experiences fever greater than 101 degree, nausea, vomiting, or chills that these are signs of a progressing infection and she should report to the ED for IV antibiotics. The following work up and care recommendations were made: Dressing: EpiFix, Adaptic touch, Steri-Strips, dry sterile dressing, Tubigrip compression Wash: Do not get wet Tissue growth optimization: EpiFix Offload: Offload left lower extremity at all times for pressure reduction about the ulcerative site Vascular: LEAS performed on 05/15/2022 demonstrate moderate arterial stenosis of the left lower extremity.? Updated LEAS performed 06/19/2022 demonstrates severe arterial insufficiency of the left lower extremity.? She is currently following with vascular surgery Dr. Easton Edema: Tubigrip compression and elevation of lower extremities at times of rest Pain: May take [id number] Tylenol extra strength for discomfort Host factors: PVD ? I answered all the patient's questions.? To return to the wound healing center in 2 weeks or call sooner if the patient has any questions or concerns.
[2022-09-07 08:38] VITALS: BP 85/49; PULSE 103; RESP 16; TEMP 35.7
== END 2022-09-18 23:59 | disposition home or self-care (01) ==
LOC: WC 08:30
PROVIDERS: PCP Internal Medicine; Referring Provider Internal Medicine; Visit Provider Student in an Organized Health Care Education/Training Program
DX: L97.223 Non-pressure chronic ulcer of left calf with necrosis of muscle (principal); L97.222 Non-pressure chronic ulcer of left calf with fat layer exposed; E43 Unspecified severe protein-calorie malnutrition; J44.9 Chronic obstructive pulmonary disease, unspecified; I73.9 Peripheral vascular disease, unspecified; I70.90 Unspecified atherosclerosis; E78.5 Hyperlipidemia, unspecified; I10 Essential (primary) hypertension; R26.2 Difficulty in walking, not elsewhere classified
CPT/HCPCS: 15271; Q4186

== ENCOUNTER 2022-10-05 08:30 | Outpatient (RCR) | payer MEDICARE, MEDICAID, SELFPAY ==
[2022-09-19 00:30] VITALS: BP 85/49; PULSE 103; RESP 16; TEMP 35.7
[2022-09-21 08:24] VITALS: BP 99/57; PULSE 95; RESP 22; TEMP 35.9
--- NOTE | 2022-09-21 08:30 | PCM.WC.PN ---
History of Present Illness Date of Service: 09/21/22 Chief Complaint: Left lower extremity wound x2 History of Wound: Patient is an 81-year-old female who was referred to the wound care center for left lower extremity ulceration x2. She is a resident of [facility]. She has history of PVD, atherosclerosis of [place] arteries of the leg, COPD, dementia, hypertension, occlusion and stenosis of the left carotid artery, and nonhealing ulceration to the left lower leg. Prior to being seen in the wound care center she was being treated by Anushka Dong CNP. She has undergone LEAS on 05/15/2022. She is not currently on antibiotics. Review of the notes state ulceration to the left anterior lower extremity is secondary to bumping her leg, while the posterior left lower extremity ulceration started as a eschar on the back of the leg and subsequently broke down. Patient states these wounds may have been present for a year, however her history seems poor. Metallographic Technician states wounds have been present for a few weeks. Subjective Subjective Patient is an 82-year-old female who presents to the wound care center for follow-up of to left lower extremity ulcerations.? Nursing facility has been changing the outer dressings as needed and have left graft in place. states wound is improving and almost closed. She denies any constitutional symptoms today.? Denies any further complaints today. Objective Data Objective Data Vital Signs: Vital Signs Temp Pulse Resp BP O2 Flow Rate 96.7 F L 95 22 H 99/57 L 2 09/21/22 08:24 09/21/22 08:24 09/21/22 08:24 09/21/22 08:24 09/21/22 08:24 Oxygen Flow Rate (L/min) 2 Physical Exam Const alert, oriented x3 and no apparent distress General Appearance: cooperative HEENT normocephalic Eyes General Eye: normal appearance of both eyes Neck General: normal visual inspection Lymph Lymphatic: no lymphadenopathy noted and no lymphedema noted Resp normal respiratory effort Cardio regular rate and regular rhythm Extremity normal capillary refill, no joint enlargement, no calf tenderness and no pedal edema Extremity Narrative: DP and PT pulses nonpalpable and monophasic on Doppler.? Capillary fill time is delayed to the digits.? Normal temperature gradient with absent hair growth to the digits.? +2 pitting edema about the lower extremity - improved.? No pedal edema is noted. Musculoskeletal: Muscle strength 5/5 and age-appropriate. Skin no rashes or lesions noted, skin turgor normal and no jaundice Wound Narrative: Left lower extremity: Anterior leg ulceration healed.? Posterior medial ulceration demonstrates mixed fibrogranular layer. Ulcerations demonstrate no purulent drainage, no palpable fluctuance/bogginess, no visible abscess formation, no lymphangitis. Neuro moves all extremities Debridement Note Debridement Note Wound debrided: Left lower extremity Laterality: Left Wound Grade/Stage: Stage IV pressure Type of Debridement: Excisional debridement Anesthesia Used: 5% Lidocaine Gel Depth: Down to and including healthy tissue and in the subcutaneous layer Percentage of wound debrided: 100 Instrument Used: 5mm curette Tissue Removed: Fibrous, devitalized subcutaneous, biofilm, slough Severity: Fat Layer Exposed Amount of bleeding with debridement: Mild Bleeding Controlled with: Compression and gauze Patient tolerated procedure: Patient tolerated procedure well Post-Debridement Measurements and Additional Note: Post-Debridement Measurements/Treatment - Nurse 1 - General Ulcer Assessment Start: 09/21/22 08:23 Freq: Status: Active Protocol: KENDALL Activity Type Activity Date Activity User E-sign Co-sign Detail Recorded Client Recorded Date Recorded By Document 09/21/22 08:24 DL [id number] 09/21/22 08:29 DL 09/21/22 08:24 - Today's Visit Information Type of service Follow-up Visit (Physician/BUCKET HOOKER ) Arrival Mode Wheelchair Transfer Assistance Manual Transfer Assist (Other) x2 Patient Identification Verified (Name & Yes ) Patient Requires Transmission-Based No Precautions Vital Signs Temperature (97.8 F-99.1 F) 96.7 F L Temperature Source Temporal Pulse Rate (60-100) 95 Pulse Location Monitor Respiratory Rate (12-18) 22 H Respiratory rate source Observation O2 L/MIN (L/min) 2 Blood Pressure (90/60-120/80) 99/57 L Blood Pressure Mean (mm Hg) 71 Source Monitor History Since Last Visit- (Skip if this is Patient's initial visit) Have you changed medications since your No last visit? Any new allergies or adverse reactions No Had a fall/change in ADL's that may No increase risk of falls Signs or symptoms of abuse and/or No neglect since last visit Have you been in the hospital since your No last visit? Has dressing in place as prescribed Yes Has compression in place as prescribed N/A Has offloadiing in place as prescribed Yes Experienced any changes in pain level or No management Pain Scale: 0-10 Numeric Is Patient Pain Free? Yes WC - Nurse 1 - General Ulcer Measurement Start: 09/21/22 08:23 Freq: Status: Active Protocol: Activity Type Activity Date Activity User E-sign Co-sign Detail Recorded Client Recorded Date Recorded By Document 09/21/22 08:24 DL [id number] 09/21/22 08:29 DL 09/21/22 08:24 Wound Center Nurse 1 #2- L MED CALF -Current Size (cm) - Length 2.6 -Current Size (cm) - Width 0.6 -Current Size (cm) - Depth 0.1 -Total Square Cm 1.56 -Photo Taken Yes -Exudate Amt Small -Wound Margin Thickened -Granulation Amt None Present (0 %) -Necrosis Amt Large (67-100%) -Necrotic Tissue Type Eschar -Structure Exposed N/A -Texture (Senia-wound Skin Appearance) Scarring -Moisture (Senia-wound Skin Appearance) Dry/Scaly -Color (Senia-wound Skin Appearance) No Abnormality -Temperature (Senia-wound Skin No Abnormality Appearance) (Pt Warm) -Tenderness on Palpation (Senia-wound No Skin Appearance) -Ulcer Cleansing Soap and Water -Anesthetic Used 5% Lidocaine Gel 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 (2) PVD (peripheral vascular disease): CODE(S): I73.9 - Peripheral vascular disease, unspecified (3) Atherosclerosis of [place] arteries of left leg with ulceration of calf: CODE(S): I70.242 - Atherosclerosis of [place] arteries of left leg with ulceration of calf (4) Unspecified severe protein-calorie malnutrition: CODE(S): E43 - Unspecified severe protein-calorie malnutrition (5) Difficulty in walking, not elsewhere classified: CODE(S): R26.2 - Difficulty in walking, not elsewhere classified (6) Hyperlipidemia: CODE(S): E78.5 - Hyperlipidemia, unspecified (7) Essential hypertension: CODE(S): I10 - Essential (primary) hypertension PLAN: Plan Patient seen and evaluated She did undergo LEAS on 05/15/2022.? Doppler evaluation of bilateral lower extremity arteries was obtained and waveforms were noted to be multiphasic and monophasic continuously bilaterally.? Velocities are as follows: Right: Common femoral artery 114; SFA proximal, mid, and distal 98, 98, and 45; popliteal artery 38; posterior tibial artery 12 mono; DP not visualized.? Left: Common femoral artery 40 to continuity/parvus; SFA proximal, mid, distal 39, 24, 22 mono continuous/parvus; popliteal artery 19 mono continuous/parvus; posterior tibial artery not visualized; dorsalis pedis artery not visualized.? Conclusion: Nonvisualization of bilateral dorsalis pedis and right posterior tibial does not exclude occlusion.? There is greater than 50% stenosis throughout the entire left lower extremity and there is left aortoiliac disease. She was referred to vascular surgeon, Dr. Easton for further evaluation.? Dr. Easton performed updated LEAS on 06/19/2022 which demonstrated right LOC 0.91 mild arterial insufficiency, Doppler/PVR waveforms and segmental pressures demonstrate distal SFA/popliteal disease.? Left LOC 0.43 severe arterial insufficiency, Doppler/PVR waveforms and segmental pressures demonstrate aortoiliac and proximal femoral disease. Recommended to patient to proceed with intervention to aid in her healing status. She has left lower extremity ulceration: #1 anterior leg ulceration remains healed. No signs of infection.?#2 posterior medial ulceration demonstrates mixed fibrogranular layer and involvement of deep muscle, ulceration measures 1.0 cm x 0.3 cm x 0.1 cm.? Ulcerations underwent debridement as noted in the clinical panel above. EpiFix graft #9 applied to posterior leg wound and dressed with Adaptic touch, Steri-Strip, and dry sterile dressing.? Tubigrip compression applied to the left lower extremity.? group home facility to change outer dressings as needed.? She was instructed to not get the site wet. Her ulceration demonstrates continued improvement in healing from previous visit. Encouraged pressure reduction of the site by ensuring the leg does not hang off the edge of the bed or have anything resting against the back of the leg this is including her contralateral heel as she often sleeps on her side.? Encouraged continued protein intake and healthy amount of calories to aid in healing of her ulcerative sites. Signs and symptoms of infection were discussed today with the painter barrel and patient.? She was instructed if she notices increasing redness about the wound site moving up the leg, any purulent drainage from the ulcer sites, increasing foul odor, or if she experiences fever greater than 101 degree, nausea, vomiting, or chills that these are signs of a progressing infection and she should report to the ED for IV antibiotics. The following work up and care recommendations were made: Dressing: EpiFix, Adaptic touch, Steri-Strips, dry sterile dressing, Tubigrip compression Wash: Do not get wet Tissue growth optimization: EpiFix Offload: Offload left lower extremity at all times for pressure reduction about the ulcerative site Vascular: LEAS performed on 05/15/2022 demonstrate moderate arterial stenosis of the left lower extremity.? Updated LEAS performed 06/19/2022 demonstrates severe arterial insufficiency of the left lower extremity.? She is currently following with vascular surgery Dr. Easton Edema: Tubigrip compression and elevation of lower extremities at times of rest Pain: May take [id number] Tylenol extra strength for discomfort Host factors: PVD ? I answered all the patient's questions.? To return to the wound healing center in 2 weeks or call sooner if the patient has any questions or concerns.
[2022-10-05 08:37] VITALS: BP 97/61; PULSE 90; RESP 16; TEMP 36
--- NOTE | 2022-10-05 09:41 | PCM.WC.PN ---
History of Present Illness Date of Service: 10/05/22 Chief Complaint: Left lower extremity wound x2 History of Wound: Patient is an 81-year-old female who was referred to the wound care center for left lower extremity ulceration x2. She is a resident of [facility]. 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 Prior to being seen in the wound care center she was being treated by Anushka Dong CNP. She has undergone LEAS on 05/15/2022. She is not currently on antibiotics. Review of the notes state ulceration to the left anterior lower extremity is secondary to bumping her leg, while the posterior left lower extremity ulceration started as a eschar on the back of the leg and subsequently broke down. Patient states these wounds may have been present for a year, however her history seems poor. Loom Mechanic states wounds have been present for a few weeks. Subjective Subjective Patient is an 82-year-old female who presents to the wound care center for follow-up of to left lower extremity ulcerations.? Nursing facility has been changing the outer dressings as needed and have left graft in place. She denies any constitutional symptoms today.? Denies any further complaints today. Objective Data Objective Data Vital Signs: Vital Signs Temp Pulse Resp BP O2 Del Method O2 Flow Rate 96.8 F L 90 16 97/61 Nasal Cannula 2 10/05/22 08:37 10/05/22 08:37 10/05/22 08:37 10/05/22 08:37 10/05/22 08:37 10/05/22 08:37 Oxygen Flow Rate (L/min) 2 Oxygen Delivery Method Nasal Cannula Physical Exam Const alert, oriented x3 and no apparent distress General Appearance: cooperative HEENT normocephalic Eyes General Eye: normal appearance of both eyes Neck General: normal visual inspection Lymph Lymphatic: no lymphadenopathy noted and no lymphedema noted Resp normal respiratory effort Cardio regular rate and regular rhythm Extremity normal capillary refill, no joint enlargement, no calf tenderness and no pedal edema Extremity Narrative: DP and PT pulses nonpalpable and monophasic on Doppler.? Capillary fill time is delayed to the digits.? Normal temperature gradient with absent hair growth to the digits.? +2 pitting edema about the lower extremity - improved.? No pedal edema is noted. Musculoskeletal: Muscle strength 5/5 and age-appropriate. Skin no rashes or lesions noted, skin turgor normal and no jaundice Wound Narrative: Left lower extremity: Anterior leg ulceration healed.? Posterior medial ulceration has healed. No signs of infection. Neuro moves all extremities Debridement Note Debridement Note No debridement was completed: No debridement was completed today Post-Debridement Measurements and Additional Note: Post-Debridement Measurements/Treatment - Nurse 1 - General Ulcer Assessment Start: 09/21/22 08:23 Freq: Status: Active Protocol: [email or web address] Activity Type Activity Date Activity User E-sign Co-sign Detail Recorded Client Recorded Date Recorded By Document 09/21/22 08:24 DL [id number] 09/21/22 08:29 DL Document 10/05/22 08:37 BMF [id number] 10/05/22 08:44 BMF 09/21/22 10/05/22 08:24 08:37 - Today's Visit Information Type of service Follow-up Visit Follow-up Visit (Physician/BORING MILL OPERATOR FOR METAL (Physician/BORING MILL OPERATOR FOR METAL ) ) Arrival Mode Wheelchair Wheelchair Transfer Assistance Manual Other Transfer Assist (Other) x2 1 Accompanied by Patient Identification Verified (Name & Yes Yes ) Patient Requires Transmission-Based No No Precautions Vital Signs Temperature (97.8 F-99.1 F) 96.7 F L 96.8 F L Temperature Source Temporal Temporal Pulse Rate (60-100) 95 90 Pulse Location Monitor Monitor Respiratory Rate (12-18) 22 H 16 Respiratory rate source Observation Observation Oxygen Delivery Method Nasal Cannula O2 L/MIN (L/min) 2 2 Blood Pressure (90/60-120/80) 99/57 L 97/61 Blood Pressure Mean (mm Hg) 71 73 Source Monitor Monitor Position Sitting Blood Pressure Location Left Arm History Since Last Visit- (Skip if this is Patient's initial visit) Have you changed medications since your No No last visit? Any new allergies or adverse reactions No No Had a fall/change in ADL's that may No No increase risk of falls Signs or symptoms of abuse and/or No No neglect since last visit Have you been in the hospital since your No No last visit? Has dressing in place as prescribed Yes Yes Has compression in place as prescribed N/A N/A Has offloadiing in place as prescribed Yes N/A Experienced any changes in pain level or No No management Left Footwear Slipper Right Footwear Slipper Pain Scale: 0-10 Numeric Is Patient Pain Free? Yes Yes WC - Nurse 1 - General Ulcer Measurement Start: 09/21/22 08:23 Freq: Status: Active Protocol: Activity Type Activity Date Activity User E-sign Co-sign Detail Recorded Client Recorded Date Recorded By Document 09/21/22 08:24 DL [id number] 09/21/22 08:29 DL Document 10/05/22 08:37 BMF [id number] 10/05/22 08:44 BMF 09/21/22 10/05/22 08:24 08:37 Wound Center Nurse 1 #2- L MED CALF -Combined with other wound No -Current Size (cm) - Length 2.6 0.1 -Current Size (cm) - Width 0.6 0.1 -Current Size (cm) - Depth 0.1 0.1 -Total Square Cm 1.56 0.01 -Photo Taken Yes -Epithelialization Large 67-100% -Tunneling No -Undermining/Tunneling No -Circular Undermining No -Exudate Amt Small None Present -Wound Margin Thickened Distinct, Outline Attached -Granulation Amt None Present (0 None Present (0 %) %) -Slough/Fibrin Yes -Necrosis Amt Large (67-100%) Small (1-33%) -Necrotic Tissue Type Eschar Eschar -Structure Exposed N/A -Texture (Senia-wound Skin Appearance) Scarring Assessed, Scarring -Moisture (Senia-wound Skin Appearance) Dry/Scaly Assessed -Color (Senia-wound Skin Appearance) No Abnormality Assessed -Temperature (Senia-wound Skin No Abnormality No Abnormality Appearance) (Pt Warm) (Pt Warm) -Tenderness on Palpation (Senia-wound No No Skin Appearance) -Ulcer Cleansing Soap and Water Soap and Water -Foul Odor after Cleansing No -Anesthetic Used 5% Lidocaine 5% Lidocaine Gel Gel WC - Nurse 2 - General Ulcer CM Notes Start: 09/21/22 08:23 Freq: Status: Active Protocol: Activity Type Activity Date Activity User E-sign Co-sign Detail Recorded Client Recorded Date Recorded By Document 09/21/22 14:15 PL [id number] 09/21/22 14:17 PL 09/21/22 14:15 Wound Center Nurse 2 -Time 08:45 -Correct Patient Yes -Correct Side, Site, Position Yes -Correct Procedure Yes -Procedure Performed Yes -Type of Procedure Debridement -Clinical Debridement Subcutaneous -Tissue Removed Subcutaneous -Post Debridement (cm) - Length 1.0 -Post Debridement (cm) - Width 0.3 -Post Debridement (cm) - Depth 0.1 -Total Square (Post) (cm) 0.30 -Area of Debridement (cm) - Length 1.0 -Area of Debridement (cm) - Width 0.3 -Total Square (Area) (cm) 0.30 -Tunneling No -Undermining/Tunneling No -Circular Undermining No -Wound/Ulcer Outcome Not Healed -Ulcer Cleansing Rinsed/ Irrigated with Saline -Foul Odor after Cleansing No -Bioengineered Tissue No -Type of Bioengineered Tissue Epifix 18mm Disc -Expiration Date 06/20/27 -Product Lot Number [id number] -Percent Used 100 -Bleeding Controlled with Pressure -Treatment Response Procedure Tolerated Well -Debridement - Subq, 1st 20sq cm No -Apply Skin Sub - 1st 25 sq cm - Legs 1 -Epifix 18mm Disc 3 Pain Scale: 0-10 Numeric Is Patient Pain Free? Yes - Nurse 3 - General Ulcer D/C NN Start: 09/21/22 08:23 Freq: Status: Active Protocol: Activity Type Activity Date Activity User E-sign Co-sign Detail Recorded Client Recorded Date Recorded By Document 09/21/22 08:59 [id number] 09/21/22 09:00 Document 10/05/22 09:01 [id number] 10/05/22 09:02 KW 09/21/22 10/05/22 08:59 09:01 Wound Care Center Nurse 3 #2- L MED CALF -Ulcer Cleansing Rinsed/ Rinsed/ Irrigated with Irrigated with Saline Saline -Foul Odor after Cleansing No -Primary Dressing Covered/Secured with Dry Gauze & Dry Gauze & Roll Gauze, Roll Gauze, Secured with Secured with Tape Tape -Other Covering ABD pads Pain Scale: 0-10 Numeric Is Patient Pain Free? Yes Yes WC - Visit Discharge Discharge Condition Stable Stable Ambulatory Status Wheelchair Wheelchair Transportation Private Auto Private Auto Accompanied by Medication Reconcilliation completed & Yes No provided to patient/care provider Clinical Summary of Care Provided Yes No Notes: correction transportation. 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 (2) PVD (peripheral vascular disease): CODE(S): I73.9 - Peripheral vascular disease, unspecified (3) Atherosclerosis of [place] arteries of left leg with ulceration of calf: CODE(S): I70.242 - Atherosclerosis of [place] arteries of left leg with ulceration of calf (4) Unspecified severe protein-calorie malnutrition: CODE(S): E43 - Unspecified severe protein-calorie malnutrition (5) Difficulty in walking, not elsewhere classified: CODE(S): R26.2 - Difficulty in walking, not elsewhere classified (6) Hyperlipidemia: CODE(S): E78.5 - Hyperlipidemia, unspecified (7) Essential hypertension: CODE(S): I10 - Essential (primary) hypertension PLAN: Plan Patient seen and evaluated She did undergo LEAS on 05/15/2022.? Doppler evaluation of bilateral lower extremity arteries was obtained and waveforms were noted to be multiphasic and monophasic continuously bilaterally.? Velocities are as follows: Right: Common femoral artery 114; SFA proximal, mid, and distal 98, 98, and 45; popliteal artery 38; posterior tibial artery 12 mono; DP not visualized.? Left: Common femoral artery 40 to continuity/parvus; SFA proximal, mid, distal 39, 24, 22 mono continuous/parvus; popliteal artery 19 mono continuous/parvus; posterior tibial artery not visualized; dorsalis pedis artery not visualized.? Conclusion: Nonvisualization of bilateral dorsalis pedis and right posterior tibial does not exclude occlusion.? There is greater than 50% stenosis throughout the entire left lower extremity and there is left aortoiliac disease. She was referred to vascular surgeon, Dr. Easton for further evaluation.? Dr. Easton performed updated LEAS on 06/19/2022 which demonstrated right LOC 0.91 mild arterial insufficiency, Doppler/PVR waveforms and segmental pressures demonstrate distal SFA/popliteal disease.? Left LOC 0.43 severe arterial insufficiency, Doppler/PVR waveforms and segmental pressures demonstrate aortoiliac and proximal femoral disease. Recommended to patient to proceed with intervention to aid in her healing status. She has left lower extremity ulceration: #1 anterior leg ulceration remains healed. No signs of infection.?#2 posterior medial ulceration has healed today. No signs of infection. Dry sterile dressing applied today to protect site. Recommended continued dry dressing for next 7 to 10 days to protect sensitive skin. Tubigrip compression applied to the left lower extremity.? snf facility to change dressings as needed. Her ulceration have healed. No signs of infection. Encouraged pressure reduction of the site by ensuring the leg does not hang off the edge of the bed or have anything resting against the back of the leg this is including her contralateral heel as she often sleeps on her side.? Encouraged continued protein intake and healthy amount of calories to aid in healing of her ulcerative sites. The following work up and care recommendations were made: Dressing: Dry sterile dressing next 7 to 10 days Wash: Soap and water Tissue growth optimization: None Offload: Offload left lower extremity at all times for pressure reduction about the ulcerative site Vascular: LEAS performed on 05/15/2022 demonstrate moderate arterial stenosis of the left lower extremity.? Updated LEAS performed 06/19/2022 demonstrates severe arterial insufficiency of the left lower extremity.? She is currently following with vascular surgery Dr. Easton Edema: Tubigrip compression and elevation of lower extremities at times of rest Pain: May take [id number] Tylenol extra strength for discomfort Host factors: PVD ? Due to patient's healed status she is being discharged from the wound care center today. I answered all the patient's questions.? To return to the wound healing center as needed or call sooner if the patient has any questions or concerns.
== END 2022-10-05 15:56 | disposition home or self-care (01) ==
LOC: WC 08:30
PROVIDERS: PCP Internal Medicine; Referring Provider Internal Medicine; Visit Provider Student in an Organized Health Care Education/Training Program
DX: I70.242 Atherosclerosis of native arteries of left leg with ulceration of calf (principal); L97.223 Non-pressure chronic ulcer of left calf with necrosis of muscle; E43 Unspecified severe protein-calorie malnutrition; J44.9 Chronic obstructive pulmonary disease, unspecified; E78.5 Hyperlipidemia, unspecified; I10 Essential (primary) hypertension; R26.2 Difficulty in walking, not elsewhere classified
CPT/HCPCS: 15271; 99213; Q4186; G0463